=== PATIENT | male | born 1955 | race Caucasian/White ===

== ENCOUNTER 2024-08-28 14:06 | Emergency (ER) | payer MEDICARE, MEDICAID, SELFPAY ==
[2024-08-28] VITALS (9 sets, daily range): BP systolic 114–176; BP diastolic 41–98; PULSE 67–94; RESP 18–22; TEMP 36.7; O2SAT 92–100; BMI 57.7
--- NOTE | 2024-08-28 14:45 | ED_ITS ---
Documented by User: JARAD Joseph 08/28/24 17:04 HPI - Wound/Laceration 2 General: Chief Complaint: Wound/Laceration Stated Complaint: bleeding in back (just had surgery) Time Seen by Provider: 08/28/24 14:07 Source: patient and family Mode of arrival: wheelchair Limitations: no limitations History of Present Illness: Patient is a 69-year-old male who overall is a poor historian, here along with his significant other for evaluation of bleeding involving a lower back wound. Patient states back in mid May they underwent surgery for an area to his lower back that they described as a cyst . They state following the surgery they never had any formal follow-up with the surgeon. They have since been following up with wound care in [place] over the past 3 months. At some point they did have a wound VAC on the area. states they were recently told that it was cancer. Unknown why this diagnosis took so long to be established as original surgery was back in May. thinks maybe they repeated some type of biopsy through wound care? Ultimately felt like area was healing but over the past 2 weeks it has significantly worsened. Patient and seem fed up with [place] and want to move all of his services here. Patient states he is a diabetic. His main complaint today was that the wound is saturating his dressing with bloody discharge. Onset (ago): week(s) Location: back Associated symptoms: Reports no associated symptoms; Denies chills or fever(s) Related Data Home Medications Medication Instructions Recorded Confirmed atorvastatin 20 mg tablet 20 mg PO QPM 08/28/24 08/28/24 fluticasone propionate 50 2 spray intranasal DAILY 08/28/24 08/28/24 mcg/actuation nasal spray,suspension gabapentin 100 mg capsule 100 mg PO QID 08/28/24 08/28/24 glipizide 10 mg tablet 10 mg PO DAILY 08/28/24 08/28/24 hydralazine 10 mg tablet 10 mg PO TID 08/28/24 08/28/24 hydrocodone 7.5 mg-acetaminophen 1 tab PO .Q4-6H PRN Pain 08/28/24 08/28/24 325 mg tablet insulin glargine 100 unit/mL (3 See Rx Instructions .Route .COMPLEX 08/28/24 08/28/24 mL) subcutaneous pen (Lantus Solostar U-100 Insulin) ipratropium 20 mcg-albuterol 100 2 puff inhalation QID 08/28/24 08/28/24 mcg/actuation mist for inhalation (Combivent Respimat) levofloxacin 500 mg tablet 500 mg PO DAILY 08/28/24 08/28/24 lisinopril 40 mg tablet 40 mg PO DAILY 08/28/24 08/28/24 metformin 1,000 mg tablet 1,000 mg PO BID 08/28/24 08/28/24 metronidazole 1 % topical gel 1 applic topical DAILY 08/28/24 08/28/24 pantoprazole 40 mg tablet,delayed 40 mg PO DAILY 08/28/24 08/28/24 release potassium chloride 20 mEq 20 meq PO DAILY 08/28/24 08/28/24 tablet,extended release(part/cryst) sitagliptin phosphate 100 mg 100 mg PO DAILY 08/28/24 08/28/24 tablet (Januvia) zolpidem 5 mg tablet 5 mg PO BEDTIME PRN Sleep 08/28/24 08/28/24 Allergies Allergy/AdvReac Type Severity Reaction Status Date / Time Penicillins Allergy Unknown Verified 08/28/24 14:42 Review of Systems 2 Const: Denies: fever(s), chills, body aches, fatigue or malaise Card: Denies: chest pain Resp: Denies: dyspnea GI: Denies: abdominal pain : Denies: flank pain or dysuria Musc: Reports: back pain; Denies: neck pain, extremity pain, extremity swelling, joint pain or joint swelling Skin/Breast: Reports: other (wound to lower back) Neuro: Denies: headache(s), numbness in extremities, weakness in extremities or sensory changes Physical Exam 2 Const: COMMON NORMALS: no acute distress, patient oriented x3 and alert E XAM LIMITATIONS: other limitations (poor historian; grumpy/agitated ) GENERAL APPEARANCE: cooperative NUTRITIONAL APPEARANCE: obese morbidly obese (super morbid obesity with a BMI of 57.7) ORIENTATION/CONSCIOUSNESS: Yes awake, Yes oriented to person, Yes oriented to place and Yes oriented to time Resp: COMMON NORMALS: normal respiratory effort and clear to auscultation bilaterally AUSCULTATION: clear to auscultation bilaterally Cardio: COMMON NORMALS: regular rate and regular rhythm RATE: regular rate RHYTHM: regular rhythm : COMMON NORMALS: Yes no CVA tenderness BLADDER/KIDNEY EXAM: Yes no CVA tenderness Back/Pelvis: COMMON NORMALS: no CVA tenderness BACK IMAGE (MALE): 1. patient has a very large probable necrotic foul smelling tumor involving his lower back; dressing is saturated with blood but I do not see any active bleeding with inspection; he has significant surrounding edema involving his lower back Extremity: GENERAL: Yes normal exam except as noted Neuro: ROSA COMA SCALE: document GCS findings Rosa coma scale eye opening: Spontaneous Rosa coma scale verbal response: Orientated Guthrie coma scale motor response: Obey commands Guthrie coma scale total score: 15 COMMON NORMALS: patient oriented x3, moves all extremities, no focal motor deficits and no sensory deficits noted SENSORIUM/ORIENTATION: Yes alert, Yes oriented to person, Yes oriented to place and Yes oriented to time Skin: NARRATIVE SKIN EXAM: see above Course 2 Vital Signs: Vital signs: Vital Signs Temperature 98.0 F 08/28/24 14:29 Pulse Rate 94 08/28/24 23:41 Respiratory Rate 22 H 08/28/24 23:41 Blood Pressure 114/72 08/28/24 23:41 Pulse Oximetry 100 08/28/24 23:41 Oxygen Delivery Me thod Room Air 08/28/24 23:41 MDM - Wound/Laceration Lab Data 08/28/24 15:30 08/28/24 15:[address] 08/28/24 15:06 IMPRESSION: There is a large cavitary mass in the lower midline back extending from the skin surface down to the spinous process L4 measuring at least 14.8 x 9.6 x 11.2 cm on (series 4, image 7). This is concerning for neoplasm. Laboratory Results WBC 13.62 10^3/uL (3.29-11.43) H 08/28/24 15:30 RBC 4.74 10^6/uL (3.85-5.65) 08/28/24 15:30 Hgb 11.90 g/dL (11.27-16.99) 08/28/24 15:30 Hct 38.7 % (37-53) 08/28/24 15:30 MCV 81.6 fl (82-101) L 08/28/24 15:30 MCH 25.1 pg (27-33) L 08/28/24 15:30 MCHC 30.7 g/dL (30-55) 08/28/24 15:30 RDW 14.4 % (12.1-15.1) 08/28/24 15:30 Plt Count 374 10^3/cmm (157-399) 08/28/24 15:30 MPV 9.4 fL (7.4-10.4) 08/28/24 15:30 Neut % (Auto) 76.7 % 08/28/24 15:30 Lymph % (Auto) 14.8 % 08/28/24 15:30 [place] % (Auto) 6.1 % 08/28/24 15:30 Eos % (Auto) 1.8 % 08/28/24 15:30 Baso % (Auto) 0.4 % 08/28/24 15:30 Neut # (Auto) 10.44 10^3/uL (1.8-7.7) H 08/28/24 15:30 Lymph # (Auto) 2.0 10^3/uL (0.8-4.8) 08/28/24 15:30 [place] # (Auto) 0.8 10^3/uL (0.2-0.9) 08/28/24 15:30 Eos # (Auto) 0.2 10^3/uL (0.0-0.8) 08/28/24 15:30 Baso # (Auto) 0.1 10^3/uL (0.0-0.1) 08/28/24 15:30 Nucleated RBC % (auto) 0 % 08/28/24 15:30 Nucleated RBCs # 0.0 /100WBC 08/28/24 15:30 ESR 27 mm/hr (0-10) H 08/28/24 15:30 Sodium 136 mmol/L (136-145) 08/28/24 15:30 Potassium 4.2 mmol/L (3.5-5.1) 08/28/24 15:30 Chloride 99 mmol/L (98-107) 08/28/24 15:30 Carbon Dioxide 25 mmol/L (22-29) 08/28/24 15:30 Anion Gap 16.2 (5-19) 08/28/24 15:30 BUN 10 mg/dL (8-23) 08/28/24 15:30 Creatinine 0.7 mg/dL (0.7-1.2) 08/28/24 15:30 GFR Calculation 112.5 mL/min (90-130) 08/28/24 15:30 Glucose 130 mg/dL (65-115) H 08/28/24 15:30 POC Glucose 126 mg/dL (70-110) H 08/28/24 18:54 Calculated Osmolality 283 mOsm/kg (285-295) L 08/28/24 15:30 Lactic Acid 3.3 mmol/L (0.5-2.2) H 08/28/24 15:30 Lactic Acid (Sepsis) 2.0 mmol/L (0.5-2.2) 08/28/24 18:31 Calcium 9.5 mg/dL (8.5-10.5) 08/28/24 15:30 Total Bilirubin 0.3 mg/dL (0.15-1.2) 08/28/24 15:30 AST 13 U/L (0-40) 08/28/24 15:30 ALT 12 U/L (0-41) 08/28/24 15:30 Alkaline Phosphatase 75 U/L (40-130) 08/28/24 15:30 C-Reactive Protein 43.9 mg/L (0.0-4.9) H 08/28/24 15:30 Total Protein 7.1 g/dL (6.6-8.7) 08/28/24 15:30 Albumin 3.7 g/dL (3.5-5.2) 08/28/24 15:30 Globulin 3.4 g/dL (1.3-4.6) 08/28/24 15:30 Discharge Plan Discharge Patient Disposition: Transfer to ED Clinical Impression: Mass on back Condition: Stable Prescriptions: No Action hydralazine 10 mg tablet 10 mg PO TID atorvastatin 20 mg tablet 20 mg PO QPM glipizide 10 mg tablet 10 mg PO DAILY hydrocodone-acetaminophen 7.5-325 mg tablet 1 tab PO .Q4-6H PRN (Reason: Pain) pantoprazole 40 mg tablet,delayed release (DR/EC) 40 mg PO DAILY metformin 1,000 mg tablet 1,000 mg PO BID zolpidem 5 mg tablet 5 mg PO BEDTIME PRN (Reason: Sleep) gabapentin 100 mg capsule 100 mg PO QID levofloxacin 500 mg tablet 500 mg PO DAILY lisinopril 40 mg tablet 40 mg PO DAILY fluticasone propionate 50 mcg/actuation spray,suspension 2 spray INTRANASAL DAILY metronidazole 1 % gel 1 applic TOPICAL DAILY Januvia 100 mg tablet 100 mg PO DAILY insulin glargine [Lantus Solostar U-100 Insulin] 100 unit/mL (3 mL) insulin pen See Rx Instructions .ROUTE .COMPLEX Rx Instructions: INJECT 50 UNITS subcutaneously DAILY; INCREASE BY 2 UNITS EVERY TUESDAY AND TUESDAY IF PRIOR BLOOd SUGAR > 140. MAX 100 UNITS DAILY Combivent Respimat 20-100 mcg/actuation mist 2 puff INHALATION QID potassium chloride 20 mEq tablet,ER particles/crystals 20 meq PO DAILY Referrals: OCTAVIO Peters FNP [Primary Care Provider] - Tao,SVETLANA Sawyer [Family Provider] - Sign Out Sign Out Data: Patient Sign Out occurred on 08/28/24 at 17:10. Patient's care was discussed, and care was transferred from JARAD Joseph to JARAD Cotto. Coding Level of Care Code ED Residential Recycle Driver for Chg Fwd Documented by User: JARAD Cotto 08/28/24 23:58 HPI - Wound/Laceration 2 General: Chief Complaint: Wound/Laceration Stated Complaint: bleeding in back (just had surgery) Time Seen by Provider: 08/28/24 14:07 Related Data Home Medications Medication Instructions Recorded Confirmed atorvastatin 20 mg tablet 20 mg PO QPM 08/28/24 08/28/24 fluticasone propionate 50 2 spray intranasal DAILY 08/28/24 08/28/24 mcg/actuation nasal spray,suspension gabapentin 100 mg capsule 100 mg PO QID 08/28/24 08/28/24 glipizide 10 mg tablet 10 mg PO DAILY 08/28/24 08/28/24 hydralazine 10 mg tablet 10 mg PO TID 08/28/24 08/28/24 hydrocodone 7.5 mg-acetaminophen 1 tab PO .Q4-6H PRN Pain 08/28/24 08/28/24 325 mg tablet insulin glargine 100 unit/mL (3 See Rx Instructions .Route .COMPLEX 08/28/24 08/28/24 mL) subcutaneous pen (Lantus Solostar U-100 Insulin) ipratropium 20 mcg-albuterol 100 2 puff inhalation QID 08/28/24 08/28/24 mcg/actuation mist for inhalation (Combivent Respimat) levofloxacin 500 mg tablet 500 mg PO DAILY 08/28/24 08/28/24 lisinopril 40 mg tablet 40 mg PO DAILY 08/28/24 08/28/24 metformin 1,000 mg tablet 1,000 mg PO BID 08/28/24 08/28/24 metronidazole 1 % topical gel 1 applic topical DAILY 08/28/24 08/28/24 pantoprazole 40 mg tablet,delayed 40 mg PO DAILY 08/28/24 08/28/24 release potassium chloride 20 mEq 20 meq PO DAILY 08/28/24 08/28/24 tablet,extended release(part/cryst) sitagliptin phosphate 100 mg 100 mg PO DAILY 08/28/24 08/28/24 tablet (Januvia) zolpidem 5 mg tablet 5 mg PO BEDTIME PRN Sleep 08/28/24 08/28/24 Allergies Allergy/AdvReac Type Severity Reaction Status Date / Time Penicillins Allergy Unknown Verified 08/28/24 14:42 Physical Exam 2 Back/Pelvis: BACK IMAGE (MALE): 1. patient has a very large probable necrotic foul smelling tumor involving his lower back; dressing is saturated with blood but I do not see any active bleeding with inspection; he has significant surrounding edema involving his lower back Neuro: ROSA COMA SCALE: document GCS findings Guthrie coma scale total score: 15 Course 2 Vital Signs: Vital signs: Vital Signs Temperature 98.0 F 08/28/24 14:29 Pulse Rate 94 08/28/24 23:41 Respiratory Rate 22 H 08/28/24 23:41 Blood Pressure 114/72 08/28/24 23:41 Pulse Oximetry 100 08/28/24 23:41 Oxygen Delivery Nh thod Room Air 08/28/24 23:41 MDM - Wound/Laceration Medical Decision Making Care of patient transferred to id by dayshift provider. This patient had presented with pain to low back, associated with a large lumbar lesion. He had surgical I&D back in May, however he never followed up with general surgery. He did state that he had this lesion biopsied and was told it was cancerous, however does not note any oncological follow-up. Instead his had been tending to the wound and he did note following up with wound care, reports were obtained from the procedure initially as well as from wound care. CT here showed large cavitary mass that extended from skin to L4 and seemed to resemble a neoplastic process. Initially I called [facility], where he had the initial procedure performed, and spoke with orthopedics as well as general surgery. Physician that did the procedure was a locum and was not available to speak, however after physicians there reviewed images of the lesion as well as his CT scan, recommended this be transferred to a tertiary facility with surgical oncology. After calling [facility], [facility], and [facility], there was no availability. Finally spoke with surgical oncologist, Dr. Ortiz at [facility], who agrees to accept the patient and is requesting that we transfer patient's chart if we can track down his pathology reports and previous surgical note. I then spoke with a Dr. Rosado in the emergency department who kindly agrees to accept the patient for transfer ED to ED. Patient's vitals and pain have been completely stable throughout the ED stay. Although his initial lactic was elevated at 3.3, reflex noted to be 2.0, this was after being given dose of IV Vanco and fluids. I informed patient and of plan for transfer, they are agreeing with the plan at this time and all other questions and concerns addressed. Discussed this case with Dr. Liseth weber in the emergency department. Awaiting BLS transfer at this time. Lab Data 08/28/24 15:30 08/28/24 15:[address] 08/28/24 15:06 IMPRESSION: There is a large cavitary mass in the lower midline back extending from the skin surface down to the spinous process L4 measuring at least 14.8 x 9.6 x 11.2 cm on (series 4, image 7). This is concerning for neoplasm. Laboratory Results WBC 13.62 10^3/uL (3.29-11.43) H 08/28/24 15:30 RBC 4.74 10^6/uL (3.85-5.65) 08/28/24 15:30 Hgb 11.90 g/dL (11.27-16.99) 08/28/24 15: Hct 38.7 % (37-53) 08/28/24 15:30 MCV 81.6 fl (82-101) L 08/28/24 15: MCH 25.1 pg (27-33) L 08/28/24 15: MCHC 30.7 g/dL (30-55) 08/28/24 15: RDW 14.4 % (12.1-15.1) 08/28/24 15: Plt Count 374 10^3/cmm (157-399) 08/28/24 15: MPV 9.4 fL (7.4-10.4) 08/28/24 15: Neut % (Auto) 76.7 % 08/28/24 15: Lymph % (Auto) 14.8 % 08/28/24 15:30 [place] % (Auto) 6.1 % 08/28/24 15:30 Eos % (Auto) 1.8 % 08/28/24 15: Baso % (Auto) 0.4 % 08/28/24 15: Neut # (Auto) 10.44 10^3/uL (1.8-7.7) H 08/28/24 15:30 Lymph # (Auto) 2.0 10^3/uL (0.8-4.8) 08/28/24 15:30 [place] # (Auto) 0.8 10^3/uL (0.2-0.9) 08/28/24 15:30 Eos # (Auto) 0.2 10^3/uL (0.0-0.8) 08/28/24 15:30 Baso # (Auto) 0.1 10^3/uL (0.0-0.1) 08/28/24 15:30 Nucleated RBC % (auto) 0 % 08/28/24 15: Nucleated RBCs # 0.0 /100WBC 08/28/24 15: ESR 27 mm/hr (0-10) H 08/28/24 15:30 Sodium 136 mmol/L (136-145) 08/28/24 15:30 Potassium 4.2 mmol/L (3.5-5.1) 08/28/24 15:30 Chloride 99 mmol/L (98-107) 08/28/24 15:30 Carbon Dioxide 25 mmol/L (22-29) 08/28/24 15:30 Anion Gap 16.2 (5-19) 08/28/24 15:30 BUN 10 mg/dL (8-23) 08/28/24 15:30 Creatinine 0.7 mg/dL (0.7-1.2) 08/28/24 15:30 GFR Calculation 112.5 mL/min (90-130) 08/28/24 15:30 Glucose 130 mg/dL (65-115) H 08/28/24 15:30 POC Glucose 126 mg/dL (70-110) H 08/28/24 18:54 Calculated Osmolality 283 mOsm/kg (285-295) L 08/28/24 15:30 Lactic Acid 3.3 mmol/L (0.5-2.2) H 08/28/24 15:30 Lactic Acid (Sepsis) 2.0 mmol/L (0.5-2.2) 08/28/24 18:31 Calcium 9.5 mg/dL (8.5-10.5) 08/28/24 15:30 Total Bilirubin 0.3 mg/dL (0.15-1.2) 08/28/24 15:30 AST 13 U/L (0-40) 08/28/24 15:30 ALT 12 U/L (0-41) 08/28/24 15:30 Alkaline Phosphatase 75 U/L (40-130) 08/28/24 15:30 C-Reactive Protein 43.9 mg/L (0.0-4.9) H 08/28/24 15:30 Total Protein 7.1 g/dL (6.6-8.7) 08/28/24 15:30 Albumin 3.7 g/dL (3.5-5.2) 08/28/24 15:30 Globulin 3.4 g/dL (1.3-4.6) 08/28/24 15:30 All radiology interpretation(s) finalized by discharge Discharge Plan Discharge Patient Disposition: Transfer to ED Clinical Impression: Mass on back Condition: Stable Prescriptions: No Action hydralazine 10 mg tablet 10 mg PO TID atorvastatin 20 mg tablet 20 mg PO QPM glipizide 10 mg tablet 10 mg PO DAILY hydrocodone-acetaminophen 7.5-325 mg tablet 1 tab PO .Q4-6H PRN (Reason: Pain) pantoprazole 40 mg tablet,delayed release (DR/EC) 40 mg PO DAILY metformin 1,000 mg tablet 1,000 mg PO BID zolpidem 5 mg tablet 5 mg PO BEDTIME PRN (Reason: Sleep) gabapentin 100 mg capsule 100 mg PO QID levofloxacin 500 mg tablet 500 mg PO DAILY lisinopril 40 mg tablet 40 mg PO DAILY fluticasone propionate 50 mcg/actuation spray,suspension 2 spray INTRANASAL DAILY metronidazole 1 % gel 1 applic TOPICAL DAILY Januvia 100 mg tablet 100 mg PO DAILY insulin glargine [Lantus Solostar U-100 Insulin] 100 unit/mL (3 mL) insulin pen See Rx Instructions .ROUTE .COMPLEX Rx Instructions: INJECT 50 UNITS subcutaneously DAILY; INCREASE BY 2 UNITS EVERY TUESDAY AND TUESDAY IF PRIOR BLOOd SUGAR > 140. MAX 100 UNITS DAILY Combivent Respimat 20-100 mcg/actuation mist 2 puff INHALATION QID potassium chloride 20 mEq tablet,ER particles/crystals 20 meq PO DAILY Referrals: OCTAVIO Peters FNP [Primary Care Provider] - Tao,SVETLANA Sawyer [Family Provider] - Sign Out Sign Out Data: Patient Sign Out occurred on 08/28/24 at 17:10. Patient's care was discussed, and care was transferred from JARAD Joseph to JARAD Cotto. Coding Level of Care Code ED Residential Recycle Driver for Justine Hilliard
--- NOTE | 2024-08-28 15:06 | CTR_ITS ---
PROCEDURE INFORMATION: Exam: CT Pelvis With Contrast Exam date and time: 08/28/2024 5:51 PM Age: 69 years old Clinical indication: Mass, lump, or swelling; Other: Sacral region; Prior surgery; Surgery date: 1-6 months; Surgery type: Spot removed from base of spine x3 mon ago; Additional info: Necrotic tumor lower back TECHNIQUE: Imaging protocol: Computed tomography of the pelvis with contrast. Radiation optimization: All CT scans at this facility use at least one of these dose optimization techniques: automated exposure control; mA and/or kV adjustment per patient size (includes targeted exams where dose is matched to clinical indication); or iterative reconstruction. Contrast material: OMNIPAQUE 350; Contrast volume: 100 ml; Contrast route: INTRAVENOUS (IV); COMPARISON: US scrotum [id number] 09/28/2019 9:50 PM RADIATION DOSE METRICS: Total DLP (mGy-cm): 1795.63 FINDINGS: Intestine: Visualized small and large intestine are unremarkable. Appendix: No evidence of appendicitis. Intraperitoneal space: Unremarkable. No free air. No significant fluid collection. Lymph nodes: Unremarkable. No enlarged lymph nodes. Reproductive: Normal as visualized. Urinary bladder: Normal. No mass. Bones/joints: There is a large cavitary mass in the lower midline back extending from the skin surface down to the spinous process L4 measuring at least 14.8 x 9.6 x 11.2 cm on (series 4, image 7). This is concerning for neoplasm. Soft tissues: Unremarkable. CT/CT pelvis w con* [id number] IMPRESSION: There is a large cavitary mass in the lower midline back extending from the skin surface down to the spinous process L4 measuring at least 14.8 x 9.6 x 11.2 cm on (series 4, image 7). This is concerning for neoplasm.
--- NOTE | 2024-08-28 15:44 | PC.PHAR ---
Addendum entered by Cortney Bird 08/28/24 15:45: pt states preferred pharmacy is [facility] but current med list is at [facility] Original Note: med rec completed via current pharmacy med list faxed from [facility] in [place].
[2024-08-28 15:48] LABS: Basophils # 0.1 10^3/uL (0.0-0.1); Basophils % 0.4 %; Eosinophils # 0.2 10^3/uL (0.0-0.8); Eosinophils % 1.8 %; Hematocrit 38.7 % (37-53); Lymphocytes % 14.8 %; Mean Corpuscular HGB Conc 30.7 g/dL (30-55); Mean Corpuscular Hemoglobin 25.1 pg (27-33); Mean Corpuscular Volume 81.6 fl (82-101); Mean Platelet Volume 9.4 fL (7.4-10.4); Monocytes # 0.8 10^3/uL (0.2-0.9); Monocytes % 6.1 %; Neutrophils # 10.44 10^3/uL (1.8-7.7); Neutrophils % 76.7 %; Nucleated Red Blood Cells % 0 %; Platelet Count 374 10^3/cmm (157-399); Red Blood Count 4.74 10^6/uL (3.85-5.65); Red Cell Distribution Width 14.4 % (12.1-15.1); White Blood Count 13.62 10^3/uL (3.29-11.43)
[2024-08-28 16:04] LABS: Lactic Sepsis W/Reflex 3.3 mmol/L (0.5-2.2)
[2024-08-28 16:05] LABS: Alanine Aminotransferase 12 U/L (0-41); Albumin Level 3.7 g/dL (3.5-5.2); Alkaline Phosphatase 75 U/L (40-130); Anion Gap 16.2 (5-19); Aspartate Amino Transferase 13 U/L (0-40); Blood Urea Nitrogen 10 mg/dL (8-23); Calcium 9.5 mg/dL (8.5-10.5); Carbon Dioxide 25 mmol/L (22-29); Chloride 99 mmol/L (98-107); Globulin 3.4 g/dL (1.3-4.6); Glomerular Filtration Rate 112.5 mL/min (90-130); Glucose 130 mg/dL (65-115); Osmolality Calculated 283 mOsm/kg (285-295); Potassium 4.2 mmol/L (3.5-5.1); Sodium 136 mmol/L (136-145); Total Bilirubin 0.3 mg/dL (0.15-1.2); Total Protein 7.1 g/dL (6.6-8.7)
[2024-08-28] MEDS: HYDROmorphone 1 mg/mL INJ 1 mL IVP (17:27)
[2024-08-28 17:29] LABS: Erythrocyte Sedimentation Rate 27 mm/hr (0-10); Reflex Lactate Order REFLEX LACTIC ORDERD
[2024-08-28 17:48] LABS: C Reactive Protein 43.9 mg/L (0.0-4.9)
[2024-08-28] MEDS: iohexol 350 mg/mL 500 mL Btl (per mL) IV (17:54)
[2024-08-28] MEDS: vancomycin 1,250 MG/250 ML PIGGYBACK 166.67 MG IV (18:14)
[2024-08-28 18:56] LABS: Glucose Point of Care 126 mg/dL (70-110)
--- NOTE | 2024-08-28 19:41 | PC.NURSE ---
Pt has asked multiple times for something to eat, pt is diabetic, this nurse checked blood sugar, 126, B. Malena notified, Malena reports as NPO at this time until he speaks to the surgeon, Pt informed of this verbally.
--- NOTE | 2024-08-28 21:11 | PC.NURSE ---
Malena reports that pt may eat, pt given sandwich, jello, pudding, and sprite zero.
--- NOTE | 2024-08-29 00:05 | PC.NURSE ---
called [facility] [id number] for pt transfer. They are unable to transfer at this time d/t pending transfer from the floor.
[2024-08-29] MEDS: HYDROmorphone 1 mg/mL INJ 1 mL IVP (00:48)
[2024-08-29 00:59] VITALS: BP 119/66; PULSE 73; RESP 18; O2SAT 99
== END 2024-08-29 01:02 ==
PROVIDERS: Emergency Medicine; Physician Assistant; Emergency Provider Physician Assistant; PCP Nurse Practitioner Family
DX: R22.2 Localized swelling, mass and lump, trunk (principal); Z79.4 Long term (current) use of insulin; Z79.84 Long term (current) use of oral hypoglycemic drugs; E11.9 Type 2 diabetes mellitus without complications
CPT/HCPCS: 36416; 72193; 80053; 82962; 83605; 85025; 85651; 86140; 87040; 87070; 87075; 87077; 87186; 87205; 96365; 96366; 96375; 96376; 99285; J1171; J3370

== ENCOUNTER 2024-09-28 15:14 | Emergency (ER) | payer MEDICARE, MEDICAID, SELFPAY ==
[2024-09-28 15:22] VITALS: BP 125/62; PULSE 84; RESP 17; O2SAT 98
[2024-09-28 15:26] VITALS: BP 125/62; PULSE 84; RESP 16; O2SAT 98
--- NOTE | 2024-09-28 15:31 | CTR_ITS ---
PROCEDURE INFORMATION: Exam: CT Head Without Contrast Exam date and time: 09/28/2024 3:37 PM Age: 69 years old Clinical indication: Stroke-like symptoms; Dizziness/giddiness TECHNIQUE: Imaging protocol: Computed tomography of the head without contrast. Radiation optimization: All CT scans at this facility use at least one of these dose optimization techniques: automated exposure control; mA and/or kV adjustment per patient size (includes targeted exams where dose is matched to clinical indication); or iterative reconstruction. Other technique: STROKE PROTOCOL was implemented. COMPARISON: No relevant prior studies available. RADIATION DOSE METRICS: Total DLP (mGy-cm): 1247.88 FINDINGS: Brain: There is volume loss. There is extensive white matter lucency most likely to represent chronic microvascular disease. There are old basal ganglia lacunar infarcts. No acute infarct is identified. There is no hemorrhage or extra-axial collection. There is no mass. Cerebral ventricles: Ventricular size is proportionate to volume loss. Paranasal sinuses: Small retention cysts in the maxillary sinuses. No air-fluid levels. Mastoid air cells: Visualized mastoid air cells are well aerated. Bones: Unremarkable. No acute fracture. Soft tissues: Unremarkable. CT/CT head thrombolytic [id number] IMPRESSION: 1. 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 2. No acute intracranial lesion or injury ASSESSMENT: ASPECTS ([place] Stroke Program Early CT Score) is 10.
--- NOTE | 2024-09-28 15:42 | ED_ITS ---
HPI - Dizziness 2 General: Chief Complaint: Dizziness Stated Complaint: dizziness after insulin Time Seen by Provider: 09/28/24 15:19 History of Present Illness: HPI Narrative: 69-year-old man with a history of morbid obesity, diabetes, hypertension who presents the emergency room after having an episode of vertigo that was fairly brief. He said he also briefly felt some numbness in his right arm and shoulder area. He associates this with how he is taking his insulin and his other medications. He arrives by ambulance. Currently no focal motor deficits. Related Data Home Medications Medication Instructions Recorded Confirmed atorvastatin 20 mg tablet 20 mg PO QPM 08/28/24 09/28/24 fluticasone propionate 50 2 spray intranasal DAILY 08/28/24 09/28/24 mcg/actuation nasal spray,suspension gabapentin 100 mg capsule 100 mg PO QID 08/28/24 09/28/24 glipizide 10 mg tablet 10 mg PO DAILY 08/28/24 09/28/24 hydralazine 10 mg tablet 10 mg PO TID 08/28/24 09/28/24 insulin glargine 100 unit/mL (3 See Rx Instructions .Route .COMPLEX 08/28/24 09/28/24 mL) subcutaneous pen (Lantus Solostar U-100 Insulin) ipratropium 20 mcg-albuterol 100 2 puff inhalation QID 08/28/24 09/28/24 mcg/actuation mist for inhalation (Combivent Respimat) lisinopril 40 mg tablet 40 mg PO DAILY 08/28/24 09/28/24 metformin 1,000 mg tablet 1,000 mg PO BID 08/28/24 09/28/24 metronidazole 1 % topical gel 1 applic topical DAILY 08/28/24 09/28/24 pantoprazole 40 mg tablet,delayed 40 mg PO DAILY 08/28/24 08/28/24 release potassium chloride 20 mEq 20 meq PO DAILY 08/28/24 08/28/24 tablet,extended release(part/cryst) sitagliptin phosphate 100 mg 100 mg PO DAILY 08/28/24 08/28/24 tablet (Januvia) zolpidem 5 mg tablet 5 mg PO BEDTIME PRN Sleep 08/28/24 08/28/24 oxycodone 5 mg tablet 5 mg PO Q6H PRN Pain 09/28/24 09/28/24 Previous Rx's Medication Instructions Recorded meclizine 25 mg tablet 25 mg PO QID PRN dizziness #20 tabs 09/28/24 Allergies Allergy/AdvReac Type Severity Reaction Status Date / Time Penicillins Allergy Unknown Verified 08/28/24 14:42 Course 2 Vital Signs: Vital signs: Vital Signs Pulse Rate 84 09/28/24 16:39 Respiratory Rate 20 H 09/28/24 16:39 Blood Pressure 186/71 09/28/24 16:39 Pulse Oximetry 98 09/28/24 16:39 Oxygen Delivery Me thod Room Air 09/28/24 16:39 MDM - Dizziness Medical Decision Making Medical decision making: Differential diagnosis including but not limited to and based on the above HPI, review of systems and physical exam: for patient with complaint of dizziness: stroke, hypotension, hypertension, infection, vertigo, orthostasis Orders placed to evaluate differential diagnosis based on the above differential, HPI and physical exam MDM: Patient has resolved symptoms but had some paresthesia down his arm and some vertigo. These also could be TIA type symptoms so a stroke alert was called initially. CT head: No acute intracranial process. no intracranial hemorrhage, no evidence of infarct. no evidence of acute fracture.This was reviewed and interpreted by myself the ER physician. Patient has quite a bit of microvascular changes. EKG: Time 1607. Rate 85. Normal sinus rhythm, No ST-T changes, no ectopy, normal NE & QRS intervals, This was reviewed and interpreted by myself the ER physician at 1610 Lab Review: Laboratory results were reviewed and interpreted by myself the emergency room physician. Lab work is unremarkable. No leukocytosis. No anemia. No renal failure. I reviewed the patient's medical record. Review of the chart shows that patient has chronic vertigo type symptoms. Reexamination: Patient remained stable. No increased work of breathing. No altered mental status. No focal motor deficits. Further with patient sounds like he has been having paresthesias in his arms and legs migratory early. This does not seem like a TIA. However I did suggest that he go from a baby aspirin to a full- strength aspirin he is already on a statin. I recommend he follow with his primary in the very near future. Assessment and plan: Vertigo, benign positional, chronic, intermittent Paresthesias - Discharged home - Discussed plan with patient. Answered any questions. - Evaluation and treatment of this problem were appropriate in the emergency setting. Lab Data 09/28/24 15:34 09/28/24 15:[address] 09/28/24 15:31 IMPRESSION: 1. 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 2. No acute intracranial lesion or injury ASSESSMENT: ASPECTS (Rebecca Stroke Program Early CT Score) is 10. ADDENDUM: 09/28/24 1558 Findings were discussed with JEWELS DILLON at 09/28/2024 3:57 PM LOZENGE MAKER. Laboratory Results WBC 8.93 10^3/uL (3.29-11.43) 09/28/24 15:34 RBC 4.71 10^6/uL (3.85-5.65) 09/28/24 15:34 Hgb 11.60 g/dL (11.27-16.99) 09/28/24 15:34 Hct 37.6 % (37-53) 09/28/24 15:34 MCV 79.8 fl (82-101) L 09/28/24 15:34 MCH 24.6 pg (27-33) L 09/28/24 15:34 MCHC 30.9 g/dL (30-55) 09/28/24 15:34 RDW 15.2 % (12.1-15.1) H 09/28/24 15:34 Plt Count 334 10^3/cmm (157-399) 09/28/24 15:34 MPV 9.7 fL (7.4-10.4) 09/28/24 15:34 Neut % (Auto) 80.4 % 09/28/24 15:34 Lymph % (Auto) 10.4 % 09/28/24 15:34 [place] % (Auto) 7.1 % 09/28/24 15:34 Eos % (Auto) 1.3 % 09/28/24 15:34 Baso % (Auto) 0.4 % 09/28/24 15:34 Neut # (Auto) 7.17 10^3/uL (1.8-7.7) 09/28/24 15:34 Lymph # (Auto) 0.9 10^3/uL (0.8-4.8) 09/28/24 15:34 [place] # (Auto) 0.6 10^3/uL (0.2-0.9) 09/28/24 15:34 Eos # (Auto) 0.1 10^3/uL (0.0-0.8) 09/28/24 15:34 Baso # (Auto) 0.0 10^3/uL (0.0-0.1) 09/28/24 15:34 Nucleated RBC % (auto) 0 % 09/28/24 15:34 Nucleated RBCs # 0.0 /100WBC 09/28/24 15:34 Sodium 135 mmol/L (136-145) L 09/28/24 15:34 Potassium 4.2 mmol/L (3.5-5.1) 09/28/24 15:34 Chloride 97 mmol/L (98-107) L 09/28/24 15:34 Carbon Dioxide 26 mmol/L (22-29) 09/28/24 15:34 Anion Gap 16.2 (5-19) 09/28/24 15:34 BUN 12 mg/dL (8-23) 09/28/24 15:34 Creatinine 0.8 mg/dL (0.7-1.2) 09/28/24 15:34 GFR Calculation 96.4 mL/min (90-130) 09/28/24 15:34 Glucose 106 mg/dL (65-115) 09/28/24 15:34 Calculated Osmolality 280 mOsm/kg (285-295) L 09/28/24 15:34 Calcium 10.1 mg/dL (8.5-10.5) 09/28/24 15:34 Total Bilirubin 0.2 mg/dL (0.15-1.2) 09/28/24 15:34 AST 20 U/L (0-40) 09/28/24 15:34 ALT 19 U/L (0-41) 09/28/24 15:34 Alkaline Phosphatase 82 U/L (40-130) 09/28/24 15:34 Total Protein 7.1 g/dL (6.6-8.7) 09/28/24 15:34 Albumin 3.6 g/dL (3.5-5.2) 09/28/24 15:34 Globulin 3.5 g/dL (1.3-4.6) 09/28/24 15:34 All radiology interpretation(s) finalized by discharge Discharge Plan Discharge Patient Disposition: Home Clinical Impression: Vertigo, Paresthesia Condition: Stable Prescriptions: New meclizine 25 mg tablet 25 mg PO QID PRN (Reason: dizziness) Qty: 20 0RF No Action hydralazine 10 mg tablet 10 mg PO TID atorvastatin 20 mg tablet 20 mg PO QPM glipizide 10 mg tablet 10 mg PO DAILY pantoprazole 40 mg tablet,delayed release (DR/EC) 40 mg PO DAILY metformin 1,000 mg tablet 1,000 mg PO BID zolpidem 5 mg tablet 5 mg PO BEDTIME PRN (Reason: Sleep) gabapentin 100 mg capsule 100 mg PO QID lisinopril 40 mg tablet 40 mg PO DAILY fluticasone propionate 50 mcg/actuation spray,suspension 2 spray INTRANASAL DAILY metronidazole 1 % gel 1 applic TOPICAL DAILY Januvia 100 mg tablet 100 mg PO DAILY insulin glargine [Lantus Solostar U-100 Insulin] 100 unit/mL (3 mL) insulin pen See Rx Instructions .ROUTE .COMPLEX Rx Instructions: INJECT 50 UNITS subcutaneously DAILY; INCREASE BY 2 UNITS EVERY TUESDAY AND TUESDAY IF PRIOR BLOOd SUGAR > 140. MAX 100 UNITS DAILY Combivent Respimat 20-100 mcg/actuation mist 2 puff INHALATION QID potassium chloride 20 mEq tablet,ER particles/crystals 20 meq PO DAILY oxycodone 5 mg Tablet 5 mg PO Q6H PRN (Reason: Pain) Discharge Orders: Discharge ED (Routine); Ordered 09/28/24 Ordered By: Jewels Dillon Referrals: OCTAVIO Peters, FIELD SERVICE ENGINEER [Primary Care Provider] - Discharge Diet: Usual diet Discharge Activity: Increase activity as tolerated Patient Instructions: Opioid Safety, Pain Management Activity Restrictions/Additional Instructions: Keep all follow-ups with your primary and your oncologist. I would also schedule an appointment with your primary to consider ultrasound of your carotid arteries. I would also take a full-strength aspirin daily until instructed otherwise by your primary physician. Thank you for choosing [facility] for your healthcare needs today. Please realize this is an emergency room and that we are providing you with a medical screening exam and this may not be complete and all inclusive of all the testing and or work up that you may need to determine your ailment or severity of your illness. You have been screened and evaluated and felt safe for discharge. Health conditions do change or evolve sometimes and as such it is important that you follow up with your Primary Doctor to be re checked, 3-5 days is a general good time frame for follow up. You are always welcome to return to the ED for re assessment if your symptoms are worsening or you have new concerns Coding Level of Care Code ED Dental Lab Technician for Justine Hilliard
[2024-09-28 15:45] LABS: Basophils % 0.4 %; Eosinophils # 0.1 10^3/uL (0.0-0.8); Eosinophils % 1.3 %; Hematocrit 37.6 % (37-53); Lymphocytes # 0.9 10^3/uL (0.8-4.8); Lymphocytes % 10.4 %; Mean Corpuscular HGB Conc 30.9 g/dL (30-55); Mean Corpuscular Hemoglobin 24.6 pg (27-33); Mean Corpuscular Volume 79.8 fl (82-101); Mean Platelet Volume 9.7 fL (7.4-10.4); Monocytes # 0.6 10^3/uL (0.2-0.9); Monocytes % 7.1 %; Neutrophils # 7.17 10^3/uL (1.8-7.7); Neutrophils % 80.4 %; Nucleated Red Blood Cells % 0 %; Platelet Count 334 10^3/cmm (157-399); Red Blood Count 4.71 10^6/uL (3.85-5.65); Red Cell Distribution Width 15.2 % (12.1-15.1); White Blood Count 8.93 10^3/uL (3.29-11.43)
[2024-09-28 16:01] LABS: Alanine Aminotransferase 19 U/L (0-41); Albumin Level 3.6 g/dL (3.5-5.2); Alkaline Phosphatase 82 U/L (40-130); Anion Gap 16.2 (5-19); Aspartate Amino Transferase 20 U/L (0-40); Blood Urea Nitrogen 12 mg/dL (8-23); Calcium 10.1 mg/dL (8.5-10.5); Carbon Dioxide 26 mmol/L (22-29); Chloride 97 mmol/L (98-107); Creatinine Clr Calc Pharmacy 143.7193; Globulin 3.5 g/dL (1.3-4.6); Glomerular Filtration Rate 96.4 mL/min (90-130); Glucose 106 mg/dL (65-115); Osmolality Calculated 280 mOsm/kg (285-295); Potassium 4.2 mmol/L (3.5-5.1); Sodium 135 mmol/L (136-145); Total Bilirubin 0.2 mg/dL (0.15-1.2); Total Protein 7.1 g/dL (6.6-8.7)
--- NOTE | 2024-09-28 16:07 | ECG_ITS ---
[facility] Test Date: 2024-09-28 Pat Name: Sohail Delgado Department: Room: Gender: Male Long Chain Beamer: : 1955 Requested By: Jewels Santana Order Number: [id number] Brumfield MD: Wilmer Hamm M.D. Measurements Intervals [place] Rate: 85 P: 5 [place]: 162 QRS: 3 QRSD: 77 T: 7 QT: 349 QTc: 415 Interpretive Statements SINUS RHYTHM LOW QRS VOLTAGE IN PRECORDIAL LEADS [QRS DEFLECTION < 1.0 mV IN CHEST LEADS] POSSIBLE ANTERIOR MYOCARDIAL INFARCTION , PROBABLY OLD [30 ms Q WAVE IN V3/V4, OR R < 0.2 mV IN V4] No previous ECG available for comparison Electronically Signed On 09-28-2024 21:55:07 ENCYCLOPEDIA RESEARCH WORKER by Wilmer Hamm M.D. [email or web address]
[2024-09-28 16:39] VITALS: BP 186/71; PULSE 84; RESP 20; O2SAT 98
== END 2024-09-28 17:46 | disposition home or self-care (01) ==
PROVIDERS: Emergency Provider Emergency Medicine; PCP Nurse Practitioner Family
DX: R42 Dizziness and giddiness (principal); R20.2 Paresthesia of skin; Z79.4 Long term (current) use of insulin; E11.9 Type 2 diabetes mellitus without complications; I10 Essential (primary) hypertension
CPT/HCPCS: 70450; 80053; 85025; 93005; 99284

== ENCOUNTER 2024-11-24 20:59 | Emergency (ER) | payer MEDICARE, MEDICAID, SELFPAY ==
[2024-11-24 21:07] VITALS: BP 187/76; PULSE 85; RESP 16; TEMP 36.6; O2SAT 95; BMI 52.9
--- NOTE | 2024-11-24 21:47 | ECG_ITS ---
[employer] Test Date: 2024-11-24 Pat Name: Sohail Delgado Department: Room: Gender: Male Ramp Supervisor: : 1955 Requested By: Warren Alves Order Number: [id number] Octaviano MD: LAURA DEVI Measurements Intervals [place] Rate: 76 P: 49 [place]: 165 QRS: 28 QRSD: 85 T: 29 QT: 370 QTc: 417 Interpretive Statements SINUS RHYTHM LOW QRS VOLTAGE IN PRECORDIAL LEADS [QRS DEFLECTION < 1.0 mV IN CHEST LEADS] Compared to ECG 09/28/2024 16:07:03 Myocardial infarct finding no longer present Electronically Signed On 11-25-2024 20:56:52 CLIP AND HANGER ATTACHER by LAURA DEVI [email or web address]
[2024-11-24 21:52] LABS: Basophils # 0.1 10^3/uL (0.0-0.1); Basophils % 0.6 %; Eosinophils # 0.3 10^3/uL (0.0-0.8); Eosinophils % 3.2 %; Hematocrit 37.6 % (37-53); Lymphocytes # 1.5 10^3/uL (0.8-4.8); Lymphocytes % 14.4 %; Mean Corpuscular HGB Conc 29.5 g/dL (30-55); Mean Corpuscular Hemoglobin 24.7 pg (27-33); Mean Corpuscular Volume 83.7 fl (82-101); Monocytes # 0.8 10^3/uL (0.2-0.9); Monocytes % 7.3 %; Neutrophils # 7.93 10^3/uL (1.8-7.7); Nucleated Red Blood Cells % 0 %; Platelet Count 324 10^3/cmm (157-399); Red Blood Count 4.49 10^6/uL (3.85-5.65); Red Cell Distribution Width 17.6 % (12.1-15.1)
[2024-11-24 22:11] LABS: Anion Gap 16.7 (5-19); Blood Urea Nitrogen 10 mg/dL (8-23); Carbon Dioxide 25 mmol/L (22-29); Chloride 101 mmol/L (98-107); Creatinine Clr Calc Pharmacy 144.6389; Glomerular Filtration Rate 112.5 mL/min (90-130); Glucose 172 mg/dL (65-115); Osmolality Calculated 289 mOsm/kg (285-295); Potassium 4.7 mmol/L (3.5-5.1); Sodium 138 mmol/L (136-145)
[2024-11-24 22:52] LABS: Covid PCR NEGATIVE (Negative); Influenza A NEGATIVE (Negative); Influenza B NEGATIVE (Negative); Respiratory Syncytial Virus Ce NEGATIVE (Negative)
== END 2024-11-24 23:09 | disposition left against medical advice (07) ==
LOC: ER 21:11
PROVIDERS: Emergency Medicine; Emergency Provider Family Medicine; PCP Nurse Practitioner Family
DX: Z53.21 Procedure and treatment not carried out due to patient leaving prior to being seen by health care provider (principal)
CPT/HCPCS: 36415; 80048; 85025; 87637; 93005

== ENCOUNTER 2024-11-25 14:30 | Emergency (ER) | payer MEDICARE, MEDICAID, SELFPAY ==
--- NOTE | 2024-11-25 15:12 | CTR_ITS ---
PROCEDURE INFORMATION: Exam: CTA Chest With Contrast Exam date and time: 11/25/2024 4:51 PM Age: 69 years old Clinical indication: Cough and other: Hemoptysis; Cough with hemorrhage TECHNIQUE: Imaging protocol: Computed tomographic angiography of the chest with contrast. Exam focused on the arteries. 3D rendering (Not supervised by radiologist): MIP and/or 3D reconstructed images were created by the technologist. Radiation optimization: All CT scans at this facility use at least one of these dose optimization techniques: automated exposure control; mA and/or kV adjustment per patient size (includes targeted exams where dose is matched to clinical indication); or iterative reconstruction. Contrast material: OMNIPAQUE 350; Contrast volume: 78 ml; Contrast route: INTRAVENOUS (IV); COMPARISON: CR (CHEST, ) 11/25/2024 4:06 PM RADIATION DOSE METRICS: Total DLP (mGy-cm): 547.09 FINDINGS: Pulmonary arteries: Normal. No pulmonary emboli. Aorta: Unremarkable. No aortic aneurysm. No aortic dissection. Lungs: There is a 12 mm focus of ground-glass opacities along the posterior aspect of the right upper lobe (series 4, image 22). Mucous plugging in the subsegmental bronchus supplying the anteromedial aspect of the right upper lobe (series 4, image 25). Pleural spaces: Unremarkable. No pneumothorax. No pleural effusion. Heart: Unremarkable. No cardiomegaly. No pericardial effusion. Lymph nodes: Unremarkable. No enlarged lymph nodes. Spleen: The spleen is enlarged measuring up to 13.9 cm in length.. Bones/joints: Unremarkable. No acute fracture. Soft tissues: Unremarkable. CT/CT angio chest PE protcl [id number] IMPRESSION: 1. There is a 12 mm focus of ground-glass opacities along the posterior aspect of the right upper lobe (series 4, image 22) which is nonspecific but may represent an infectious process. 2. Mucous plugging in the subsegmental bronchus supplying the anteromedial aspect of the right upper lobe (series 4, image 25). An underlying bronchus lesion can not be excluded and pulmonary consultation may be of benefit.
--- NOTE | 2024-11-25 15:13 | XRR_ITS ---
PROCEDURE INFORMATION: Exam: XR Chest Exam date and time: 11/25/2024 4:06 PM Age: 69 years old Clinical indication: Cough and dyspnea; Additional info: Dyspnea/cough TECHNIQUE: Imaging protocol: Radiologic exam of the chest. Views: 1 view. COMPARISON: No relevant prior studies available. FINDINGS: Lungs: Unremarkable. No consolidation. Pleural spaces: Unremarkable. No pleural effusion. No pneumothorax. Heart/Mediastinum: Unremarkable. No cardiomegaly. Bones/joints: Unremarkable. XR/XR chest 1V portable [id number] IMPRESSION: No acute findings.
[2024-11-25 15:20] VITALS: BP 168/84; PULSE 87; RESP 17; TEMP 36.5; O2SAT 95; BMI 52.9
[2024-11-25 16:20] LABS: Basophils # 0.1 10^3/uL (0.0-0.1); Basophils % 0.5 %; Eosinophils # 0.3 10^3/uL (0.0-0.8); Eosinophils % 2.5 %; Hematocrit 36.4 % (37-53); Lymphocytes # 1.3 10^3/uL (0.8-4.8); Lymphocytes % 12.2 %; Mean Corpuscular HGB Conc 29.7 g/dL (30-55); Mean Corpuscular Hemoglobin 24.3 pg (27-33); Monocytes # 0.8 10^3/uL (0.2-0.9); Monocytes % 7.4 %; Neutrophils # 8.47 10^3/uL (1.8-7.7); Neutrophils % 77.1 %; Nucleated Red Blood Cells % 0 %; Platelet Count 322 10^3/cmm (157-399); Red Blood Count 4.44 10^6/uL (3.85-5.65); Red Cell Distribution Width 17.6 % (12.1-15.1); White Blood Count 10.99 10^3/uL (3.29-11.43)
[2024-11-25 16:45] LABS: Alanine Aminotransferase 18 U/L (0-41); Albumin Level 3.6 g/dL (3.5-5.2); Alkaline Phosphatase 86 U/L (40-130); Aspartate Amino Transferase 16 U/L (0-40); Blood Urea Nitrogen 9 mg/dL (8-23); Calcium 10.1 mg/dL (8.5-10.5); Carbon Dioxide 24 mmol/L (22-29); Chloride 101 mmol/L (98-107); Creatinine Clr Calc Pharmacy 144.6389; Globulin 3.1 g/dL (1.3-4.6); Glomerular Filtration Rate 112.5 mL/min (90-130); Glucose 172 mg/dL (65-115); Osmolality Calculated 293 mOsm/kg (285-295); Sodium 140 mmol/L (136-145); Total Bilirubin 0.2 mg/dL (0.15-1.2); Total Protein 6.7 g/dL (6.6-8.7)
[2024-11-25] MEDS: iohexol 350 mg/mL 500 mL Btl (per mL) IV (16:54)
--- NOTE | 2024-11-25 18:25 | ECG_ITS ---
[employer] Test Date: 2024-11-25 Pat Name: Sohail Delgado Department: Room: Gender: Male Work From Home: : 1955 Requested By: Sree Santana Order Number: [id number] Reading MD: LAURA DEVI Measurements Intervals [place] Rate: 79 P: 33 [place]: 171 QRS: 3 QRSD: 90 T: 19 QT: 381 QTc: 437 Interpretive Statements SINUS RHYTHM POSSIBLE ANTERIOR MYOCARDIAL INFARCTION , PROBABLY OLD [30 ms Q WAVE IN V3/V4, OR R < 0.2 mV IN V4] Compared to ECG 11/24/2024 21:47:23 Myocardial infarct finding now present Electronically Signed On 11-25-2024 20:46:08 BUILD MANAGER by LAURA DEVI [email or web address]
[2024-11-25 21:00] LABS: Covid PCR NEGATIVE (Negative); Influenza A NEGATIVE (Negative); Influenza B NEGATIVE (Negative); Respiratory Syncytial Virus Ce NEGATIVE (Negative)
--- NOTE | 2024-11-25 22:15 | W.ED.NAVMDI ---
Documented by User: JARAD Childers 11/26/24 01:36 HPI - Nausea/Vomiting/Diarrhea General: Chief complaint: Nausea/Vomiting/Diarrhea Stated complaint: coughing up blood Time Seen by Provider: 11/25/24 21:15 Source: patient Mode of arrival: ambulatory Limitations: no limitations History of Present Illness: Patient is a 69-year-old male that presents to the emergency department with a cough and coughing up some blood. Patient states he has had some wheezing but that resolved after using his albuterol inhaler. He states he is out of his inhaler now. He reports he has been exposed to flu by his . He is also currently being treated for melanoma. He had an abscess on his back that was drained back in June and his has been packing it and allowing it to heal from the inside out. She states it started out at 15 cm and is down to about 4 cm now. Patient does report an allergy to penicillins but is unsure what that allergy is. He denies any nausea, vomiting or diarrhea. He is a diabetic. He is on Lantus and metformin with some glipizide as well. He is also on Januvia. He presents to the emergency department for further evaluation and treatment. Associated nausea: No Associated symtoms: Denies altered mental status, anxiety, chest pain (Patient denies any chest pain), dysuria, headache(s) or nausea Related Data Home Medications ?Medication ?Instructions ?Recorded ?Confirmed atorvastatin 20 mg tablet 20 mg PO QPM 08/28/24 09/28/24 fluticasone propionate 50 2 spray intranasal DAILY 08/28/24 09/28/24 mcg/actuation nasal spray,suspension gabapentin 100 mg capsule 100 mg PO QID 08/28/24 09/28/24 glipizide 10 mg tablet 10 mg PO DAILY 08/28/24 09/28/24 hydralazine 10 mg tablet 10 mg PO TID 08/28/24 09/28/24 insulin glargine 100 unit/mL (3 See Rx Instructions .Route .COMPLEX 08/28/24 09/28/24 mL) subcutaneous pen (Lantus Solostar U-100 Insulin) lisinopril 40 mg tablet 40 mg PO DAILY 08/28/24 09/28/24 metformin 1,000 mg tablet 1,000 mg PO BID 08/28/24 09/28/24 metronidazole 1 % topical gel 1 applic topical DAILY 08/28/24 09/28/24 pantoprazole 40 mg tablet,delayed 40 mg PO DAILY 08/28/24 08/28/24 release potassium chloride 20 mEq 20 meq PO DAILY 08/28/24 08/28/24 tablet,extended release(part/cryst) sitagliptin phosphate 100 mg 100 mg PO DAILY 08/28/24 08/28/24 tablet (Januvia) zolpidem 5 mg tablet 5 mg PO BEDTIME PRN Sleep 08/28/24 08/28/24 oxycodone 5 mg tablet 5 mg PO Q6H PRN Pain 09/28/24 09/28/24 Previous Rx's ?Medication ?Instructions ?Recorded meclizine 25 mg tablet 25 mg PO QID PRN dizziness #20 tabs 09/28/24 doxycycline hyclate 100 mg capsule 100 mg PO BID 10 days #20 caps 11/25/24 ipratropium 20 mcg-albuterol 100 1 puff inhalation QID #4 grams 11/25/24 mcg/actuation mist for inhalation (Combivent Respimat) Allergies Allergy/AdvReac Type Severity Reaction Status Date / Time Penicillins Allergy Unknown Verified 08/28/24 14:42 Review of Systems Const: Denies: fever(s) or body aches Eyes: Denies: eye discharge or eye redness ENMT: Denies: throat pain Card: Denies: chest pain (Patient denies any chest pain) Resp: Reports: wheezing and hemoptysis (Started last night and has been getting less since then) GI: Denies: abdominal pain, nausea, vomiting or hematemesis : Denies: flank pain or dysuria Musc: Denies: neck pain or back pain Skin/Breast: Reports: other (Healing abscess site on his back) Neuro: Denies: headache(s), numbness in extremities or weakness in extremities Psych: Denies: anxiety or depression Endo: Denies: polyuria River/Lymph: Denies: petechiae All/Imm: Denies: urticaria, throat swelling or tongue swelling PFSH ED PFSH: Medical History (Updated 11/25/24 @ 22:52 by JARAD Childers) Gastric reflux High cholesterol Type 2 diabetes mellitus Hypertension Social History (Updated 11/25/24 @ 22:36 by JARAD Childers) Smoking and tobacco/nicotine status: former use of tobacco/nicotine Quit status (tobacco/nicotine): has quit using Year quit tobacco: 2024 Physical Exam Const: COMMON NORMALS: no acute distress and patient oriented x3 EXAM LIMITATIONS: no altered mental status GENERAL APPEARANCE: cooperative; not in distress NUTRITIONAL APPEARANCE: obese ORIENTATION/CONSCIOUSNESS: Yes awake, Yes oriented to person, Yes oriented to place and Yes oriented to time; not confused HENMT: COMMON NORMALS: normocephalic, atraumatic, EAC's normal and TM's normal bilaterally HEAD & SCALP: normocephalic and atraumatic FACE & SINUS: normal facial exam EXTERNAL AUDITORY CANAL: EAC's normal TYMPANIC MEMBRANE: TM's normal bilaterally MOUTH: Normal oral and palatal mucosa present Eye: COMMON NORMALS: conjunctivae normal and no scleral icterus CONJUNCTIVA: Yes conjunctivae normal Cardio: COMMON NORMALS: regular rate and regular rhythm RATE: regular rate RHYTHM: regular rhythm GI: COMMON NORMALS: Normal to inspection, nondistended, normoactive bowel sounds present, Soft to palpation and non-tender PALPATION: Yes Soft to palpation : COMMON NORMALS: Yes no CVA tenderness BLADDER/KIDNEY EXAM: Yes no CVA tenderness Back/Pelvis: COMMON NORMALS: no CVA tenderness LUMBAR SPINE/LOWER BACK: Yes other soft tissue findings (Patient has a wound on his low back that is currently being treated) Extremity: GENERAL: Yes edema Neuro: COMMON NORMALS: patient oriented x3 SENSORIUM/ORIENTATION: Yes oriented to person, Yes oriented to place and Yes oriented to time Course ED course: I discussed the case with Dr. Osuna who agreed with the assessment and plan. He reviewed the EKG and did not see any signs of acute ischemia either. The patient denies any chest pain. He recommended doxycycline and refilling the Combivent inhaler. Patient has to follow-up with his primary care provider for further evaluation and treatment. Vital Signs: Vital signs: Vital Signs Temperature 97.7 F 11/25/24 15:20 Pulse Rate 87 11/25/24 15:20 Respiratory Rate 17 11/25/24 15:20 Blood Pressure 168/84 11/25/24 15:20 Pulse Oximetry 95 11/25/24 15:20 Oxygen Delivery Me thod Room Air 11/25/24 15:20 MDM - Nausea/Vomiting/Diarrhea Medical Decision Making Patient was advised of the exam, lab and imaging findings. Thankfully he does not have any pneumonia on the chest x-ray. There is an area in the right upper lobe of the lung on the CT scan that could be infectious. The patient denies any fever or chills. He states he has had some wheezing. He was requesting an refill of his inhaler which I felt was reasonable. He has no wheezing at the time but he states he does get wheezing from time to time. Will put the patient on some doxycycline for his lungs and we will refill his Combivent inhaler since he is out. I did recommend that he follow-up with his regular doctor for further evaluation and treatment and return to the emergency department with any worsening symptoms. The patient expressed understanding. Medical Records I reviewed the patient's medical records. Lab Data I reviewed the patient's lab results. 11/25/24 16:12 11/25/24 16:12 Radiology Impressions Chest CTA 11/25/24 15:12 IMPRESSION: 1. There is a 12 mm focus of ground-glass opacities along the posterior aspect of the right upper lobe (series 4, image 22) which is nonspecific but may represent an infectious process. 2. Mucous plugging in the subsegmental bronchus supplying the anteromedial aspect of the right upper lobe (series 4, image 25). An underlying bronchus lesion can not be excluded and pulmonary consultation may be of benefit. Chest X-Ray 11/25/24 15:13 IMPRESSION: No acute findings. Laboratory Results WBC 10.99 10^3/uL (3.29-11.43) 11/25/24 16:12 RBC 4.44 10^6/uL (3.85-5.65) 11/25/24 16:12 Hgb 10.80 g/dL (11.27-16.99) L 11/25/24 16:12 Hct 36.4 % (37-53) L 11/25/24 16:12 MCV 82.0 fl (82-101) 11/25/24 16:12 MCH 24.3 pg (27-33) L 11/25/24 16:12 MCHC 29.7 g/dL (30-55) L 11/25/24 16:12 RDW 17.6 % (12.1-15.1) H 11/25/24 16:12 Plt Count 322 10^3/cmm (157-399) 11/25/24 16:12 MPV 9.0 fL (7.4-10.4) 11/25/24 16:12 Neut % (Auto) 77.1 % 11/25/24 16:12 Lymph % (Auto) 12.2 % 11/25/24 16:12 Harper % (Auto) 7.4 % 11/25/24 16:12 Eos % (Auto) 2.5 % 11/25/24 16:12 Baso % (Auto) 0.5 % 11/25/24 16:12 Neut # (Auto) 8.47 10^3/uL (1.8-7.7) H 11/25/24 16:12 Lymph # (Auto) 1.3 10^3/uL (0.8-4.8) 11/25/24 16:12 Harper # (Auto) 0.8 10^3/uL (0.2-0.9) 11/25/24 16:12 Eos # (Auto) 0.3 10^3/uL (0.0-0.8) 11/25/24 16:12 Baso # (Auto) 0.1 10^3/uL (0.0-0.1) 11/25/24 16:12 Nucleated RBC % (auto) 0 % 11/25/24 16:12 Nucleated RBCs # 0.0 /100WBC 11/25/24 16:12 Sodium 140 mmol/L (136-145) 11/25/24 16:12 Potassium 4.0 mmol/L (3.5-5.1) 11/25/24 16:12 Chloride 101 mmol/L (98-107) 11/25/24 16:12 Carbon Dioxide 24 mmol/L (22-29) 11/25/24 16:12 Anion Gap 19.0 (5-19) 11/25/24 16:12 BUN 9 mg/dL (8-23) 11/25/24 16:12 Creatinine 0.7 mg/dL (0.7-1.2) 11/25/24 16:12 GFR Calculation 112.5 mL/min (90-130) 11/25/24 16:12 Glucose 172 mg/dL (65-115) H 11/25/24 16:12 Calculated Osmolality 293 mOsm/kg (285-295) 11/25/24 16:12 Calcium 10.1 mg/dL (8.5-10.5) 11/25/24 16:12 Total Bilirubin 0.2 mg/dL (0.15-1.2) 11/25/24 16:12 AST 16 U/L (0-40) 11/25/24 16:12 ALT 18 U/L (0-41) 11/25/24 16:12 Alkaline Phosphatase 86 U/L (40-130) 11/25/24 16:12 Total Protein 6.7 g/dL (6.6-8.7) 11/25/24 16:12 Albumin 3.6 g/dL (3.5-5.2) 11/25/24 16:12 Globulin 3.1 g/dL (1.3-4.6) 11/25/24 16:12 Coronavirus (PCR) Negative (Negative) 11/25/24 20:00 Influenza A (PCR) Negative (Negative) 11/25/24 20:00 Influenza Type B (PCR) Negative (Negative) 11/25/24 20:00 RSV (PCR) Negative (Negative) 11/25/24 20:00 All radiology interpretation(s) finalized by discharge EKG Data EKG 1: I personally reviewed and interpreted this EKG as follows: Prior EKG tracings: available for review Interpretation: Rate 79, sinus rhythm, normal axis, no significant change from his EKG in September of last year. No ST elevation, depression or other signs of acute ischemia. I did review this EKG with Dr. Osuna. Critical Care Time Critical Care Time: Critical Care Time: No Discharge Plan Discharge Patient Disposition: Home Clinical Impression: Cough with hemoptysis, History of wheezing, Infiltrate of upper lobe of right lung present on imaging study, Mucus plugging of bronchi Condition: Stable Prescriptions: New doxycycline hyclate 100 mg capsule 100 mg PO BID 10 Days Qty: 20 0RF Combivent Respimat 20-100 mcg/actuation mist 1 puff inhalation QID Qty: 4 0RF Rx Instructions: space evenly during waking hours Discontinued Combivent Respimat 20-100 mcg/actuation mist 2 puff INHALATION QID No Action hydralazine 10 mg tablet 10 mg PO TID atorvastatin 20 mg tablet 20 mg PO QPM glipizide 10 mg tablet 10 mg PO DAILY pantoprazole 40 mg tablet,delayed release (DR/EC) 40 mg PO DAILY metformin 1,000 mg tablet 1,000 mg PO BID zolpidem 5 mg tablet 5 mg PO BEDTIME PRN (Reason: Sleep) gabapentin 100 mg capsule 100 mg PO QID lisinopril 40 mg tablet 40 mg PO DAILY fluticasone propionate 50 mcg/actuation spray,suspension 2 spray INTRANASAL DAILY metronidazole 1 % gel 1 applic TOPICAL DAILY Januvia 100 mg tablet 100 mg PO DAILY insulin glargine [Lantus Solostar U-100 Insulin] 100 unit/mL (3 mL) insulin pen See Rx Instructions .ROUTE .COMPLEX Rx Instructions: INJECT 50 UNITS subcutaneously DAILY; INCREASE BY 2 UNITS EVERY TUESDAY AND TUESDAY IF PRIOR BLOOd SUGAR > 140. MAX 100 UNITS DAILY potassium chloride 20 mEq tablet,ER particles/crystals 20 meq PO DAILY oxycodone 5 mg Tablet 5 mg PO Q6H PRN (Reason: Pain) meclizine 25 mg tablet 25 mg PO QID PRN (Reason: dizziness) Qty: 20 0RF Discharge Orders: Discharge ED (Routine); Ordered 11/25/24 Ordered By: Deni Handy Referrals: OCTAVIO Peters, BURR PICKER [Primary Care Provider] - Discharge Diet: Diabetic Discharge Activity: Resume usual activity Patient Instructions: Acute Bronchitis (ED), Coughing Up Blood (Hemoptysis) (ED), Pneumonia (ED), Opioid Safety, Pain Management Activity Restrictions/Additional Instructions: Take the medications as directed. Continue your other medications as directed. Follow-up with your primary care provider for further evaluation and treatment. Follow-up with your oncologist at [place] as scheduled. Return to the emergency department with any worsening symptoms. Print Language: Icelandic Coding Level of Care Code ED Crew Lead for Chg Fwd Documented by User: Warren Osuna DO 11/26/24 01:45 HPI - Nausea/Vomiting/Diarrhea General: Chief complaint: Nausea/Vomiting/Diarrhea Stated complaint: coughing up blood Time Seen by Provider: 11/25/24 21:15 Related Data Home Medications ?Medication ?Instructions ?Recorded ?Confirmed atorvastatin 20 mg tablet 20 mg PO QPM 08/28/24 09/28/24 fluticasone propionate 50 2 spray intranasal DAILY 08/28/24 09/28/24 mcg/actuation nasal spray,suspension gabapentin 100 mg capsule 100 mg PO QID 08/28/24 09/28/24 glipizide 10 mg tablet 10 mg PO DAILY 08/28/24 09/28/24 hydralazine 10 mg tablet 10 mg PO TID 08/28/24 09/28/24 insulin glargine 100 unit/mL (3 See Rx Instructions .Route .COMPLEX 08/28/24 09/28/24 mL) subcutaneous pen (Lantus Solostar U-100 Insulin) lisinopril 40 mg tablet 40 mg PO DAILY 08/28/24 09/28/24 metformin 1,000 mg tablet 1,000 mg PO BID 08/28/24 09/28/24 metronidazole 1 % topical gel 1 applic topical DAILY 08/28/24 09/28/24 pantoprazole 40 mg tablet,delayed 40 mg PO DAILY 08/28/24 08/28/24 release potassium chloride 20 mEq 20 meq PO DAILY 08/28/24 08/28/24 tablet,extended release(part/cryst) sitagliptin phosphate 100 mg 100 mg PO DAILY 08/28/24 08/28/24 tablet (Januvia) zolpidem 5 mg tablet 5 mg PO BEDTIME PRN Sleep 08/28/24 08/28/24 oxycodone 5 mg tablet 5 mg PO Q6H PRN Pain 09/28/24 09/28/24 Previous Rx's ?Medication ?Instructions ?Recorded meclizine 25 mg tablet 25 mg PO QID PRN dizziness #20 tabs 09/28/24 doxycycline hyclate 100 mg capsule 100 mg PO BID 10 days #20 caps 11/25/24 ipratropium 20 mcg-albuterol 100 1 puff inhalation QID #4 grams 11/25/24 mcg/actuation mist for inhalation (Combivent Respimat) Allergies Allergy/AdvReac Type Severity Reaction Status Date / Time Penicillins Allergy Unknown Verified 08/28/24 14:42 [facility] ED [facility]: Medical History (Updated 11/25/24 @ 22:52 by JARAD Childers) Gastric reflux High cholesterol Type 2 diabetes mellitus Hypertension Social History (Updated 11/25/24 @ 22:36 by JARAD Childers) Smoking and tobacco/nicotine status: former use of tobacco/nicotine Quit status (tobacco/nicotine): has quit using Year quit tobacco: 2024 Course Vital Signs: Vital signs: Vital Signs Temperature 97.7 F 11/25/24 15:20 Pulse Rate 87 11/25/24 15:20 Respiratory Rate 17 11/25/24 15:20 Blood Pressure 168/84 11/25/24 15:20 Pulse Oximetry 95 11/25/24 15:20 Oxygen Delivery Me thod Room Air 11/25/24 15:20 MDM - Nausea/Vomiting/Diarrhea Medical Decision Making Patient was advised of the exam, lab and imaging findings. Thankfully he does not have any pneumonia on the chest x-ray. There is an area in the right upper lobe of the lung on the CT scan that could be infectious. The patient denies any fever or chills. He states he has had some wheezing. He was requesting an refill of his inhaler which I felt was reasonable. He has no wheezing at the time but he states he does get wheezing from time to time. Will put the patient on some doxycycline for his lungs and we will refill his Combivent inhaler since he is out. I did recommend that he follow-up with his regular doctor for further evaluation and treatment and return to the emergency department with any worsening symptoms. The patient expressed understanding. This patient was originally seen by Mr. Ole PA-C.? I agree with his history, evaluation, and treatment. Lab Data 11/25/24 16:12 11/25/24 16:12 Radiology Impressions Chest CTA 11/25/24 15:12 IMPRESSION: 1. There is a 12 mm focus of ground-glass opacities along the posterior aspect of the right upper lobe (series 4, image 22) which is nonspecific but may represent an infectious process. 2. Mucous plugging in the subsegmental bronchus supplying the anteromedial aspect of the right upper lobe (series 4, image 25). An underlying bronchus lesion can not be excluded and pulmonary consultation may be of benefit. Chest X-Ray 11/25/24 15:13 IMPRESSION: No acute findings. Laboratory Results WBC 10.99 10^3/uL (3.29-11.43) 11/25/24 16:12 RBC 4.44 10^6/uL (3.85-5.65) 11/25/24 16:12 Hgb 10.80 g/dL (11.27-16.99) L 11/25/24 16:12 Hct 36.4 % (37-53) L 11/25/24 16:12 MCV 82.0 fl (82-101) 11/25/24 16:12 MCH 24.3 pg (27-33) L 11/25/24 16:12 MCHC 29.7 g/dL (30-55) L 11/25/24 16:12 RDW 17.6 % (12.1-15.1) H 11/25/24 16:12 Plt Count 322 10^3/cmm (157-399) 11/25/24 16:12 MPV 9.0 fL (7.4-10.4) 11/25/24 16:12 Neut % (Auto) 77.1 % 11/25/24 16:12 Lymph % (Auto) 12.2 % 11/25/24 16:12 Harper % (Auto) 7.4 % 11/25/24 16:12 Eos % (Auto) 2.5 % 11/25/24 16:12 Baso % (Auto) 0.5 % 11/25/24 16:12 Neut # (Auto) 8.47 10^3/uL (1.8-7.7) H 11/25/24 16:12 Lymph # (Auto) 1.3 10^3/uL (0.8-4.8) 11/25/24 16:12 Harper # (Auto) 0.8 10^3/uL (0.2-0.9) 11/25/24 16:12 Eos # (Auto) 0.3 10^3/uL (0.0-0.8) 11/25/24 16:12 Baso # (Auto) 0.1 10^3/uL (0.0-0.1) 11/25/24 16:12 Nucleated RBC % (auto) 0 % 11/25/24 16:12 Nucleated RBCs # 0.0 /100WBC 11/25/24 16:12 Sodium 140 mmol/L (136-145) 11/25/24 16:12 Potassium 4.0 mmol/L (3.5-5.1) 11/25/24 16:12 Chloride 101 mmol/L (98-107) 11/25/24 16:12 Carbon Dioxide 24 mmol/L (22-29) 11/25/24 16:12 Anion Gap 19.0 (5-19) 11/25/24 16:12 BUN 9 mg/dL (8-23) 11/25/24 16:12 Creatinine 0.7 mg/dL (0.7-1.2) 11/25/24 16:12 GFR Calculation 112.5 mL/min (90-130) 11/25/24 16:12 Glucose 172 mg/dL (65-115) H 11/25/24 16:12 Calculated Osmolality 293 mOsm/kg (285-295) 11/25/24 16:12 Calcium 10.1 mg/dL (8.5-10.5) 11/25/24 16:12 Total Bilirubin 0.2 mg/dL (0.15-1.2) 11/25/24 16:12 AST 16 U/L (0-40) 11/25/24 16:12 ALT 18 U/L (0-41) 11/25/24 16:12 Alkaline Phosphatase 86 U/L (40-130) 11/25/24 16:12 Total Protein 6.7 g/dL (6.6-8.7) 11/25/24 16:12 Albumin 3.6 g/dL (3.5-5.2) 11/25/24 16:12 Globulin 3.1 g/dL (1.3-4.6) 11/25/24 16:12 Coronavirus (PCR) Negative (Negative) 11/25/24 20:00 Influenza A (PCR) Negative (Negative) 11/25/24 20:00 Influenza Type B (PCR) Negative (Negative) 11/25/24 20:00 RSV (PCR) Negative (Negative) 11/25/24 20:00 Discharge Plan Discharge Patient Disposition: Home Clinical Impression: Cough with hemoptysis, History of wheezing, Infiltrate of upper lobe of right lung present on imaging study, Mucus plugging of bronchi Condition: Stable Prescriptions: New doxycycline hyclate 100 mg capsule 100 mg PO BID 10 Days Qty: 20 0RF Combivent Respimat 20-100 mcg/actuation mist 1 puff inhalation QID Qty: 4 0RF Rx Instructions: space evenly during waking hours Discontinued Combivent Respimat 20-100 mcg/actuation mist 2 puff INHALATION QID No Action hydralazine 10 mg tablet 10 mg PO TID atorvastatin 20 mg tablet 20 mg PO QPM glipizide 10 mg tablet 10 mg PO DAILY pantoprazole 40 mg tablet,delayed release (DR/EC) 40 mg PO DAILY metformin 1,000 mg tablet 1,000 mg PO BID zolpidem 5 mg tablet 5 mg PO BEDTIME PRN (Reason: Sleep) gabapentin 100 mg capsule 100 mg PO QID lisinopril 40 mg tablet 40 mg PO DAILY fluticasone propionate 50 mcg/actuation spray,suspension 2 spray INTRANASAL DAILY metronidazole 1 % gel 1 applic TOPICAL DAILY Januvia 100 mg tablet 100 mg PO DAILY insulin glargine [Lantus Solostar U-100 Insulin] 100 unit/mL (3 mL) insulin pen See Rx Instructions .ROUTE .COMPLEX Rx Instructions: INJECT 50 UNITS subcutaneously DAILY; INCREASE BY 2 UNITS EVERY TUESDAY AND TUESDAY IF PRIOR BLOOd SUGAR > 140. MAX 100 UNITS DAILY potassium chloride 20 mEq tablet,ER particles/crystals 20 meq PO DAILY oxycodone 5 mg Tablet 5 mg PO Q6H PRN (Reason: Pain) meclizine 25 mg tablet 25 mg PO QID PRN (Reason: dizziness) Qty: 20 0RF Discharge Orders: Discharge ED (Routine); Ordered 11/25/24 Ordered By: Deni Handy Referrals: OCTAVIO Peters, BURR PICKER [Primary Care Provider] - Discharge Diet: Diabetic Discharge Activity: Resume usual activity Patient Instructions: Acute Bronchitis (ED), Coughing Up Blood (Hemoptysis) (ED), Pneumonia (ED), Opioid Safety, Pain Management Activity Restrictions/Additional Instructions: Take the medications as directed. Continue your other medications as directed. Follow-up with your primary care provider for further evaluation and treatment. Follow-up with your oncologist at [place] as scheduled. Return to the emergency department with any worsening symptoms. Print Language: Icelandic Coding Level of Care Code ED Crew Lead for Justine Hilliard
== END 2024-11-25 23:42 | disposition home or self-care (01) ==
PROVIDERS: Family Medicine; Emergency Provider Physician Assistant; PCP Nurse Practitioner Family
DX: R04.2 Hemoptysis (principal); R91.8 Other nonspecific abnormal finding of lung field; J98.09 Other diseases of bronchus, not elsewhere classified; Z79.84 Long term (current) use of oral hypoglycemic drugs; Z79.4 Long term (current) use of insulin; Z11.52 Encounter for screening for COVID-19; Z87.891 Personal history of nicotine dependence; E11.9 Type 2 diabetes mellitus without complications; I10 Essential (primary) hypertension
CPT/HCPCS: 71045; 71275; 80053; 85025; 87637; 93005; 99285

== ENCOUNTER 2025-02-05 11:30 | Inpatient (IN) | payer MEDICARE, MEDICAID, SELFPAY ==
[2025-02-05] VITALS (13 sets, daily range): BP systolic 142–193; BP diastolic 66–96; PULSE 59–75; RESP 16–18; TEMP 36.5–36.8; O2SAT 92–100; BMI 48.8
--- NOTE | 2025-02-05 11:30 | ECG_ITS ---
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 Measurements Intervals [place] Rate: 69 P: -27 WI: 158 QRS: 14 QRSD: 93 T: -9 QT: 367 QTc: 394 Interpretive Statements SINUS RHYTHM LOW QRS VOLTAGE IN PRECORDIAL LEADS [QRS DEFLECTION < 1.0 mV IN CHEST LEADS] Compared to ECG 11/25/2024 18:25:40 Low QRS voltage now present Myocardial infarct finding no longer present Electronically Signed On 02-06-2025 08:46:44 CDT by Serge Cruz M.D. [email or web address]
--- NOTE | 2025-02-05 11:56 | CT_ITS ---
WS: [id number] CT CHEST, ABDOMEN, AND PELVIS TECHNIQUE: Contrast-enhanced CT of the chest, abdomen, and pelvis with coronal and sagittal reformatted images. CLINICAL INFORMATION: fall, fungating lower back wound COMPARISON: CT pelvis 2023 DLP: 2256.[address] scans at [facility] use at least one of these dose optimization techniques: automated exposure control; mA and/or kV adjustment per patient size (includes targeted exams where dose is matched to clinical indication); or iterative reconstruction. FINDINGS: Limited examination due to beam hardening artifact. Patient combative and refused to raise arms above head. Beam-hardening artifact due to body habitus. CT CHEST: Normal caliber thoracic aorta. Aortic calcification. Dense coronary calcification. No mediastinal or hilar lymphadenopathy. No axillary lymphadenopathy. Subpleural nodular opacity RIGHT upper lobe measuring 12 mm is similar to 11/25/2024. Metastatic disease not excluded. CT ABDOMEN AND PELVIS: Large cavitary mass in the low back similar to the prior CT pelvis extending down to the lumbar spinous processes. Large cavitary mass measures approximately 10.6 x 15.0 x 10.8 cm. 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 No definite bony destruction visualized in the posterior elements considering artifact. Liver and spleen appear grossly normal although not well evaluated due to artifact. Normal GE junction. Fatty atrophy of the pancreas. Small LEFT adrenal nodule likely adenoma. No hydronephrosis in either kidney. Normal caliber abdominal aorta. Aortic calcification. Tiny fat-containing umbilical hernia. Normal visualized sigmoid colon. No evidence of high-grade small or large bowel obstruction. No free fluid in the abdomen or pelvis. No other acute findings in the abdomen or pelvis considering limitations CT/CT chest abdpel w/*[id number] IMPRESSION: Exam is limited due to body habitus and exam performed with arms do wn resulting in beam hardening artifact. 1. Subpleural 12 mm nodule in the RIGHT upper lobe similar to previous. Metast atic disease not excluded. 2. Cavitating lower back mass described above suspicious for neoplasm. This ex tends down to the posterior spinous processes in the lumbar spine. This was par tially evaluated on the prior pelvis CT 08/28/2024 3. No other acute findings considering significant limitations.
--- NOTE | 2025-02-05 11:56 | XR_ITS ---
WS: [id number] Exam: XR chest 1V portable [id number] Date/Time of Exam: 02/05/2025 11:56 AM Reason For Exam: fall Comparison 11/25/2024. The lungs are fully expanded and clear. Cardiomediastinal silhouette is unremarkable. Bony structures are intact. No pleural effusion. XR/XR chest 1V portable [id number] IMPRESSION: 1. No acute cardiopulmonary process.
--- NOTE | 2025-02-05 11:56 | CT_ITS ---
WS: [id number] CT CERVICAL TRAUMA TECHNIQUE: Noncontrast CT of the cervical spine with coronal and sagittal reformatted images. CLINICAL INFORMATION: fall COMPARISON: None. DLP: 1786.[address] scans at [facility] use at least one of these dose optimization techniques: automated exposure control; mA and/or kV adjustment per patient size (includes targeted exams where dose is matched to clinical indication); or iterative reconstruction. FINDINGS: Straightening of the normal cervical lordosis. Mild cervical curve. Moderate spondylitic changes. Normal craniocervical junction. Normal C1-C2 articulation. Dens is normal in appearance. Normal occipital condyles. No high-grade spinal canal narrowing. Normal C1 ring. No evidence of acute fracture or dislocation. Normal prevertebral soft tissues. CT/CT cervical spin wo con* [id number] IMPRESSION: No evidence of acute fracture or dislocation.
--- NOTE | 2025-02-05 11:56 | CT_ITS ---
WS: [id number] CT HEAD TECHNIQUE: Noncontrast CT of the head obtained from the skullbase to the vertex. CLINICAL INFORMATION: fall, confusion COMPARISON: 09/28/2024 DLP: 1786.[address] scans at [facility] use at least one of these dose optimization techniques: automated exposure control; mA and/or kV adjustment per patient size (includes targeted exams where dose is matched to clinical indication); or iterative reconstruction. FINDINGS: No evidence of intracranial hemorrhage or mass effect. Ventricular system and basal cisterns are patent. Advanced small vessel changes with moderate parenchymal volume loss. No extra-axial fluid collections. No evidence of mass or mass effect. Vascular calcification. Chronic infarcts LEFT cerebellum. C hronic lacunar infarct LEFT campbell radiata. Polyploid mucosal thickening in the paranasal sinuses. Mastoid air cells are well aerated. CT/CT head wo con* [id number] IMPRESSION: 1. No evidence of intracranial hemorrhage or mass effect. 2. Advanced small vessel changes. Moderate parenchymal volume loss. 3. Chronic lacunar infarct LEFT campbell radiata. 4. Vascular calcification. 5. No acute intracranial findings.
[2025-02-05 12:21] LABS: Bilirubin Urine Negative (Negative); Blood Urine 1+ (Negative); Glucose Urine UA Negative (Normal); Ketones Urine 1+ (Negative); Leukocyte Esterase Urine Trace (Negative); Nitrate Urine Positive (Negative); Protein Urine 1+ (Negative); Specific Gravity, Urine 1.021 (1.005-1.030); Urine Appearance Clear (CLEAR); Urine Color Yellow (Yellow); pH Urine 5.5 (5-7)
[2025-02-05 12:26] LABS: Add Urine Microscopic? YES; Bacteria Urine 4+ /hpf; Hyaline Casts Urine 2.46 /lpf; RBC Urine 0-2 /hpf (0-2); Squamous Epithelial Cell Urine 0-5 /hpf (0-5); WBC Urine 21-50 /hpf (0-5)
[2025-02-05] MEDS: iohexol 350 mg/mL 500 mL Btl (per mL) IV (12:26)
[2025-02-05 12:51] LABS: UA Slide Review UA Slide Review Perf
[2025-02-05] MEDS: sodium chloride 0.9% 1,000 ML 999 ML IV (13:06)
[2025-02-05] MEDS: VANCOMYCIN ADD-Vantage 1,000 MG in 0.9% NaCl ADD-Vantage 250 ML 250 MG IV (13:07)
[2025-02-05] MEDS: cefTRIAXone 1,000 mg SDV 1000 MG IVP (13:11)
[2025-02-05 13:16] LABS: Basophils # 0.1 10^3/uL (0.0-0.1); Basophils % 0.3 %; Eosinophils # 0.2 10^3/uL (0.0-0.8); Hematocrit 35.8 % (37-53); Lymphocytes % 5.9 %; Mean Corpuscular HGB Conc 30.4 g/dL (30-55); Mean Corpuscular Hemoglobin 24.4 pg (27-33); Mean Corpuscular Volume 80.3 fl (82-101); Mean Platelet Volume 9.8 fL (7.4-10.4); Monocytes # 1.1 10^3/uL (0.2-0.9); Monocytes % 6.7 %; Neutrophils # 14.29 10^3/uL (1.8-7.7); Neutrophils % 85.4 %; Nucleated Red Blood Cells % 0 %; Platelet Count 399 10^3/cmm (157-399); Red Blood Count 4.46 10^6/uL (3.85-5.65); Red Cell Distribution Width 15.2 % (12.1-15.1); White Blood Count 16.75 10^3/uL (3.29-11.43)
[2025-02-05 13:32] LABS: INR 1.15 (0.8-1.2)
[2025-02-05 13:56] LABS: NT Pro B Type Natriuretic Pept 341 pg/mL (0-125); Procalcitonin 0.12 ng/mL (0-0.5)
[2025-02-05 14:07] LABS: Alanine Aminotransferase 24 U/L (0-41); Albumin Level 3.2 g/dL (3.5-5.2); Alkaline Phosphatase 76 U/L (40-130); Anion Gap 15.8 (5-19); Aspartate Amino Transferase 40 U/L (0-40); Blood Urea Nitrogen 8 mg/dL (8-23); C Reactive Protein 81.5 mg/L (0.0-4.9); Calcium 13.5 mg/dL (8.5-10.5); Carbon Dioxide 23 mmol/L (22-29); Chloride 100 mmol/L (98-107); Creatinine Clr Calc Pharmacy 137.7404; Globulin 3.5 g/dL (1.3-4.6); Glomerular Filtration Rate 112.5 mL/min (90-130); Glucose 162 mg/dL (65-115); Magnesium 1.4 mg/dL (1.7-2.3); Osmolality Calculated 282 mOsm/kg (285-295); Potassium 3.8 mmol/L (3.5-5.1); Sodium 135 mmol/L (136-145); Total Bilirubin 0.5 mg/dL (0.15-1.2); Total Protein 6.7 g/dL (6.6-8.7)
[2025-02-05 14:17] LABS: Alcohol Level < 10 mg/dL (0-10)
--- NOTE | 2025-02-05 14:39 | PC.NURSE ---
pt removed c-collar, pt has removed most of vs equipment and at times yelling out. Pt states that pt may need something to calm down d/t increased agitation.
--- NOTE | 2025-02-05 14:57 | W.ED.FALL ---
HPI - Fall General: Chief Complaint: Fall Stated Complaint: Gen Weakness, Fall Time Seen by Provider: 02/05/25 11:33 History of Present Illness: 69-year-old male with past medical history of melanoma to his lower back lesion that he gets radiation treatment at [facility] for. He is brought in by EMS for generalized weakness confusion since last night. He had a fall yesterday for which he was seen in the [facility] emergency room in [place] and evaluated, he also had his radiation treatment yesterday. It took a while to come back and they were able to call return around midnight tonight. found him on the floor he appears to be weak again and has been falling and is confused. Patient is awake and alert poor historian comfortable appearing But is confused. He denies headache neck or back pain other than his chronic fungating lesion. He denies any abdominal pain chest pain or cough. Associated symptoms-after fall: Reports confusion and difficulty walking; Denies abdominal pain or chest pain Related Data Home Medications ?Medication ?Instructions ?Recorded ?Confirmed atorvastatin 20 mg tablet 20 mg PO QPM 08/28/24 02/05/25 fluticasone propionate 50 2 spray intranasal DAILY 08/28/24 02/05/25 mcg/actuation nasal spray,suspension gabapentin 100 mg capsule 100 mg PO QID 08/28/24 02/05/25 glipizide 10 mg tablet 10 mg PO DAILY 08/28/24 02/05/25 hydralazine 10 mg tablet 10 mg PO TID 08/28/24 02/05/25 insulin glargine 100 unit/mL (3 See Rx Instructions .Route .COMPLEX 08/28/24 02/05/25 mL) subcutaneous pen (Lantus Solostar U-100 Insulin) lisinopril 40 mg tablet 40 mg PO DAILY 08/28/24 02/05/25 metformin 1,000 mg tablet 1,000 mg PO BID 08/28/24 02/05/25 sitagliptin phosphate 100 mg 100 mg PO DAILY 08/28/24 02/05/25 tablet (Januvia) amitriptyline 25 mg tablet 25 mg PO QPM 02/05/25 02/05/25 morphine 30 mg tablet,extended 30 mg PO BID 02/05/25 02/05/25 release oxycodone 10 mg tablet 10 mg PO QID 02/05/25 02/05/25 Previous Rx's ?Medication ?Instructions ?Recorded ipratropium 20 mcg-albuterol 100 1 puff inhalation QID #4 grams 11/25/24 mcg/actuation mist for inhalation (Combivent Respimat) Allergies Allergy/AdvReac Type Severity Reaction Status Date / Time Penicillins Allergy Unknown Verified 08/28/24 14:42 Review of Systems Const: Reports: malaise; Denies: fever(s) Eyes: Denies: change in vision ENMT: Denies: throat pain Card: Denies: chest pain, palpitations or irregular heart rhythm Resp: Denies: dyspnea or productive cough GI: Denies: abdominal pain, nausea or vomiting : Denies: flank pain Musc: Reports: back pain; Denies: extremity pain or extremity swelling Skin/Breast: Denies: rash Neuro: Reports: difficulty walking and confusion [facility] ED PFSH: Medical History (Updated 02/05/25 @ 15:06 by Norma Krishnamurthy MD) Gastric reflux High cholesterol Type 2 diabetes mellitus Hypertension Social History (Updated 11/25/24 @ 22:36 by JARAD Childers) Smoking and tobacco/nicotine status: former use of tobacco/nicotine Quit status (tobacco/nicotine): has quit using Year quit tobacco: 2024 Physical Exam Const: COMMON NORMALS: no acute distress and alert EXAM LIMITATIONS: altered mental status GENERAL APPEARANCE: cooperative HENMT: COMMON NORMALS: normocephalic and atraumatic (Patient has some abrasions to the face and dried crusted blood but no obvio) HEAD & SCALP: normocephalic and atraumatic (Patient has some abrasions to the face and dried crusted blood but no obvio) Eye: COMMON NORMALS: Equal, round and reactive pupils present, EOMs intact bilaterally and conjunctivae normal CONJUNCTIVA: Yes conjunctivae normal PUPIL: Yes Equal, round and reactive pupils present Neck/C-Spine: COMMON NORMALS: supple and no JVD CERVICAL SPINE: Yes collar present Chest: COMMONS NORMALS: normal palpation of entire chest wall Resp: COMMON NORMALS: normal respiratory effort and clear to auscultation bilaterally AUSCULTATION: clear to auscultation bilaterally, no crackles, no rales and no rhonchi Cardio: COMMON NORMALS: no JVD, regular rate and regular rhythm RATE: regular rate RHYTHM: regular rhythm GI: COMMON NORMALS: Normal to inspection, nondistended, normoactive bowel sounds present, Soft to palpation and non-tender PALPATION: Yes Soft to palpation : COMMON NORMALS: Yes no CVA tenderness (Fungating lesion towards the lower back present with a dressing intact) BLADDER/KIDNEY EXAM: Yes no CVA tenderness (Fungating lesion towards the lower back present with a dressing intact) Back/Pelvis: COMMON NORMALS: no CVA tenderness (Fungating lesion towards the lower back present with a dressing intact) Extremity: NARRATIVE EXTREMITY EXAM: Moving all extremities spontaneously has good strength and that is symmetric bilaterally, sensory is intact, Neuro: COMMON NORMALS: moves all extremities, no focal motor deficits and no sensory deficits noted SENSORIUM/ORIENTATION: Yes alert OTHER: Oriented to place and name but otherwise confused Course Vital Signs: Vital signs: Vital Signs Temperature 97.7 F 02/05/25 11:38 Pulse Rate 69 02/05/25 13:45 Respiratory Rate 18 02/05/25 11:38 Blood Pressure 193/66 02/05/25 13:30 Pulse Oximetry 92 02/05/25 13:45 Oxygen Delivery Me thod Room Air 02/05/25 13:45 MDM - Fall Medical Decision Making Workup remarkable for fungating lesion leukocytosis and UA that is nitrite positive consistent with acute UTI which is likely the cause of the patient's confusion from delirium and generalized weakness and frequent falls. Otherwise no acute traumatic pathology. Lactic is 2.0. Plan for inpatient admission and further treatment. Case discussed with Dr. Haskins who will admit the patient Lab Data 02/05/25 13:06 02/05/25 13:06 Radiology Impressions Cervical Spine CT 02/05/25 11:56 IMPRESSION: No evidence of acute fracture or dislocation. Chest X-Ray 02/05/25 11:56 IMPRESSION: 1. No acute cardiopulmonary process. Chest/Abdomen/Pelvis CT 02/05/25 11:56 IMPRESSION: Exam is limited due to body habitus and exam performed with arms down resulting in beam hardening artifact. 1. Subpleural 12 mm nodule in the RIGHT upper lobe similar to previous. Metastatic disease not excluded. 2. Cavitating lower back mass described above suspicious for neoplasm. This extends down to the posterior spinous processes in the lumbar spine. This was partially evaluated on the prior pelvis CT 08/28/2024 3. No other acute findings considering significant limitations. Head CT 02/05/25 11:56 IMPRESSION: 1. No evidence of intracranial hemorrhage or mass effect. 2. Advanced small vessel changes. Moderate parenchymal volume loss. 3. Chronic lacunar infarct LEFT campbell radiata. 4. Vascular calcification. 5. No acute intracranial findings. Laboratory Results WBC 16.75 10^3/uL (3.29-11.43) H 02/05/25 13:06 RBC 4.46 10^6/uL (3.85-5.65) 02/05/25 13:06 Hgb 10.90 g/dL (11.27-16.99) L 02/05/25 13:06 Hct 35.8 % (37-53) L 02/05/25 13:06 MCV 80.3 fl (82-101) L 02/05/25 13:06 MCH 24.4 pg (27-33) L 02/05/25 13:06 MCHC 30.4 g/dL (30-55) 02/05/25 13:06 RDW 15.2 % (12.1-15.1) H 02/05/25 13:06 Plt Count 399 10^3/cmm (157-399) 02/05/25 13:06 MPV 9.8 fL (7.4-10.4) 02/05/25 13:06 Neut % (Auto) 85.4 % 02/05/25 13:06 Lymph % (Auto) 5.9 % 02/05/25 13:06 Whiteside % (Auto) 6.7 % 02/05/25 13:06 Eos % (Auto) 1.0 % 02/05/25 13:06 Baso % (Auto) 0.3 % 02/05/25 13:06 Neut # (Auto) 14.29 10^3/uL (1.8-7.7) H 02/05/25 13:06 Lymph # (Auto) 1.0 10^3/uL (0.8-4.8) 02/05/25 13:06 Whiteside # (Auto) 1.1 10^3/uL (0.2-0.9) H 02/05/25 13:06 Eos # (Auto) 0.2 10^3/uL (0.0-0.8) 02/05/25 13:06 Baso # (Auto) 0.1 10^3/uL (0.0-0.1) 02/05/25 13:06 Nucleated RBC % (auto) 0 % 02/05/25 13:06 Nucleated RBCs # 0.0 /100WBC 02/05/25 13:06 PT 15.50 SECONDS (12.1-14.9) H 02/05/25 13:06 INR 1.15 (0.8-1.2) 02/05/25 13:06 APTT 25.0 SECONDS (23.9-36.7) 02/05/25 13:06 Sodium 135 mmol/L (136-145) L 02/05/25 13:06 Potassium 3.8 mmol/L (3.5-5.1) 02/05/25 13:06 Chloride 100 mmol/L (98-107) 02/05/25 13:06 Carbon Dioxide 23 mmol/L (22-29) 02/05/25 13:06 Anion Gap 15.8 (5-19) 02/05/25 13:06 BUN 8 mg/dL (8-23) 02/05/25 13:06 Creatinine 0.7 mg/dL (0.7-1.2) 02/05/25 13:06 GFR Calculation 112.5 mL/min (90-130) 02/05/25 13:06 Glucose 162 mg/dL (65-115) H 02/05/25 13:06 Calculated Osmolality 282 mOsm/kg (285-295) L 02/05/25 13:06 Lactic Acid 2.0 mmol/L (0.5-2.2) 02/05/25 13:06 Calcium 13.5 mg/dL (8.5-10.5) H 02/05/25 13:06 Magnesium 1.4 mg/dL (1.7-2.3) L 02/05/25 13:06 Total Bilirubin 0.5 mg/dL (0.15-1.2) 02/05/25 13:06 AST 40 U/L (0-40) 02/05/25 13:06 ALT 24 U/L (0-41) 02/05/25 13:06 Alkaline Phosphatase 76 U/L (40-130) 02/05/25 13:06 C-Reactive Protein 81.5 mg/L (0.0-4.9) H 02/05/25 13:06 NT-Pro-B Natriuret Pep 341 pg/mL (0-125) H 02/05/25 13:06 Total Protein 6.7 g/dL (6.6-8.7) 02/05/25 13:06 Albumin 3.2 g/dL (3.5-5.2) L 02/05/25 13:06 Globulin 3.5 g/dL (1.3-4.6) 02/05/25 13:06 Procalcitonin 0.12 ng/mL (0-0.5) 02/05/25 13:06 Urine Color Yellow (Yellow) 02/05/25 12:09 Urine Appearance Clear (CLEAR) 02/05/25 12:09 Urine pH 5.5 (5-7) 02/05/25 12:09 Ur Specific Sunshine 1.021 (1.005-1.030) 02/05/25 12:09 Urine Protein 1+ (Negative) A 02/05/25 12:09 Urine Glucose (UA) Negative (Normal) 02/05/25 12:09 Urine Ketones 1+ (Negative) H 02/05/25 12:09 Urine Blood 1+ (Negative) A 02/05/25 12:09 Urine Nitrate Positive (Negative) A 02/05/25 12:09 Urine Bilirubin Negative (Negative) 02/05/25 12:09 Urine Urobilinogen 1.0 mg/dL (Negative) 02/05/25 12:09 Ur Leukocyte Esterase Trace (Negative) A 02/05/25 12:09 Urine RBC 0-2 /hpf (0-2) 02/05/25 12:09 Urine WBC 21-50 /hpf (0-5) H 02/05/25 12:09 Ur Squamous Epith Cells 0-5 /hpf (0-5) 02/05/25 12:09 Amorphous Sediment Not Reportable 02/05/25 12:09 Urine Bacteria 4+ /hpf (NONE) H 02/05/25 12:09 Hyaline Casts 2.46 /lpf 02/05/25 12:09 Ethyl Alcohol < 10 mg/dL (0-10) 02/05/25 13:06 No radiology studies performed this visit Discharge Plan Discharge Patient Disposition: Admitted As Inpatient Clinical Impression: Acute lower UTI, Acute confusion Condition: Stable Prescriptions: No Action hydralazine 10 mg tablet 10 mg PO TID atorvastatin 20 mg tablet 20 mg PO QPM glipizide 10 mg tablet 10 mg PO DAILY metformin 1,000 mg tablet 1,000 mg PO BID gabapentin 100 mg capsule 100 mg PO QID lisinopril 40 mg tablet 40 mg PO DAILY fluticasone propionate 50 mcg/actuation spray,suspension 2 spray INTRANASAL DAILY Januvia 100 mg tablet 100 mg PO DAILY insulin glargine [Lantus Solostar U-100 Insulin] 100 unit/mL (3 mL) insulin pen See Rx Instructions .ROUTE .COMPLEX Rx Instructions: INJECT 50 UNITS subcutaneously DAILY; INCREASE BY 2 UNITS EVERY TUESDAY AND TUESDAY IF PRIOR BLOOd SUGAR > 140. MAX 100 UNITS DAILY morphine 30 mg tablet extended release 30 mg PO BID amitriptyline 25 mg tablet 25 mg PO QPM oxycodone 10 mg tablet 10 mg PO QID Combivent Respimat 20-100 mcg/actuation mist 1 puff inhalation QID Qty: 4 0RF Rx Instructions: space evenly during waking hours Referrals: OCTAVIO Peters, [employer] [Primary Care Provider] - Print Language: Guamanian Coding Level of Care Code ED Sole Buffer for Justine Hilliard
--- NOTE | 2025-02-05 15:03 | PM.HP ---
Providers/Chief Complaint Primary Care Provider: ALISSA Betts Chief Complaint: Gen Weakness, Fall History of Present Illness Sohail Delgado is a 69 year old male with a past medical history of insulin-dependent type 2 diabetes, hypertension, hyperlipidemia, melanoma/fungating mass over the lower back, currently follows at [facility], recently had radiation therapy, who presents [facility] due to altered mental status. Currently patient is alert to person, not to place, not to time, does not follow commands, ER provider has provided most information, ER provider advises me that patient recently had radiation therapy yesterday to his fungating mass/melanoma in the lower back, he has been confused since then, he had a fall, he has been weak, which prompted the ER visit today. is not at bedside for history taking, patient was found to have a UTI, evidence of sepsis, hospitalist team was called for admission. Spoke to , patient has had 2 significant falls, one yesterday before getting radiation therapy in 1 today, he has been weak and fatigued, he has had chemo in the last month, he was also confused a bit yesterday she tells me Review of Systems General: Reports: ROS unobtainable due to mental status Medications/Allergies Home Medications ?Medication ?Instructions ?Recorded ?Confirmed ?Last Taken ?Type atorvastatin 20 mg tablet 20 mg PO QPM 08/28/24 02/05/25 02/04/25 History fluticasone propionate 50 2 spray intranasal DAILY 08/28/24 02/05/25 Unknown History mcg/actuation nasal spray,suspension gabapentin 100 mg capsule 100 mg PO QID 08/28/24 02/05/25 02/05/25 History glipizide 10 mg tablet 10 mg PO DAILY 08/28/24 02/05/25 02/05/25 History hydralazine 10 mg tablet 10 mg PO TID 08/28/24 02/05/25 09/28/24 History insulin glargine 100 unit/mL (3 See Rx Instructions .Route .COMPLEX 08/28/24 02/05/25 02/05/25 History mL) subcutaneous pen (Lantus Solostar U-100 Insulin) lisinopril 40 mg tablet 40 mg PO DAILY 08/28/24 02/05/25 02/05/25 History metformin 1,000 mg tablet 1,000 mg PO BID 08/28/24 02/05/25 02/05/25 History sitagliptin phosphate 100 mg 100 mg PO DAILY 08/28/24 02/05/25 02/05/25 History tablet (Januvia) ipratropium 20 mcg-albuterol 100 1 puff inhalation QID #4 grams 11/25/24 02/05/25 02/05/25 Rx mcg/actuation mist for inhalation (Combivent Respimat) amitriptyline 25 mg tablet 25 mg PO QPM 02/05/25 02/05/25 02/04/25 History morphine 30 mg tablet,extended 30 mg PO BID 02/05/25 02/05/25 Unknown History release oxycodone 10 mg tablet 10 mg PO QID 02/05/25 02/05/25 Unknown History Allergies Allergy/AdvReac Type Severity Reaction Status Date / Time Penicillins Allergy Unknown Verified 08/28/24 14:42 PFSH Acute PFSH: Medical History Gastric reflux High cholesterol Type 2 diabetes mellitus Hypertension Social History Smoking and tobacco/nicotine status: former use of tobacco/nicotine Quit status (tobacco/nicotine): has quit using Year quit tobacco: 2024 Vitals/I&O/Wt Last Vital Signs Temp 97.7 F 02/05/25 11:38 Pulse 69 02/05/25 13:45 Resp 18 02/05/25 11:38 BP 193/66 02/05/25 13:30 Pulse Ox 92 02/05/25 13:45 O2 Del Method Room Air 02/05/25 13:45 02/05/25 02/05/25 02/05/25 06:59 14:59 22:59 Intake Total 1250 / 1250 Balance 1250 / 1250 Weight last 48 hrs Weight 158.757 kg Physical Exam Const: COMMON NORMALS: no acute distress EXAM LIMITATIONS: altered mental status GENERAL APPEARANCE: frail appearing NUTRITIONAL APPEARANCE: obese ORIENTATION/CONSCIOUSNESS: Yes awake and Yes confused; not oriented to person, not oriented to place and not oriented to time OTHER: Disheveled in appearance, has long fingernails that are unkempt, has dirt on bilateral soles of his feet, dirt on his legs, has an unkempt appearance, has blood on upper lip, on the bridge of his nose, which appears dry, blood in his brow which is dried Eye: COMMON NORMALS: Equal, round and reactive pupils present Resp: COMMON NORMALS: normal respiratory effort, No retractions, No use of accessory muscles and clear to auscultation bilaterally AUSCULTATION: clear to auscultation bilaterally Cardio: COMMON NORMALS: no JVD, regular rate, regular rhythm, S1 normal heart sound present and S2 normal heart sound present RATE: regular rate RHYTHM: regular rhythm HEART SOUNDS: S1 normal heart sound present and S2 normal heart sound present GI: COMMON NORMALS: Normal to inspection, nondistended, normoactive bowel sounds present, Soft to palpation and non-tender Extremity: NARRATIVE EXTREMITY EXAM: 1+ pitting edema Neuro: OTHER: Not alert to person, place, or time, tenuous airway, moving bilateral upper extremities, but diffusely encephalopathic Sepsis: Is patient septic: Yes Focused sepsis exam performed: Yes Date exam was performed: 02/05/25 Data 02/05/25 13:06 02/05/25 13:06 Micro: Microbiology 02/05/25 12:30 Blood Culture - Preliminary Blood SPECIMEN COLLECTED 02/05/25 13:07 Blood Culture - Preliminary Blood SPECIMEN COLLECTED A&P Assessment and plan (1) Type 2 diabetes mellitus: (2) Acute lower UTI: (3) Acute confusion: (4) Acute encephalopathy: Plan Acute encephalopathy - Secondary to urinary tract infection - With immunocompromise state on chemoradiation Plan - Isolation precautions - vancomycin - Meropenem -Follow blood cultures -Urine cultures - N.p.o. - Monitor mentation closely - Neurochecks, - DNR/DNI, confirmed with at bedside - Type 2 diabetes mellitus, low-dose sliding scale -History of melanoma, fungating mass over lower back, will do a dedicated skin exam once mentation is has improved -Morbid obesity -Follow-up PT OT - Lovenox for DVT prophylaxis PDMP PDMP Reviewed: Not Reviewed Attestations Medical Necessity Statement*: Patient requires hospitalization, inpatient, greater than 2 midnights, for acute encephalopathy secondary to UTI, immunocompromise state on chemoradiation Diagnoses Type 2 diabetes mellitus E11.9 Acute lower UTI N39.0 Acute confusion R41.0 Acute encephalopathy G93.40
--- NOTE | 2025-02-05 15:09 | PC.NURSE ---
Pt was attempting to get out of bed without assistance, 2 other nurses went to pt and went to pull pt up in bed, pt stated You do that again I'll kick your ass! Pt reports that pt does get aggressive at times. Dr. Krishnamurthy notified.
[2025-02-05] MEDS: haloperidol inj 5 mg/mL INJ 1 mL IM (15:12)
--- NOTE | 2025-02-05 15:15 | PC.NURSE ---
PT has ripped apart the VS eqipument. PT has ripped out left IV.
--- NOTE | 2025-02-05 15:21 | PC.NURSE ---
Pt has come to the nurses station twice now requesting that the to be notified that pt is strong as an ox and can really hurt someone if he got ahold of someone.
[2025-02-05] MEDS: vancomycin 1,500 MG/300 ML PIGGYBACK 200 MG IV ×2 (15:39→23:10)
[2025-02-05] MEDS: meropenem 1,000 mg SDV 1000 MG IVP ×2 (15:39→23:11)
--- NOTE | 2025-02-05 16:20 | PC.NURSE ---
report called to [facility] 1620.
--- NOTE | 2025-02-05 16:45 | PHA.VACGOAL ---
Vancomycin Goal - Goal Vancomycin Goal:: 15-20 mg/L Vancomycin Indication:: Other (UTI/SEPSIS) - Therapy Current therapy:: Meropenem Day of therpy:: Day [1]of [] . Actual body weight (kg): 158.757 kg - Data Labs: WBC 16.75 10^3/uL (3.29-11.43) H 02/05/25 13:06 RBC 4.46 10^6/uL (3.85-5.65) 02/05/25 13:06 Hgb 10.90 g/dL (11.27-16.99) L 02/05/25 13:06 Hct 35.8 % (37-53) L 02/05/25 13:06 MCV 80.3 fl (82-101) L 02/05/25 13:06 MCH 24.4 pg (27-33) L 02/05/25 13:06 MCHC 30.4 g/dL (30-55) 02/05/25 13:06 RDW 15.2 % (12.1-15.1) H 02/05/25 13:06 Sodium 135 mmol/L (136-145) L 02/05/25 13:06 Potassium 3.8 mmol/L (3.5-5.1) 02/05/25 13:06 Chloride 100 mmol/L (98-107) 02/05/25 13:06 Carbon Dioxide 23 mmol/L (22-29) 02/05/25 13:06 Anion Gap 15.8 (5-19) 02/05/25 13:06 BUN 8 mg/dL (8-23) 02/05/25 13:06 Creatinine 0.7 mg/dL (0.7-1.2) 02/05/25 13:06 GFR Calculation 112.5 mL/min (90-130) 02/05/25 13:06 Treatment plan:: new consult Regimen:: New start vancomycin for UTI/sepsis. 1000 mg load dose ordered and given in ER. Maintenance dose of 1500 mg q8h started.
--- NOTE | 2025-02-05 17:26 | PC.NURSE ---
Prior to pt being taken up to med surg, this nurse and a tech went to check and change pt, pt refused, began shaking head and yelling no. No Gown in ER, pt had to go up in t-shirt. pt ID band on, allergy band on, and allergy band on.
[2025-02-05] MEDS: atorvastatin 40 mg Tablet 20 MG PO (19:45)
[2025-02-05] MEDS: gabapentin 100 mg Capsule PO ×2 (19:45→21:56)
[2025-02-05] MEDS: oxyCODONE 5 mg IR Tab/Cap 10 MG PO ×2 (19:47→21:57)
[2025-02-05] MEDS: amitriptyline 25 mg Tablet PO (19:48)
[2025-02-05] MEDS: pantoprazole 40 mg SDV IVP (19:50)
[2025-02-05] MEDS: enoxaparin 40 mg/0.4 mL Syringe SUBCUT (19:51)
[2025-02-05 20:01] LABS: Cholesterol 96 mg/dL (0-200); HDL Cholesterol 32 mg/dL (60-100); LDL Cholesterol Calculated 44 mg/dL (50-129); LDL HDL Ratio 1.38 RATIO (0.00-3.22); Thyroid Stimulating Hormone 0.96 uIU/mL (0.27-4.20); Triglycerides 99 mg/dL (0-150)
[2025-02-05 20:48] LABS: Glucose Point of Care 154 mg/dL (70-110)
[2025-02-05 20:57] LABS: Estmated Average Glucose 157; Hemoglobin A1C 7.1 % (4.0-6.0)
[2025-02-05] MEDS: morphine ER (12 HR) 30 mg tablet PO (21:45)
--- NOTE | 2025-02-05 22:24 | PC.NURSE ---
Neglect hotline report #[id number]
[2025-02-05] MEDS: insulin lispro 100 unit/1 mL SUBCUT (22:41)
[2025-02-06] VITALS (15 sets, daily range): BP systolic 124–161; BP diastolic 57–83; PULSE 48–68; RESP 15–17; TEMP 36.3–36.9; O2SAT 92–96
[2025-02-06] MEDS: vancomycin 1,500 MG/300 ML PIGGYBACK 200 MG IV ×2 (05:57→20:45)
[2025-02-06] MEDS: meropenem 1,000 mg SDV 1000 MG IVP ×2 (05:58→16:45)
[2025-02-06 06:38] LABS: Basophils # 0.1 10^3/uL (0.0-0.1); Basophils % 0.5 %; Eosinophils # 0.6 10^3/uL (0.0-0.8); Hematocrit 35.8 % (37-53); Lymphocytes # 0.9 10^3/uL (0.8-4.8); Mean Corpuscular HGB Conc 29.9 g/dL (30-55); Mean Corpuscular Hemoglobin 24.6 pg (27-33); Mean Corpuscular Volume 82.3 fl (82-101); Monocytes # 0.7 10^3/uL (0.2-0.9); Monocytes % 4.4 %; Neutrophils # 13.03 10^3/uL (1.8-7.7); Neutrophils % 84.5 %; Nucleated Red Blood Cells % 0 %; Platelet Count 353 10^3/cmm (157-399); Red Blood Count 4.35 10^6/uL (3.85-5.65); Red Cell Distribution Width 15.2 % (12.1-15.1); White Blood Count 15.39 10^3/uL (3.29-11.43)
[2025-02-06 06:41] LABS: Glucose Point of Care 107 mg/dL (70-110)
[2025-02-06 06:58] LABS: Alanine Aminotransferase 24 U/L (0-41); Albumin Level 3.3 g/dL (3.5-5.2); Alkaline Phosphatase 75 U/L (40-130); Aspartate Amino Transferase 30 U/L (0-40); Blood Urea Nitrogen 9 mg/dL (8-23); C Reactive Protein 76.1 mg/L (0.0-4.9); Calcium 13.4 mg/dL (8.5-10.5); Carbon Dioxide 27 mmol/L (22-29); Chloride 104 mmol/L (98-107); Creatinine Clr Calc Pharmacy 142.1787; Globulin 3.2 g/dL (1.3-4.6); Glomerular Filtration Rate 112.5 mL/min (90-130); Glucose 121 mg/dL (65-115); Magnesium 1.6 mg/dL (1.7-2.3); Osmolality Calculated 286 mOsm/kg (285-295); Phosphorus 2.2 mg/dL (2.5-4.5); Sodium 138 mmol/L (136-145); Total Bilirubin 0.4 mg/dL (0.15-1.2); Total Protein 6.5 g/dL (6.6-8.7)
[2025-02-06 07:07] LABS: NT Pro B Type Natriuretic Pept 334 pg/mL (0-125); Procalcitonin 0.13 ng/mL (0-0.5)
--- NOTE | 2025-02-06 09:04 | PC.CHAP ---
Pastoral Care Encounter/Spiritual Assessment Type of Contact [] Declined isotope hydrologist visit [] Patient/Family/Request visit [] Outpatient visit [] Follow-up visit [] Physician referral [] Code/Alert [x] Routine visit [] Staff referral [] Actively dying [] Patient sleeping [] Family support [] [] Out of room [] Palliative care [] [] Receiving care in room [] Pre-surgical visit [] Trauma [] Long length of stay [] ICU visit [] Other: Relational/Emotional Strength [] Patient feels connected with others/family/visitors/staff [x] Distress [x] Loneliness/isolation [] Abandonment Spirituality of Patient [x] Person of Jackelyn [] Attends Mormonism of their Jackelyn [x] Believes in Prayer [] Reads Bible or Muslim materials [x] There are Spiritual issues to be addressed Manager Cosmetic Interventions [x] Prayer [x] Active listening [x] Non-anxious presence [x] Spiritual/emotional support [] Crisis/trauma care [] Spiritual counseling [] Bereavement support [] Provided bereavement packet [] Provided Bible/devotional materials [] Provided toy/stuffed animal, coloring book to patient or family member [] Provided Communion [] Anointing/[place] [] Salvation [x] Completed spiritual assessment [] Other: Impact on Illness or Injury [] Angry [] Fearful [] Anxious [] Often cries [] Exhaustion [] Unable to work [] Unable to attend oriental orthodox [] Unable to walk/stand [] Unable to read [] Unable to drive [] Unable to eat/drink [] Unable to sleep [] Unable to be with family [] Patient intubated [] Other: Summary Time spent with patient 5 min
[2025-02-06] MEDS: morphine ER (12 HR) 30 mg tablet PO ×2 (09:23→17:57)
[2025-02-06] MEDS: gabapentin 100 mg Capsule PO ×3 (09:23→20:46)
[2025-02-06] MEDS: oxyCODONE 5 mg IR Tab/Cap 10 MG PO ×3 (09:24→20:46)
[2025-02-06] MEDS: sodium chloride 0.9% 1,000 ML 75 ML IV (09:33)
--- NOTE | 2025-02-06 10:32 | PC.OT ---
OT EVALUATION ATTEMPTED. PATIENT UNABLE TO MAINTAIN ALERTNESS. WILL ATTEMPT AGAIN AT A LATER TIME.
[2025-02-06 11:17] LABS: Glucose Point of Care 117 mg/dL (70-110)
--- NOTE | 2025-02-06 13:08 | PC.NURSE ---
notified Dr. Brown patient is not awake enough to eat or take gabapentin or oxy tablets that are scheduled at this time.
--- NOTE | 2025-02-06 13:37 | PC.NURSE ---
Patient has a laceration on medial forehead due to fall from home. Patient still has dried blood on face after two sponge baths per maintenance mechanic 2nd shift. Scab on Right knee, Scab on top of right foot below the great toe. Some open areas and some dark scales wrapping around lower Right extremity. Scabbed sore on Left Great Toe. Small scab on 2nd toe on Left foot. Dark scales (dry) on Left lower extremity around entire leg. Scratch on lower Left extremity that is scabbed. all areas are open to air except for large melanoma on medical buttocks which is covered with 4 abd pads and foam tape applied to hold in place. Patient also has bruising to right elbow. Patient has poor hygiene due to the dry scales on feet as well as on legs and the red raw excoriation under patients breast.
[2025-02-06 15:10] LABS: Vancomycin Trough 22.1 ug/mL (10-15)
--- NOTE | 2025-02-06 16:01 | P.PN_ITS ---
Subjective 2 Subjective: Patient was seen this morning, he is alert to person, not to place, not to time, he easily falls back asleep, no family were at bedside, he has no pain complaints, denies any chest pain, no shortness of breath, no abdominal pain complaints Vitals/I&O/Wt Last Vital Signs Temp 97.6 F 02/06/25 11:24 Pulse 59 L 02/06/25 11:24 Resp 16 02/06/25 11:24 BP 124/71 02/06/25 11:24 Pulse Ox 96 02/06/25 11:24 O2 Del Method Room Air 02/06/25 11:24 02/06/25 02/06/25 02/06/25 06:59 14:59 22:59 Intake Total 300 / 1850 Output Total 120 / 120 Balance 300 / 1850 -120 / -120 Weight last 48 hrs Weight 167.512 kg Weight 158.757 kg Weight 158.757 kg Physical Exam 2 Const: COMMON NORMALS: no acute distress ORIENTATION/CONSCIOUSNESS: Yes awake, Yes oriented to person and Yes confused; not oriented to place and not oriented to time Eye: COMMON NORMALS: Equal, round and reactive pupils present PUPIL: Yes Equal, round and reactive pupils present Resp: COMMON NORMALS: normal respiratory effort, No retractions, No use of accessory muscles and clear to auscultation bilaterally AUSCULTATION: clear to auscultation bilaterally Cardio: COMMON NORMALS: regular rate, regular rhythm, S1 normal heart sound present and S2 normal heart sound present RATE: regular rate RHYTHM: r egular rhythm HEART SOUNDS: S1 normal heart sound present and S2 normal heart sound present GI: COMMON NORMALS: Normal to inspection, nondistended, normoactive bowel sounds present and non-tender Extremity: COMMON NORMALS: no pedal edema Neuro: SENSORIUM/ORIENTATION: Yes oriented to person, No oriented to place and No oriented to time OTHER: He does awaken, moves bilateral upper and lower extremities, can follow some commands, but easily falls back asleep Skin: NARRATIVE SKIN EXAM: Multiple areas of bruising Data 02/06/25 06:24 02/06/25 06:24 Micro: Microbiology 02/05/25 12:30 Blood Culture - Preliminary Blood NEGATIVE TO DATE 02/05/25 13:07 Blood Culture - Preliminary Blood NEGATIVE TO DATE A&P Assessment and plan (1) Type 2 diabetes mellitus: (2) Acute lower UTI: (3) Acute confusion: (4) Acute encephalopathy: Plan Acute encephalopathy, metabolic encephalopathy secondary to UTI - Secondary to urinary tract infection - With immunocompromise state on chemoradiation Plan - Isolation precautions - vancomycin - Meropenem -Follow blood cultures -Urine cultures - Dysphagia level 4 diet, moderately thickened, aspiration precautions - Monitor mentation closely - Neurochecks, - DNR/DNI, confirmed with at bedside - Type 2 diabetes mellitus, low-dose sliding scale -History of melanoma, fungating mass over lower back, will do a dedicated skin exam once mentation is has improved -Morbid obesity - When he arrived he appeared disheveled, unkempt, report has been made to Department of Senior services -Follow-up PT OT - Lovenox for DVT prophylaxis Patient requires hospitalization for acute encephalopathy PDMP PDMP Reviewed: Not Reviewed Attestations 2 Medical Necessity Statement*: Patient requires hospitalization for acute encephalopathy secondary to UTI, acute encephalopathy, deconditioning Diagnoses Type 2 diabetes mellitus E11.9 Acute lower UTI N39.0 Acute confusion R41.0 Acute encephalopathy G93.40
[2025-02-06 16:50] LABS: Glucose Point of Care 117 mg/dL (70-110)
--- NOTE | 2025-02-06 17:35 | PC.NURSE ---
Dr. Brown gave verbal orders to do nystatin powder bid under breast and right side pannus.
[2025-02-06] MEDS: pantoprazole 40 mg SDV IVP (17:56)
[2025-02-06] MEDS: enoxaparin 40 mg/0.4 mL Syringe SUBCUT (17:57)
[2025-02-06] MEDS: amitriptyline 25 mg Tablet PO (17:59)
[2025-02-06] MEDS: nystatin powder 15 gm Btl 1 APPLIC TOPICAL (17:59)
[2025-02-06] MEDS: atorvastatin 40 mg Tablet 20 MG PO (17:59)
[2025-02-06 20:15] LABS: Glucose Point of Care 136 mg/dL (70-110)
[2025-02-07] VITALS (9 sets, daily range): BP systolic 108–153; BP diastolic 60–76; PULSE 59–68; RESP 16–18; TEMP 36.4–36.6; O2SAT 90–100
[2025-02-07 05:33] LABS: Basophils # 0.1 10^3/uL (0.0-0.1); Basophils % 0.7 %; Eosinophils # 0.7 10^3/uL (0.0-0.8); Eosinophils % 5.2 %; Hematocrit 36.1 % (37-53); Lymphocytes # 1.4 10^3/uL (0.8-4.8); Lymphocytes % 10.3 %; Mean Corpuscular Hemoglobin 25.3 pg (27-33); Mean Corpuscular Volume 90.3 fl (82-101); Mean Platelet Volume 9.7 fL (7.4-10.4); Monocytes # 0.8 10^3/uL (0.2-0.9); Neutrophils # 10.23 10^3/uL (1.8-7.7); Neutrophils % 77.3 %; Nucleated Red Blood Cells % 0 %; Platelet Count 284 10^3/cmm (157-399); Red Cell Distribution Width 15.3 % (12.1-15.1); White Blood Count 13.24 10^3/uL (3.29-11.43)
[2025-02-07] MEDS: meropenem 1,000 mg SDV 1000 MG IVP ×2 (06:04→14:53)
[2025-02-07 06:07] LABS: Albumin Level 2.6 g/dL (3.5-5.2); Alkaline Phosphatase 71 U/L (40-130); Blood Urea Nitrogen 11 mg/dL (8-23); C Reactive Protein 71.1 mg/L (0.0-4.9); Calcium 12.5 mg/dL (8.5-10.5); Carbon Dioxide 20 mmol/L (22-29); Chloride 105 mmol/L (98-107); Creatinine Clr Calc Pharmacy 142.1787; Globulin 3.3 g/dL (1.3-4.6); Glomerular Filtration Rate 134.4 mL/min (90-130); Glucose 126 mg/dL (65-115); Magnesium 1.6 mg/dL (1.7-2.3); Osmolality Calculated 279 mOsm/kg (285-295); Phosphorus 2.4 mg/dL (2.5-4.5); Sodium 134 mmol/L (136-145); Total Bilirubin 0.3 mg/dL (0.15-1.2); Total Protein 5.9 g/dL (6.6-8.7)
[2025-02-07 06:14] LABS: Anion Gap 13.7 (5-19); Potassium 4.7 mmol/L (3.5-5.1)
[2025-02-07 06:15] LABS: Alanine Aminotransferase 18 U/L (0-41); Aspartate Amino Transferase 20 U/L (0-40)
[2025-02-07 06:30] LABS: Glucose Point of Care 139 mg/dL (70-110)
[2025-02-07 07:06] LABS: NT Pro B Type Natriuretic Pept 226 pg/mL (0-125); Procalcitonin 0.09 ng/mL (0-0.5)
[2025-02-07] MEDS: OLANZapine 10 mg VIAL 5 MG IM ×3 (11:01→19:23)
[2025-02-07] MEDS: gabapentin 100 mg Capsule PO ×2 (11:36→16:19)
[2025-02-07] MEDS: morphine ER (12 HR) 30 mg tablet PO (11:36)
[2025-02-07] MEDS: oxyCODONE 5 mg IR Tab/Cap 10 MG PO ×2 (11:36→16:19)
[2025-02-07 11:39] LABS: Glucose Point of Care 149 mg/dL (70-110)
[2025-02-07 14:35] LABS: ABG PCO2 43.2 mmHg (35-45); Alveolar-Arterial Oxygen Gradi 4.5 mmHg (5-10); Arterial Blood Gas Hematocrit 32.7 % (42-52); Base Excess ABG 1.5 mmol/L (-2.0-2.0); Blood Gas Allen Test Pos; Blood Gas Operator Identificat CAK; Blood Gas Sample Site Radial, left; Blood Gas Sample Type Arterial; Carboxyhemoglobin 1.3 %THgb (0.4-20.1); HCO3 ABG 26.6 mmol/L (22-26); HGB O2 Sat 89.8 % (95-100); Ionized Calcium Level - ABG 1.8 mmol/L (1.1-1.4); Methemoglobin 1.1 % (0.4-1.5); Oxygen Device ROOM AIR; PO2 ABG 62.2 mmHg (80.0-100.0); PO2 FiO2 Ratio Arterial Blood 296; Potassium Level - ABG 3.7 mmol/L (3.5-5.0); Total Hemoglobin 10.7 g/dL (14-18)
[2025-02-07] MEDS: ipratropium-albuterol 3 mL Neb INHALATION ×2 (14:59→20:51)
--- NOTE | 2025-02-07 15:50 | PC.OT ---
OT EVALUATION ATTEMPTED THREE TIMES; PATIENT RECEIVING IV ULTRASOUND AT 1415, AT 1525 RECEIVING NURSING CARE AND AT 1545 WAS SCREAMING FROM HIS ROOM AND NURSING REQUESTS HOLD
[2025-02-07 16:52] LABS: Glucose Point of Care 131 mg/dL (70-110)
--- NOTE | 2025-02-07 17:06 | P.PN_ITS ---
Subjective 2 Subjective: Patient was examined this morning, is alert to person, not to place, to time, does become agitated, does not follow commands - I spoke to patient's , she tells trip kumar that she cannot take care of him at home, as he is not able to walk, she is spoke to patient's oncologist and she has canceled their trips up to [facility] for his chemoradiation, she is already told the oncologist Vitals/I&O/Wt Last Vital Signs Temp 97.7 F 02/07/25 11:35 Pulse 68 02/07/25 15:07 Resp 16 02/07/25 14:59 BP 153/60 02/07/25 11:35 Pulse Ox 96 02/07/25 15:01 O2 Del Method Room Air 02/07/25 14:59 FiO2 30 02/07/25 15:01 02/07/25 02/07/25 02/07/25 06:59 14:59 22:59 Intake Total 1000 / 1000 Balance 1000 / 1000 Weight last 48 hrs Weight 168.192 kg Weight 167.512 kg Weight 158.757 kg Physical Exam 2 Const: COMMON NORMALS: no acute distress ORIENTATION/CONSCIOUSNESS: Yes awake and Yes confused; not oriented to person, not oriented to place and not oriented to time Eye: COMMON NORMALS: Equal, round and reactive pupils present PUPIL: Yes Equal, round and reactive pupils present Resp: COMMON NORMALS: normal respiratory effort, No retractions, No use of accessory muscles and clear to auscultation bilaterally AUSCULTATION: clear to auscultation bilaterally Cardio: COMMON NORMALS: regular rate, regular rhythm, S1 normal heart sound present and S2 normal heart sound present RATE: regular rate RHYTHM: r egular rhythm HEART SOUNDS: S1 normal heart sound present and S2 normal heart sound present GI: COMMON NORMALS: Normal to inspection, nondistended, normoactive bowel sounds present and non-tender OTHER: Obese abdomen Extremity: COMMON NORMALS: no pedal edema Neuro: SENSORIUM/ORIENTATION: No oriented to person, No oriented to place and No oriented to time Psych: COMMON NORMALS: mental status grossly normal Data 02/07/25 05:22 02/07/25 05:22 Micro: Microbiology 02/05/25 12:30 Blood Culture - Preliminary Blood NEGATIVE TO DATE 02/05/25 13:07 Blood Culture - Preliminary Blood NEGATIVE TO DATE A&P Assessment and plan (1) Type 2 diabetes mellitus: (2) Acute lower UTI: (3) Acute confusion: (4) Acute encephalopathy: (5) Hypercalcemia of malignancy: Plan Acute encephalopathy, metabolic encephalopathy secondary to UTI, hypercalcemia, - Secondary to urinary tract infection - With immunocompromise state on chemoradiation Plan - Isolation precautions - vancomycin - Meropenem -Follow blood cultures -Urine cultures - Dysphagia level 4 diet, moderately thickened, aspiration precautions, speech therapy eval - Monitor mentation closely - Neurochecks, - DNR/DNI, confirmed with at bedside -Due to agitation, start Zyprexa 5 mg twice daily, Zyprexa as needed, Ativan as needed will consider MRI based on clinical progress -He does have hypercalcemia of malignancy, calcium is 13.6, will give him a dose of calcitonin, start IV fluids, consider bisphosphonates based on clinical progress - Type 2 diabetes mellitus, low-dose sliding scale -History of melanoma, fungating mass over lower back, has a history of acinteobacter, and his fungating mass, 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, monitor - When he arrived he appeared disheveled, unkempt, report has been made to Department of Senior services -Deconditioning, according to he was walking on Tuesday before he fell, -Follow-up PT OT - Lovenox for DVT prophylaxis Patient did have an episode of a slide to the ground here, possible unwitnessed fall, will monitor his mentation closely, repeat head CT, monitor serum calcium, continue IV antibiotics, PDMP PDMP Reviewed: Not Reviewed Attestations 2 Medical Necessity Statement*: Patient requires hospitalization for acute encephalopathy due to UTI, hypercalcemia, Diagnoses Type 2 diabetes mellitus E11.9 Acute lower UTI N39.0 Acute confusion R41.0 Acute encephalopathy G93.40 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
--- NOTE | 2025-02-07 17:13 | CTR_ITS ---
PROCEDURE INFORMATION: Exam: CT Head Without Contrast Exam date and time: 02/07/2025 5:47 PM Age: 69 years old Clinical indication: Altered mental status/memory loss; Additional info: AMS TECHNIQUE: Imaging protocol: Computed tomography of the head without contrast. Radiation optimization: All CT scans at this facility use at least one of these dose optimization techniques: automated exposure control; mA and/or kV adjustment per patient size (includes targeted exams where dose is matched to clinical indication); or iterative reconstruction. COMPARISON: CT head wo con* [id number] 02/05/2025 12:15 PM RADIATION DOSE METRICS: Total DLP (mGy-cm): 1253.48 FINDINGS: Brain: No hemorrhage. No edema. Moderate diffuse cerebral atrophy and advanced sequela of chronic small vessel ischemic disease. No mass effect. Cerebral ventricles: No ventriculomegaly. Paranasal sinuses: Visualized sinuses are unremarkable. No fluid levels. Mastoid air cells: Visualized mastoid air cells are well aerated. Bones: Unremarkable. No acute fracture. Soft tissues: Unremarkable. CT/CT head wo con* [id number] IMPRESSION: No acute intracranial abnormality.
[2025-02-07] MEDS: calcitonin,salmon 200 unit/mL SDV 2mL 100 UNIT SUBCUT (18:38)
[2025-02-07] MEDS: enoxaparin 40 mg/0.4 mL Syringe SUBCUT (18:38)
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
[2025-02-07] MEDS: LORazepam 2 mg/mL INJ 1 mL 1 MG IM (20:36)
--- NOTE | 2025-02-07 22:32 | PC.NURSE ---
patient combative and agitated. 1mg ativan im given for agitation, patient tolerated well. nurse unable to give meds or listen to lung sounds due to patient refusing. patient refused to have his blood sugar taken as well. patient currently on a 1:1. sitter at bedside. will attempt to reassess patient at a later time
[2025-02-08] VITALS (17 sets, daily range): BP systolic 115–188; BP diastolic 46–106; PULSE 53–69; RESP 15–31; TEMP 36.4; O2SAT 93–98; BMI 51.5
[2025-02-08] MEDS: OLANZapine 10 mg VIAL 5 MG IM ×2 (00:28→09:04)
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
[2025-02-08] MEDS: LORazepam 2 mg/mL INJ 1 mL 1 MG IM ×2 (04:07→17:47)
[2025-02-08] MEDS: ipratropium-albuterol 3 mL Neb INHALATION ×2 (08:19→20:49)
[2025-02-08] MEDS: calcitonin,salmon 200 unit/mL SDV 2mL 100 UNIT SUBCUT (09:05)
[2025-02-08] MEDS: nystatin powder 15 gm Btl 1 APPLIC TOPICAL ×2 (09:15→18:17)
[2025-02-08 09:16] LABS: Basophils # 0.1 10^3/uL (0.0-0.1); Basophils % 0.5 %; Eosinophils # 0.5 10^3/uL (0.0-0.8); Eosinophils % 3.5 %; Lymphocytes # 0.9 10^3/uL (0.8-4.8); Lymphocytes % 5.7 %; Mean Corpuscular HGB Conc 30.3 g/dL (30-55); Mean Corpuscular Hemoglobin 24.4 pg (27-33); Mean Corpuscular Volume 80.5 fl (82-101); Mean Platelet Volume 9.5 fL (7.4-10.4); Monocytes # 0.7 10^3/uL (0.2-0.9); Monocytes % 4.6 %; Neutrophils # 12.64 10^3/uL (1.8-7.7); Neutrophils % 84.8 %; Nucleated Red Blood Cells % 0 %; Platelet Count 376 10^3/cmm (157-399); Red Blood Count 4.47 10^6/uL (3.85-5.65); Red Cell Distribution Width 15.3 % (12.1-15.1); White Blood Count 14.93 10^3/uL (3.29-11.43)
[2025-02-08 09:43] LABS: Vancomycin Trough 7.1 ug/mL (10-15)
[2025-02-08 09:44] LABS: Alanine Aminotransferase 16 U/L (0-41); Albumin Level 3.1 g/dL (3.5-5.2); Alkaline Phosphatase 80 U/L (40-130); Anion Gap 13.1 (5-19); Aspartate Amino Transferase 14 U/L (0-40); Blood Urea Nitrogen 9 mg/dL (8-23); C Reactive Protein 87.7 mg/L (0.0-4.9); Calcium 11.7 mg/dL (8.5-10.5); Carbon Dioxide 26 mmol/L (22-29); Chloride 103 mmol/L (98-107); Creatinine Clr Calc Pharmacy 142.3394; Globulin 3.7 g/dL (1.3-4.6); Glomerular Filtration Rate 165.9 mL/min (90-130); Glucose 175 mg/dL (65-115); Magnesium 1.6 mg/dL (1.7-2.3); Osmolality Calculated 289 mOsm/kg (285-295); Phosphorus 1.5 mg/dL (2.5-4.5); Potassium 4.1 mmol/L (3.5-5.1); Sodium 138 mmol/L (136-145); Total Bilirubin 0.4 mg/dL (0.15-1.2); Total Protein 6.8 g/dL (6.6-8.7)
[2025-02-08 09:46] LABS: Calcium 11.9 mg/dL (8.5-10.5)
[2025-02-08 10:14] LABS: NT Pro B Type Natriuretic Pept 162 pg/mL (0-125); Procalcitonin 0.09 ng/mL (0-0.5)
[2025-02-08 10:47] LABS: Glucose Point of Care 196 mg/dL (70-110)
[2025-02-08 10:53] LABS: 25 Hydroxy Vitamin D 8 ng/mL (30-100)
--- NOTE | 2025-02-08 11:51 | PC.SOCIAL ---
IMM Update pg 2 of IMM Updated and reviewed w/ patient. Copy provided and copy dated, initialed and placed in chart.
[2025-02-08] MEDS: ziprasidone 20 mg/mL SDV 10 MG IM ×2 (12:26→14:13)
[2025-02-08] MEDS: insulin lispro 100 unit/1 mL SUBCUT ×2 (12:31→18:17)
--- NOTE | 2025-02-08 14:06 | PC.OT ---
OT EVAL ATTEMPTED WITH PT NOT RESPONDING TO NAME. IF PT IS NOT APPROPRIATE FOR OT SERVICES TOMORROW, DISCHARGE SERVICES UNTIL PT HAS IMPROVEMENT IN MENTATION STATUS WITH PT BEING ALERT, COOPERATIVE, AND PLEASANT.
--- NOTE | 2025-02-08 15:31 | PC.SLP ---
PEST CONTROL PILOT treatment attempted however not completed due to agitation level.
--- NOTE | 2025-02-08 16:19 | P.PN_ITS ---
Subjective 2 Subjective: Patient was seen this morning, he does awaken, does not follow commands, easily becomes agitated, starts yelling out, pupils equal round reactive to light, he is moving bilateral upper and lower extremities, but does not follow commands afebrile overnight, normotensive, during my examination he does yell out, he does swear at me, he does try to swing at me Vitals/I&O/Wt Last Vital Signs Temp 97.6 F 02/08/25 11:42 Pulse 69 02/08/25 15:45 Resp 21 H 02/08/25 15:45 BP 188/67 02/08/25 15:45 Pulse Ox 98 02/08/25 15:45 O2 Del Method Room Air 02/08/25 15:45 FiO2 30 02/07/25 15:01 Weight last 48 hrs Weight 167.829 kg Weight 168.192 kg Physical Exam 2 Const: COMMON NORMALS: no acute distress EXAM LIMITATIONS: altered mental status ORIENTATION/CONSCIOUSNESS: Yes awake and Yes confused; not oriented to person, not oriented to place and not oriented to time Resp: COMMON NORMALS: normal respiratory effort, No retractions, No use of accessory muscles and clear to auscultation bilaterally AUSCULTATION: clear to auscultation bilaterally Cardio: COMMON NORMALS: regular rate, regular rhythm, S1 normal heart sound present and S2 normal heart sound present RATE: regular rate RHYTHM: r egular rhythm HEART SOUNDS: S1 normal heart sound present and S2 normal heart sound present GI: COMMON NORMALS: Normal to inspection, nondistended, normoactive bowel sounds present and non-tender Extremity: COMMON NORMALS: no pedal edema Neuro: SENSORIUM/ORIENTATION: No oriented to person, No oriented to place and No oriented to time Skin: NARRATIVE SKIN EXAM: Detailed skin exam, I cannot discern any new rashes, he does have a fungating mass over the back, Sepsis: Is patient septic: No Focused sepsis exam performed: Yes Focused sepsis exam: DP PT pulses palpable, cap refill greater than 2 seconds, no mottling Data 02/08/25 09:04 02/08/25 09:04 A&P Assessment and plan (1) Type 2 diabetes mellitus: (2) Acute lower UTI: (3) Acute confusion: (4) Acute encephalopathy: (5) Hypercalcemia of malignancy: Plan Acute encephalopathy, metabolic encephalopathy secondary to UTI, hypercalcemia, - Secondary to urinary tract infection -Secondary to hypercalcemia -Possible drug withdrawal? Possible withdrawal from narcotics, oxycodone, morphine -Other possibilities include possible chemotherapy side effect? - With immunocompromise state on chemoradiation Plan - Isolation precautions - vancomycin - Meropenem -Follow blood cultures -Urine cultures - Dysphagia level 4 diet, moderately thickened, aspiration precautions, speech therapy eval - Monitor mentation closely - Neurochecks, - DNR/DNI, confirmed with at bedside -Due to agitation, he was placed on Zyprexa 5 mg twice daily, Zyprexa as needed, with Ativan with continued agitation, he has removed his IV lines, has had behaviors of eating at nursing staff, will switch to Geodon, if mentation is not well-controlled we will have to move down to ICU for encephalopathy and agitation -He does have hypercalcemia of malignancy, calcium is 11.7, continue calcitonin, continue IV fluids, c will onsider bisphosphonates based on clinical progress - Type 2 diabetes mellitus, low-dose sliding scale -History of melanoma, fungating mass over lower back, has a history of acinteobacter, and his fungating mass, 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, monitor -With encephalopathy attempts were made to do MRI however patient was encephalopathic, and cannot rely still for the MRI - When he arrived he appeared disheveled, unkempt, report has been made to Department of Senior services -Deconditioning, according to he was walking on Tuesday before he fell, -Follow-up PT OT - Lovenox for DVT prophylaxis Patient did have an episode of a slide to the ground here, possible unwitnessed fall, will monitor his mentation closely, repeat head CT, monitor serum calcium, continue IV antibiotics, PDMP PDMP Reviewed: Not Reviewed Attestations 2 Medical Necessity Statement*: Patient requires hospitalization for acute encephalopathy, agitation, hypercalcemia of malignancy, UTI, Diagnoses Type 2 diabetes mellitus E11.9 Acute lower UTI N39.0 Acute confusion R41.0 Acute encephalopathy G93.40 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
[2025-02-08] MEDS: dexmedeTOMIDine 0.9 % NaCL 400 MCG/100 ML PREMIX (17:49)
[2025-02-08] MEDS: dexmedeTOMIDine 0.9 % NaCL 400 MCG/100 ML PREMIX IV (17:49)
[2025-02-08 18:15] LABS: Glucose Point of Care 144 mg/dL (70-110)
[2025-02-08] MEDS: enoxaparin 40 mg/0.4 mL Syringe SUBCUT (18:16)
[2025-02-08] MEDS: pantoprazole 40 mg SDV IVP (18:17)
[2025-02-08] MEDS: sodium chloride 0.9% 1,000 ML 50 ML IV (18:18)
[2025-02-08 19:25] LABS: Ammonia 69 umol/L (16-60)
[2025-02-08] MEDS: vancomycin 1,500 MG/300 ML PIGGYBACK 200 MG IV (21:50)
[2025-02-08] MEDS: meropenem 1,000 mg SDV 1000 MG IVP (21:50)
[2025-02-08 22:42] LABS: Glucose Point of Care 161 mg/dL (70-110)
[2025-02-09] VITALS (50 sets, daily range): BP systolic 135–193; BP diastolic 45–95; PULSE 47–86; RESP 12–33; O2SAT 90–98
[2025-02-09 04:28] LABS: Basophils # 0.1 10^3/uL (0.0-0.1); Basophils % 0.7 %; Eosinophils # 0.6 10^3/uL (0.0-0.8); Eosinophils % 4.2 %; Lymphocytes # 1.2 10^3/uL (0.8-4.8); Lymphocytes % 8.7 %; Mean Corpuscular HGB Conc 29.5 g/dL (30-55); Mean Corpuscular Hemoglobin 24.6 pg (27-33); Mean Corpuscular Volume 83.5 fl (82-101); Mean Platelet Volume 10.8 fL (7.4-10.4); Monocytes # 0.7 10^3/uL (0.2-0.9); Neutrophils # 10.77 10^3/uL (1.8-7.7); Neutrophils % 79.9 %; Nucleated Red Blood Cells % 0 %; Platelet Count 321 10^3/cmm (157-399); Red Blood Count 4.67 10^6/uL (3.85-5.65); Red Cell Distribution Width 15.5 % (12.1-15.1); White Blood Count 13.48 10^3/uL (3.29-11.43)
[2025-02-09 04:55] LABS: Alanine Aminotransferase 14 U/L (0-41); Albumin Level 2.8 g/dL (3.5-5.2); Alkaline Phosphatase 81 U/L (40-130); Blood Urea Nitrogen 9 mg/dL (8-23); C Reactive Protein 84.2 mg/L (0.0-4.9); Carbon Dioxide 23 mmol/L (22-29); Chloride 106 mmol/L (98-107); Creatinine Clr Calc Pharmacy 142.3394; Globulin 4.1 g/dL (1.3-4.6); Glomerular Filtration Rate 165.9 mL/min (90-130); Glucose 157 mg/dL (65-115); Magnesium 1.7 mg/dL (1.7-2.3); Osmolality Calculated 290 mOsm/kg (285-295); Sodium 139 mmol/L (136-145); Total Bilirubin 0.4 mg/dL (0.15-1.2); Total Protein 6.9 g/dL (6.6-8.7)
[2025-02-09 04:57] LABS: Anion Gap 14.4 (5-19); Aspartate Amino Transferase 15 U/L (0-40); Potassium 4.4 mmol/L (3.5-5.1)
[2025-02-09 05:22] LABS: Procalcitonin 0.08 ng/mL (0-0.5)
[2025-02-09] MEDS: meropenem 1,000 mg SDV 1000 MG IVP ×3 (05:34→19:27)
[2025-02-09] MEDS: vancomycin 1,500 MG/300 ML PIGGYBACK 200 MG IV ×2 (07:34→19:29)
[2025-02-09] MEDS: insulin lispro 100 unit/1 mL SUBCUT (07:35)
[2025-02-09] MEDS: nystatin powder 15 gm Btl 1 APPLIC TOPICAL (07:39)
[2025-02-09 07:51] LABS: Glucose Point of Care 154 mg/dL (70-110)
[2025-02-09] MEDS: ipratropium-albuterol 3 mL Neb INHALATION ×3 (08:19→20:23)
--- NOTE | 2025-02-09 09:09 | PC.OT ---
Evaluation attempted for fourth consecutive day. Patient is still not able to follow simple commands. He was slightly agitated (e.g. pulling at leads for heart monitor, pulling at sheets) and this increased as requests were made of him. Recommend discharging current order; Occupational therapy can be requested once patient's cognition improves. Thank you for this referral.
--- NOTE | 2025-02-09 09:13 | ECG_ITS ---
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
[2025-02-09] MEDS: OLANZapine 10 mg VIAL 5 MG IM ×2 (10:50→22:31)
[2025-02-09] MEDS: calcitonin,salmon 200 unit/mL SDV 2mL 100 UNIT SUBCUT (10:51)
[2025-02-09 11:21] LABS: Glucose Point of Care 135 mg/dL (70-110)
[2025-02-09] MEDS: LORazepam 2 mg/mL INJ 1 mL 1 MG IM (14:36)
--- NOTE | 2025-02-09 14:47 | P.PN_ITS ---
Subjective 2 Subjective: - Patient was seen this morning, - He does awaken, is much more calm, no significant episodes of agitation, he can follow some commands, he tells me he is doing okay, he can follow some commands such as squeezing my fingers, moving his toes - But at other times he easily becomes c onfused, - No facial droop, slurring words, pupil s equal round reactive to light, he localizes pain - Normotensive, afebrile overnight, on P recedex drip for agitation - I had a family meeting with patient's family this afternoon - Patient's family is concerned about hi s persistent encephalopathy after his radiation therapy - Discussed with family that his agitati on is more under control, continues to have episodes of global encephalopathy, but I would say his mentation is improved compared to the last few days - Discussed that he is on broad-spectrum antibiotic therapy for his UTI - Unfortunately I have ordered an MRI bu t it cannot be performed, given his size he cannot fit in our MRI machine - Thoughts of doing an MRI would be the possibility of melanoma metastasizing - He has had 2 negative CTs -The other thought would be possibly sei zure-like episodes I could do a trial of Keppra to see if that improves his mentation, he does have some jerks that come and go, family believes it is because of pain, eventually can do an MRI here at [facility] over the weekend, but certainly can try Tuesday - The other possibility is a could be en cephalitis, I doubt meningitis as he does not have anything new nuchal rigidity,kernig and brudunki sign negative., And I broadly covered him with antibiotics -Unfortunately given his size performing a lumbar puncture would be difficult without IR guidance, certainly we could consider doing a lumbar puncture on him on Tuesday once IR is available but given his BMI this would certainly be difficult, and given the location of his melanoma, concerns for superficial skin infection, could be a risk of introducing an infection if the LP were too close to the area of melanoma, this would have to pick a spot higher up in his spine which would increase the risk of complications, cavitary mass cultures have grown acinetobacter baumanni, so we would have to do her best to avoid any significant contamination, in addition to his immunocompromise state -Other possibility could be a chemothera py/radiation side effect, - Other possibilities include withdrawal from his narcotics as he is on morphine, oxycodone, gabapentin, given his confusion he has not received these narcotics in the last 48 hours, - Hypercalcemia of malignancy certainly could be a possibility, as his calcium levels were high when he initially came in but they have improved with fluids, and calcitonin, down to 11 - I did detailed discussion with patient 's family, patient's daughter, patient's at bedside about all options available, - Discussed risks and benefits of all op tions, they voiced understanding, all questions answered - Patient's family and would prefer for patient to be transferred to the [facility], where his oncology team is - After discussing the risks and benefit s of all options, they voiced understanding, all questions answered, agreed to proceed - Will proceed with initiating transfer to [facility] Vitals/I&O/Wt Last Vital Signs Temp 97.6 F 02/08/25 11:42 Pulse 66 02/09/25 11:33 Resp 20 H 02/09/25 11:33 BP 172/56 02/09/25 07:30 Pulse Ox 95 02/09/25 11:33 O2 Del Method Room Air 02/09/25 11:33 FiO2 30 02/08/25 16:21 02/08/25 02/09/25 02/09/25 22:59 06:59 14:59 Intake Total 42.737 / 42.737 304.195 / 346.932 Balance 42.737 / 42.737 304.195 / 346.932 Weight last 48 hrs Weight 167.829 kg Physical Exam 2 Const: COMMON NORMALS: no acute distress ORIENTATION/CONSCIOUSNESS: Yes awake, Yes oriented to person and Yes confused; not oriented to place and not oriented to time Neck/C-Spine: COMMON NORMALS: no JVD Resp: COMMON NORMALS: normal respiratory effort, No retractions, No use of accessory muscles and clear to auscultation bilaterally AUSCULTATION: clear to auscultation bilaterally Cardio: COMMON NORMALS: no JVD, regular rate, regular rhythm, S1 normal heart sound present and S2 normal heart sound present RATE: regular rate RHYTHM: regular rhythm HEART SOUNDS: S1 normal heart sound present and S2 normal heart sound present GI: COMMON NORMALS: Normal to inspection, nondistended, normoactive bowel sounds present, Soft to palpation and non-tender PALPATION: Yes Soft to palpation OTHER: Morbidly obese abdomen Extremity: COMMON NORMALS: no pedal edema Neuro: SENSORIUM/ORIENTATION: Yes oriented to person, No oriented to place and No oriented to time Psych: COMMON NORMALS: mental status grossly normal Urinary Catheter Management: Ross: Cath Placed During This Visit: yes Reason for Continuing Indwelling Catheter: Accurate Measurement of Urinary Output in Critically Ill Patients Urinary Catheter Date of Insertion: 02/08/25 Urinary Catheter Time of Insertion: 21:00 Data 02/09/25 04:04 02/09/25 04:04 A&P Assessment and plan (1) Type 2 diabetes mellitus: (2) Acute lower UTI: (3) Acute confusion: (4) Acute encephalopathy: (5) Hypercalcemia of malignancy: Plan Acute encephalopathy, metabolic encephalopathy secondary to UTI, hypercalcemia, - Secondary to urinary tract infection -Secondary to hypercalcemia -Possible drug withdrawal? Possible withdrawal from gabapentin, oxycodone, morphine -Other possibilities include possible chemotherapy side effect? -Possible seizures, will consider EEG on Tuesday if patient is still here, as we do have the ability to do it over the weekend, we will consider dose of Keppra -Will consider lumbar puncture, for consideration of encephalitis? - Concerns for metastasis of the brain? MRI cannot be performed here at [facility] due to patient's size - With immunocompromise state on chemoradiation Plan - Isolation precautions - vancomycin - Meropenem -Follow blood cultures -Urine cultures - Dysphagia level 4 diet, moderately thickened, aspiration precautions, speech therapy eval - Monitor mentation closely - Neurochecks, - DNR/DNI, confirmed with at bedside -Due to agitation, moved to ICU for agitation, currently on Precedex drip, Zyprexa 5 mg IM twice daily, Ativan as needed -He does have hypercalcemia of malignancy, calcium is 11.7, continue calcitonin, continue IV fluids, will onsider bisphosphonates based on clinical progress - Type 2 diabetes mellitus, low-dose sliding scale -History of melanoma, fungating mass over lower back, has a history of acinteobacter, multidrug-resistant, and his fungating mass, 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, but can consider Levaquin which has intermediate sensitivity -With encephalopathy attempts were made to do MRI however patient was encephalopathic, unfortunate patient cannot fit in MRI machine -Also ideally we will need MRI of the lumbar spine -Offered to family to place a nasogastric tube so he could get his narcotics however patient's family had declined for now - When he arrived he appeared disheveled, unkempt, report has been made to Department of Senior services -Deconditioning, according to he was walking on Tuesday before he fell, -Follow-up PT OT - Lovenox for DVT prophylaxis Plan for today, continue IV antibiotics, monitor mentation, control agitation, pain control, IV fluids, PDMP PDMP Reviewed: Not Reviewed Attestations 2 Medical Necessity Statement*: Patient requires hospitalization for acute encephalopathy, secondary UTI, hypercalcemia Diagnoses Type 2 diabetes mellitus E11.9 Acute lower UTI N39.0 Acute confusion R41.0 Acute encephalopathy G93.40 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
--- NOTE | 2025-02-09 15:02 | PC.NURSE ---
Patient has been unable to follow commands and swallow pills all shift. Family at bedside. Patient became agitated and pulling at wires and stating he was going home. PRN given.
[2025-02-09] MEDS: LORazepam 2 mg/mL INJ 1 mL 1 MG IVP (17:38)
[2025-02-09] MEDS: pantoprazole 40 mg SDV IVP (18:18)
[2025-02-09] MEDS: levETIRAcetam 1,000 MG/100 ML PREMIX 400 MG IV (18:18)
[2025-02-09] MEDS: enoxaparin 40 mg/0.4 mL Syringe SUBCUT (18:18)
[2025-02-09] MEDS: dextrose 5%-sod chloride 0.9% 1,000 ML 75 ML IV (18:19)
--- NOTE | 2025-02-09 21:00 | ANES.PROC ---
Anesthesia Procedures Procedure/Date: 02/11/25 Central Venous Insert: Central Venous Line: R IJ Time Out Performed: Yes Consent: requested by attending/covering physician, from patient, from other, risks and benefits reviewed and patient agrees to proceed Central Line: New Anesthesia monitors: pulse oximetry, BP cuff and oxygen Vein cannulated: right internal jugular Ultrasound used: to identify patency to vessel Post procedure: Obtain Chest X-Ray Additional Comments: Chloraprep used to cleanse area, lidocaine 1% used to make skin wheel, vein accessed using seldinger technique under US guidance. Wire confirmed in R IJ both in plane and out of plane on US. Catheter placed and guidewire removed. All ports aspirated heme and flushed with saline. Sutured in place and sterile dressing applied Other Information: Diagnosis: DIfficult IV access
[2025-02-09] MEDS: morphine 4 mg/mL SDV 1 mL 2 MG IVP (21:01)
[2025-02-09 22:04] LABS: Glucose Point of Care 201 mg/dL (70-110)
[2025-02-09 22:06] LABS: Ammonia 24 umol/L (16-60)
[2025-02-09] MEDS: OLANZapine 10 mg VIAL (22:35)
[2025-02-09] MEDS: water for injection-sterile 10 ML (22:35)
[2025-02-10] VITALS (55 sets, daily range): BP systolic 111–190; BP diastolic 60–92; PULSE 63–90; RESP 17–34; TEMP 36.1–36.2; O2SAT 89–97
[2025-02-10] MEDS: LORazepam 2 mg/mL INJ 1 mL 1 MG IV ×2 (00:34→04:04)
[2025-02-10 01:06] LABS: ABG PCO2 37.7 mmHg (35-45); ABG PH Result 7.41 (7.35-7.45); Alveolar-Arterial Oxygen Gradi 4.4 mmHg (5-10); Arterial Blood Gas Hematocrit 31.8 % (42-52); Base Excess ABG -0.8 mmol/L (-2.0-2.0); Blood Gas Operator Identificat SAM; Blood Gas Sample Site Brachial, right; Blood Gas Sample Type Arterial; Carboxyhemoglobin 0.7 %THgb (0.4-20.1); HCO3 ABG 23.7 mmol/L (22-26); HGB O2 Sat 98.2 % (95-100); Ionized Calcium Level - ABG 1.5 mmol/L (1.1-1.4); Methemoglobin < 0.0 % (0.4-1.5); Oxygen Saturation ABG 94.5; PO2 FiO2 Ratio Arterial Blood 333; Potassium Level - ABG 3.6 mmol/L (3.5-5.0); Total Hemoglobin 10.4 g/dL (14-18)
--- NOTE | 2025-02-10 03:12 | PC.NURSE ---
Upon arrival to shift patient appeared calm and relaxed. Further into shift patient began to become more aggressive and began thrashing around and telling. Patient proceeded to rip out right hand IV. Patient had no more venous access available. Physician contacted and then decided that central line would be best advised. Central line placed with Dr. Rae and patient then received morphine. Patient then began shouting and more aggravated. This nurse then gave patient ativan to try and relax.
[2025-02-10] MEDS: meropenem 1,000 mg SDV 1000 MG IVP ×3 (04:04→20:32)
[2025-02-10 04:15] LABS: Basophils # 0.1 10^3/uL (0.0-0.1); Basophils % 1.1 %; Eosinophils # 0.5 10^3/uL (0.0-0.8); Eosinophils % 4.7 %; Lymphocytes # 1.1 10^3/uL (0.8-4.8); Lymphocytes % 9.3 %; Mean Corpuscular HGB Conc 30.6 g/dL (30-55); Mean Corpuscular Hemoglobin 24.7 pg (27-33); Mean Corpuscular Volume 80.8 fl (82-101); Mean Platelet Volume 9.7 fL (7.4-10.4); Monocytes # 0.6 10^3/uL (0.2-0.9); Monocytes % 5.6 %; Neutrophils # 8.77 10^3/uL (1.8-7.7); Neutrophils % 77.1 %; Nucleated Red Blood Cells % 0 %; Platelet Count 345 10^3/cmm (157-399); Red Blood Count 4.21 10^6/uL (3.85-5.65); Red Cell Distribution Width 15.5 % (12.1-15.1); White Blood Count 11.37 10^3/uL (3.29-11.43)
[2025-02-10 04:39] LABS: Alanine Aminotransferase 13 U/L (0-41); Albumin Level 2.8 g/dL (3.5-5.2); Alkaline Phosphatase 83 U/L (40-130); Anion Gap 13.9 (5-19); Aspartate Amino Transferase 10 U/L (0-40); Blood Urea Nitrogen 10 mg/dL (8-23); C Reactive Protein 84.2 mg/L (0.0-4.9); Calcium 10.5 mg/dL (8.5-10.5); Carbon Dioxide 22 mmol/L (22-29); Chloride 108 mmol/L (98-107); Creatinine Clr Calc Pharmacy 142.3394; Globulin 3.6 g/dL (1.3-4.6); Glomerular Filtration Rate 165.9 mL/min (90-130); Glucose 193 mg/dL (65-115); Magnesium 1.6 mg/dL (1.7-2.3); Osmolality Calculated 294 mOsm/kg (285-295); Phosphorus 1.9 mg/dL (2.5-4.5); Potassium 3.9 mmol/L (3.5-5.1); Sodium 140 mmol/L (136-145); Total Bilirubin 0.4 mg/dL (0.15-1.2); Total Protein 6.4 g/dL (6.6-8.7)
[2025-02-10 04:42] LABS: Procalcitonin 0.08 ng/mL (0-0.5)
[2025-02-10] MEDS: hyDRALAzine 20 mg/mL INJ 1 mL 10 MG IVP (06:26)
[2025-02-10] MEDS: vancomycin 1,500 MG/300 ML PIGGYBACK 200 MG IV ×2 (07:36→20:34)
[2025-02-10] MEDS: ipratropium-albuterol 3 mL Neb INHALATION ×4 (07:50→20:04)
[2025-02-10] MEDS: dextrose 5%-sod chloride 0.9% 1,000 ML 75 ML IV ×2 (08:29→20:49)
[2025-02-10 09:37] LABS: Glucose Point of Care 200 mg/dL (70-110)
[2025-02-10] MEDS: HYDROmorphone 0.5 MG/0.5 ML INJ 1 MG IVP ×2 (09:37→14:12)
[2025-02-10] MEDS: nystatin powder 15 gm Btl 1 APPLIC TOPICAL ×2 (09:56→17:35)
[2025-02-10] MEDS: insulin lispro 100 unit/1 mL SUBCUT ×3 (09:57→17:30)
[2025-02-10] MEDS: acyclovir 1,000 MG in sodium chloride 0.9% 250 ML 270 MG IV ×2 (10:18→17:09)
[2025-02-10] MEDS: OLANZapine 10 mg VIAL (10:36)
[2025-02-10] MEDS: water for injection-sterile 10 ML 100 ML (10:38)
[2025-02-10 12:39] LABS: Glucose Point of Care 180 mg/dL (70-110)
[2025-02-10] MEDS: calcitonin,salmon 200 unit/mL SDV 2mL 100 UNIT SUBCUT (12:50)
[2025-02-10] MEDS: water for injection-sterile 20 ML 100 ML (13:02)
--- NOTE | 2025-02-10 14:25 | PM.PN ---
Subjective Subjective: - Patient was examined this morning - He is alert to person, not to place, not to time, he can follow some commands, but continues to have global encephalopathy - Afebrile overnight, normotensive - Patient has been septic at [facility], awaiting a bed - I had nursing staff turn patient, observed patient's fungating mass lower lumbar spine area, looks similar to prior, does have some exudate, will obtain some skin cultures, continued dressing changes - On his chest patient has nodular lesion, with a couple of satellite lesions that have ruptured, - Given immunocompromise state, on immunotherapy, possibility of shingles? - Will start him on IV acyclovir - As patient continues to have encephalopathy, as his agitation is more under control, will have the nursing staff put a nasogastric tube - Start him on his p.o. gabapentin, morphine, oxycodone Vitals/I&O/Wt Last Vital Signs Temp 97.1 F L 02/10/25 08:00 Pulse 81 02/10/25 13:00 Resp 21 H 02/10/25 13:00 BP 159/67 02/10/25 13:00 Pulse Ox 95 02/10/25 13:00 O2 Del Method Room Air 02/10/25 07:50 FiO2 30 02/08/25 16:21 02/09/25 02/10/25 02/10/25 22:59 06:59 14:59 Intake Total 300 / 600 1270 / 1270 Balance 300 / 600 1270 / 1270 Physical Exam Const: COMMON NORMALS: no acute distress ORIENTATION/CONSCIOUSNESS: Yes awake, Yes oriented to person and Yes confused; not oriented to place and not oriented to time Eye: COMMON NORMALS: Equal, round and reactive pupils present PUPIL: Yes Equal, round and reactive pupils present Resp: COMMON NORMALS: normal respiratory effort, No retractions, No use of accessory muscles and clear to auscultation bilaterally AUSCULTATION: clear to auscultation bilaterally Cardio: COMMON NORMALS: regular rate, regular rhythm, S1 normal heart sound present and S2 normal heart sound present RATE: regular rate RHYTHM: regular rhythm HEART SOUNDS: S1 normal heart sound present and S2 normal heart sound present GI: COMMON NORMALS: Normal to inspection, nondistended, normoactive bowel sounds present and non-tender Extremity: COMMON NORMALS: no pedal edema Neuro: SENSORIUM/ORIENTATION: Yes oriented to person, No oriented to place and No oriented to time OTHER: Does withdraw from pain, does localize pain, does respond to his name, at times he will follow commands Psych: COMMON NORMALS: mental status grossly normal Skin: OTHER: Fungating mass, lower lumbar spine region, L4-L5 region, measuring 10 x 10 cm, Urinary Catheter Management: Ross: Cath Placed During This Visit: yes Reason for Continuing Indwelling Catheter: Accurate Measurement of Urinary Output in Critically Ill Patients Urinary Catheter Date of Insertion: 02/08/25 Urinary Catheter Time of Insertion: 21:00 Data 02/10/25 03:35 02/10/25 03:35 Micro: Microbiology 02/05/25 12:30 Blood Culture - Final Blood NO GROWTH AFTER 5 DAYS 02/05/25 13:07 Blood Culture - Final Blood NO GROWTH AFTER 5 DAYS A&P Assessment and plan (1) Type 2 diabetes mellitus: (2) Acute lower UTI: (3) Acute confusion: (4) Acute encephalopathy: (5) Hypercalcemia of malignancy: Plan Acute encephalopathy, metabolic encephalopathy secondary to UTI, hypercalcemia, - Secondary to urinary tract infection, blood cultures so far negative -Secondary to hypercalcemia, resolving -Possible drug withdrawal? Possible withdrawal from gabapentin, oxycodone, morphine -Other possibilities include possible chemotherapy side effect? -Possible seizures, has not responded to dose of Keppra 1000 mg given for 2024, will consider EEG on Tuesday if patient is still here, -Will consider lumbar puncture, for consideration of encephalitis? - Concerns for metastasis of the brain? MRI cannot be performed here at [facility] due to patient's size - With immunocompromise state on immunotherapy, and radiation therapy Plan - Isolation precautions - vancomycin - Meropenem -Follow blood cultures -Urine cultures - Dysphagia level 4 diet, moderately thickened, aspiration precautions, speech therapy eval - Monitor mentation closely - Neurochecks, - DNR/DNI, confirmed with at bedside -Due to agitation, agitation more under control, downgraded to floor status, Zyprexa 5 mg IM twice daily, Ativan as needed -He does have hypercalcemia of malignancy, calcium is 10.5, continue calcitonin, continue IV fluids, will ocnsider bisphosphonates based on clinical progress - Type 2 diabetes mellitus, low-dose sliding scale -History of melanoma, fungating mass over lower back, has a history of acinteobacter, multidrug-resistant, and his fungating mass, 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 Possibly shingles, started on a IV acyclovir, contact precautions - When he arrived he appeared disheveled, unkempt, report has been made to Department of Senior services -Deconditioning, according to he was walking on Tuesday before he fell, -Follow-up PT OT - Lovenox for DVT prophylaxis Plan for today, continue IV antibiotics, monitor mentation, control agitation, pain control, IV fluids, PDMP PDMP Reviewed: Not Reviewed Attestations Medical Necessity Statement*: Patient requires hospitalization for acute encephalopathy Diagnoses Type 2 diabetes mellitus E11.9 Acute lower UTI N39.0 Acute confusion R41.0 Acute encephalopathy G93.40 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
--- NOTE | 2025-02-10 14:52 | XRR_ITS ---
PROCEDURE INFORMATION: Exam: XR Chest Exam date and time: 02/10/2025 2:56 PM Age: 69 years old Clinical indication: Device placement; Ng tube confirmation only; Additional info: Ng placement TECHNIQUE: Imaging protocol: Radiologic exam of the chest. Views: 1 view. COMPARISON: CT chest abdpel w/*[id number] 02/05/2025 12:21 PM FINDINGS: Tubes, catheters and devices: Gastric tube terminates in the stomach. Central line terminates near the atriocaval junction. Lungs: Unremarkable. No consolidation. Pleural spaces: Unremarkable. No pleural effusion. No pneumothorax. Heart/Mediastinum: Unremarkable. No cardiomegaly. Bones/joints: Unremarkable. XR/XR chest 1V portable [id number] IMPRESSION: Gastric tube terminates in the stomach.
[2025-02-10 15:06] LABS: Lactate Dehydrogenase 157 U/L (135-225)
--- NOTE | 2025-02-10 15:24 | PC.NURSE ---
1445 Inserted 16gu NG into left nare, syd fair. Xray ordered and done.
[2025-02-10] MEDS: gabapentin 100 mg Capsule NG-TUBE (16:03)
[2025-02-10] MEDS: morphine ER (12 HR) 30 mg tablet PO (16:04)
[2025-02-10 17:28] LABS: Glucose Point of Care 183 mg/dL (70-110)
[2025-02-10] MEDS: amitriptyline 25 mg Tablet PO (17:29)
[2025-02-10] MEDS: atorvastatin 40 mg Tablet 20 MG PO (17:29)
[2025-02-10] MEDS: pantoprazole 40 mg SDV IVP (20:32)
[2025-02-10] MEDS: OLANZapine 10 mg VIAL 5 MG IM (20:33)
[2025-02-10] MEDS: enoxaparin 40 mg/0.4 mL Syringe SUBCUT (20:33)
[2025-02-10 21:05] LABS: Glucose Point of Care 186 mg/dL (70-110)
[2025-02-11] VITALS (55 sets, daily range): BP systolic 106–188; BP diastolic 59–93; PULSE 68–106; RESP 15–31; TEMP 36.2–36.9; O2SAT 89–100
[2025-02-11] MEDS: acyclovir 1,000 MG in sodium chloride 0.9% 250 ML 270 MG IV ×3 (02:08→17:54)
[2025-02-11 03:09] LABS: Glucose Point of Care 234 mg/dL (70-110)
[2025-02-11] MEDS: meropenem 1,000 mg SDV 1000 MG IVP ×2 (03:11→13:08)
[2025-02-11] MEDS: LORazepam 2 mg/mL INJ 1 mL 1 MG IV ×2 (03:17→22:53)
--- NOTE | 2025-02-11 04:00 | PC.NURSE ---
Patient starting to become more agitated and pulling at NG tube. Patient yelling son of a bitch and attempting to hit staff in the room. This nurse attempted to calm patient amd discuss the care being given. PRN medication given. Plan of care ongoing.
[2025-02-11 04:37] LABS: Basophils # 0.1 10^3/uL (0.0-0.1); Basophils % 0.8 %; Eosinophils # 0.5 10^3/uL (0.0-0.8); Eosinophils % 4.7 %; Hematocrit 33.7 % (37-53); Lymphocytes # 0.9 10^3/uL (0.8-4.8); Lymphocytes % 8.9 %; Mean Corpuscular Hemoglobin 24.9 pg (27-33); Mean Corpuscular Volume 83.2 fl (82-101); Mean Platelet Volume 9.9 fL (7.4-10.4); Monocytes # 0.6 10^3/uL (0.2-0.9); Monocytes % 6.3 %; Neutrophils # 7.81 10^3/uL (1.8-7.7); Nucleated Red Blood Cells % 0 %; Platelet Count 303 10^3/cmm (157-399); Red Blood Count 4.05 10^6/uL (3.85-5.65); Red Cell Distribution Width 15.7 % (12.1-15.1); White Blood Count 10.14 10^3/uL (3.29-11.43)
[2025-02-11 04:55] LABS: Alanine Aminotransferase 10 U/L (0-41); Albumin Level 2.8 g/dL (3.5-5.2); Alkaline Phosphatase 84 U/L (40-130); Anion Gap 11.8 (5-19); Aspartate Amino Transferase 9 U/L (0-40); Blood Urea Nitrogen 8 mg/dL (8-23); C Reactive Protein 77.2 mg/L (0.0-4.9); Carbon Dioxide 23 mmol/L (22-29); Chloride 109 mmol/L (98-107); Creatinine Clr Calc Pharmacy 142.3394; Globulin 3.4 g/dL (1.3-4.6); Glomerular Filtration Rate 214.6 mL/min (90-130); Glucose 216 mg/dL (65-115); Magnesium 1.6 mg/dL (1.7-2.3); Osmolality Calculated 295 mOsm/kg (285-295); Phosphorus 1.7 mg/dL (2.5-4.5); Potassium 3.8 mmol/L (3.5-5.1); Sodium 140 mmol/L (136-145); Total Bilirubin 0.4 mg/dL (0.15-1.2); Total Protein 6.2 g/dL (6.6-8.7)
[2025-02-11 05:13] LABS: Procalcitonin 0.09 ng/mL (0-0.5)
[2025-02-11 06:35] LABS: Glucose Point of Care 212 mg/dL (70-110)
[2025-02-11] MEDS: insulin lispro 100 unit/1 mL SUBCUT ×3 (07:48→17:53)
[2025-02-11] MEDS: vancomycin 1,500 MG/300 ML PIGGYBACK 200 MG IV ×2 (07:49→20:37)
[2025-02-11] MEDS: OLANZapine 10 mg VIAL 5 MG IM ×2 (09:08→20:33)
[2025-02-11] MEDS: nystatin powder 15 gm Btl 1 APPLIC TOPICAL ×2 (09:12→17:54)
--- NOTE | 2025-02-11 09:25 | PC.NURSE ---
Upoin morning assessment, patient is disoriented and agitated, attempting to punch and spit on staff. After staff explained to patient where he is and why her eis here, he had become less agressive and agitated. an hour later he became more agitated, pulled his NG tube out and attempted to pull out spaulding. Zyprexa given for agitation.
--- NOTE | 2025-02-11 09:44 | XRR_ITS ---
PROCEDURE INFORMATION: Exam: XR Chest Exam date and time: 02/11/2025 9:52 AM Age: 69 years old Clinical indication: Device placement; Ng tube; Additional info: Ng tube placement TECHNIQUE: Imaging protocol: Radiologic exam of the chest. Views: 1 view. COMPARISON: CR (CHEST, ) 02/10/2025 2:56 PM FINDINGS: Tubes, catheters and devices: NG tube tip is not included on this study. Right-sided central line is cavoatrial junction. Lungs: Pulmonary vessels are within normal limits. The lungs are clear. Pleural spaces: No pneumothorax. Heart/Mediastinum: Cardiomediastinal silhouette is within normal limits. Bones/joints: Unremarkable. XR/XR chest 1V portable [id number] IMPRESSION: NG tube tip is not included on this study. Included view of the NG tube shows the tube is in the stomach.
[2025-02-11] MEDS: gabapentin 100 mg Capsule PO ×4 (11:09→20:31)
[2025-02-11] MEDS: morphine IR 15 mg Tablet 30 MG PO ×2 (11:09→17:53)
[2025-02-11] MEDS: dextrose 5%-sod chloride 0.9% 1,000 ML 75 ML IV ×2 (11:16→23:44)
[2025-02-11 12:25] LABS: Glucose Point of Care 197 mg/dL (70-110)
--- NOTE | 2025-02-11 15:10 | P.PN_ITS ---
Subjective 2 Subjective: - Patient was examined this morning - He is alert to person, he is able to r ecognize me as his physician, he is able to follow commands, but at times he becomes quite agitated confused he tries to remove his Ross catheter - He is also removed his nasogastric tub e - Nursing staff do notice that after he received his gabapentin his morphine his mentation did improve - Discussed with the nursing staff destinybindu ng nasogastric tube back in, will get him back on his home dose of morphine, Neurontin - Was afebrile overnight, normotensive - Confirmed again with MRI that he is to o large to fit in the MRI machine - Plan for lumbar puncture however radio logy cannot access lower lumbar spine given his fungating mass, unfortunate cannot have IR guided lumbar puncture here at [facility] - Patient still awaiting a bed at [facility] - So far blood cultures negative - As blood cultures so far remain unrema rkable he is afebrile, cannot do LP - Possibility of fungal meningitis? Rosas cotter start him on voriconazole Vitals/I&O/Wt Last Vital Signs Temp 97.4 F L 02/11/25 07:33 Pulse 79 02/11/25 08:30 Resp 20 H 02/11/25 11:09 BP 159/68 02/11/25 04:00 Pulse Ox 100 02/11/25 11:09 O2 Del Method Room Air 02/11/25 10:58 FiO2 30 02/08/25 16:21 02/11/25 02/11/25 02/11/25 06:59 14:59 22:59 Intake Total 270 / 3362 1570 / 1570 Output Total 250 / 1200 Balance 2162 1570 / 1570 Weight last 48 hrs Weight 165.833 kg Physical Exam 2 Const: COMMON NORMALS: no acute distress ORIENTATION/CONSCIOUSNESS: Yes awake, Yes oriented to person and Yes confused; not oriented to place and not oriented to time Eye: COMMON NORMALS: Equal, round and reactive pupils present PUPIL: Yes Equal, round and reactive pupils present Resp: COMMON NORMALS: normal respiratory effort, No retractions, No use of accessory muscles and clear to auscultation bilaterally AUSCULTATION: clear to auscultation bilaterally Cardio: COMMON NORMALS: regular rate, regular rhythm, S1 normal heart sound present and S2 normal heart sound present RATE: regular rate RHYTHM: r egular rhythm HEART SOUNDS: S1 normal heart sound present and S2 normal heart sound present GI: COMMON NORMALS: Normal to inspection, nondistended, normoactive bowel sounds present and non-tender Extremity: COMMON NORMALS: no pedal edema Neuro: SENSORIUM/ORIENTATION: Yes oriented to person, No oriented to place and No oriented to time Psych: COMMON NORMALS: mental status grossly normal Urinary Catheter Management: Ross: Cath Placed During This Visit: yes Reason for Continuing Indwelling Catheter: Assist healing open wound Urinary Catheter Date of Insertion: 02/08/25 Urinary Catheter Time of Insertion: 21:00 Data 02/11/25 04:11 02/11/25 04:11 Micro: Microbiology 02/05/25 12:30 Blood Culture - Final Blood NO GROWTH AFTER 5 DAYS 02/05/25 13:07 Blood Culture - Final Blood NO GROWTH AFTER 5 DAYS A&P Assessment and plan (1) Type 2 diabetes mellitus: (2) Acute lower UTI: (3) Acute confusion: (4) Acute encephalopathy: (5) Hypercalcemia of malignancy: Plan Acute encephalopathy, metabolic encephalopathy secondary to UTI, hypercalcemia, - Secondary to urinary tract infection, completed 5 days of IV meropenem, blood cultures so far negative -Secondary to hypercalcemia, resolving -Possible drug withdrawal? Possible withdrawal from gabapentin, oxycodone, morphine -Other possibilities include possible immunotherapy side effect? -Possible seizures, has not responded to dose of Keppra 1000 mg given for 2024, will consider EEG on Tuesday if patient is still here, -Will consider lumbar puncture, for consideration of encephalitis? Concern for leptomeningeal disease/neoplastic meningitis? Given history of fungating melanoma unfortunately cannot proceed with IR guided lumbar puncture given location of patient's fungating mass - Concerns for metastasis of the brain? Concern for MRI cannot be performed here at [facility] due to patient's size - With immunocompromise state on immunotherapy, and radiation therapy Plan - Isolation precautions - vancomyci -Switch to cefepime - Meropenem has been discontinued - Blood cultures no growth 5 days - Repeat blood cultures - Dysphagia level 4 diet, moderately thickened, aspiration precautions, speech therapy eval - Monitor mentation closely - Neurochecks, - DNR/DNI, confirmed with at bedside -Due to agitation, agitation more under control, downgraded to floor status, Zyprexa 5 mg IM twice daily, Ativan as needed -He does have hypercalcemia of malignancy, resolved,calcium is 10, stop calcitonin, had 72 hour of calcitonin, continue IV fluids - Type 2 diabetes mellitus, low-dose sliding scale -History of melanoma, fungating mass over lower back, has a history of acinteobacter, multidrug-resistant, and his fungating mass, 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 Possibly shingles, started on a IV acyclovir, contact precautions -aseptic meningitis? IV acyclovir -possible fungal meningitis? ordered fungal studies, start voriconazole - When he arrived he appeared disheveled, unkempt, report has been made to Department of Senior services -Deconditioning, according to he was walking on Tuesday before he fell, -Follow-up PT OT - Lovenox for DVT prophylaxis Plan for today, continue IV antibiotics, monitor mentation, control agitation, pain control, IV fluids, switch to cefepime, add IV voriconazole, awaiting a bed at [facility] PDM PDMP Reviewed: Last Reviewed 02/10/25 14:50 by Soto Brown MD Attestations 2 Medical Necessity Statement*: Patient requires hospitalization for acute encephalopathy, Diagnoses Type 2 diabetes mellitus E11.9 Acute lower UTI N39.0 Acute confusion R41.0 Acute encephalopathy G93.40 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
--- NOTE | 2025-02-11 15:36 | PC.SOCIAL ---
IMM Update pg 2 of IMM not updated @ this time as patients is not @ bedside and patient is not alert and oriented. Copy left @ bedside and copy dated, initialed and placed in chart.
[2025-02-11] MEDS: VORICONAZOLE IV (16:28)
[2025-02-11] MEDS: SODIUM CHLORIDE 0.9% IV (16:28)
[2025-02-11 16:43] LABS: Glucose Point of Care 158 mg/dL (70-110)
[2025-02-11] MEDS: atorvastatin 40 mg Tablet 20 MG PO (17:53)
[2025-02-11] MEDS: amitriptyline 25 mg Tablet PO (17:53)
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
[2025-02-11] MEDS: pantoprazole 40 mg SDV IVP (20:31)
[2025-02-11] MEDS: water for injection-sterile 10 ML 50 ML (20:36)
[2025-02-11 22:37] LABS: Glucose Point of Care 193 mg/dL (70-110)
[2025-02-11] MEDS: cefepime 2,000 mg SDV 2000 MG IVP (22:53)
[2025-02-12] VITALS (142 sets, daily range): BP systolic 109–179; BP diastolic 49–100; PULSE 67–129; RESP 14–29; TEMP 36.6–37; O2SAT 92–99; BMI 51.0
[2025-02-12 03:52] LABS: Basophils # 0.1 10^3/uL (0.0-0.1); Basophils % 0.7 %; Eosinophils # 0.4 10^3/uL (0.0-0.8); Hematocrit 33.1 % (37-53); Lymphocytes # 1.1 10^3/uL (0.8-4.8); Lymphocytes % 10.9 %; Mean Corpuscular Hemoglobin 24.6 pg (27-33); Mean Corpuscular Volume 84.9 fl (82-101); Mean Platelet Volume 9.8 fL (7.4-10.4); Monocytes # 0.7 10^3/uL (0.2-0.9); Monocytes % 6.7 %; Neutrophils # 7.49 10^3/uL (1.8-7.7); Neutrophils % 76.7 %; Nucleated Red Blood Cells % 0 %; Platelet Count 223 10^3/cmm (157-399); Red Cell Distribution Width 15.8 % (12.1-15.1); White Blood Count 9.76 10^3/uL (3.29-11.43)
[2025-02-12] MEDS: acyclovir 1,000 MG in sodium chloride 0.9% 250 ML 270 MG IV ×2 (04:11→10:42)
[2025-02-12 04:22] LABS: Alanine Aminotransferase 11 U/L (0-41); Albumin Level 2.5 g/dL (3.5-5.2); Alkaline Phosphatase 96 U/L (40-130); Anion Gap 11.9 (5-19); Aspartate Amino Transferase 12 U/L (0-40); Blood Urea Nitrogen 8 mg/dL (8-23); C Reactive Protein 78.1 mg/L (0.0-4.9); Calcium 10.3 mg/dL (8.5-10.5); Carbon Dioxide 23 mmol/L (22-29); Chloride 111 mmol/L (98-107); Creatinine Clr Calc Pharmacy 141.3275; Globulin 3.6 g/dL (1.3-4.6); Glomerular Filtration Rate 165.9 mL/min (90-130); Glucose 201 mg/dL (65-115); Magnesium 1.7 mg/dL (1.7-2.3); Osmolality Calculated 298 mOsm/kg (285-295); Phosphorus 2.4 mg/dL (2.5-4.5); Potassium 3.9 mmol/L (3.5-5.1); Sodium 142 mmol/L (136-145); Total Bilirubin 0.3 mg/dL (0.15-1.2); Total Protein 6.1 g/dL (6.6-8.7)
[2025-02-12 04:25] LABS: Procalcitonin 0.07 ng/mL (0-0.5)
[2025-02-12] MEDS: cefepime 2,000 mg SDV 2000 MG IVP (05:29)
[2025-02-12 07:56] LABS: Glucose Point of Care 185 mg/dL (70-110)
--- NOTE | 2025-02-12 08:51 | PC.NURSE ---
Verbal orders from Dr. Brown to decrease fluids from 75ml/hr to 50ml/hr. See MAR
[2025-02-12] MEDS: LORazepam 2 mg/mL INJ 1 mL 1 MG IV ×2 (08:53→13:07)
[2025-02-12] MEDS: insulin lispro 100 unit/1 mL SUBCUT (08:53)
[2025-02-12] MEDS: SODIUM CHLORIDE 0.9% IV (08:54)
[2025-02-12] MEDS: VORICONAZOLE IV (08:54)
[2025-02-12] MEDS: vancomycin 1,500 MG/300 ML PIGGYBACK 200 MG IV (08:55)
[2025-02-12] MEDS: gabapentin 100 mg Capsule PO (09:51)
[2025-02-12] MEDS: morphine IR 15 mg Tablet 30 MG PO (09:51)
[2025-02-12] MEDS: nystatin powder 15 gm Btl 1 APPLIC TOPICAL (09:52)
[2025-02-12] MEDS: OLANZapine 10 mg VIAL 5 MG IM (09:53)
[2025-02-12 12:35] LABS: Glucose Point of Care 178 mg/dL (70-110)
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
[2025-02-12] MEDS: dextrose 5%-sod chloride 0.9% 1,000 ML 50 ML IV (13:06)
[2025-02-12 14:05] LABS: HSV 2 IGG Type Specific AB <0.90 index
--- NOTE | 2025-02-12 15:42 | PM.PN ---
Subjective Subjective: - Patient was seen this morning, no acute events overnight - This morning, he does awaken to his name, he can follow some commands, pupils equal and reactive to light, he withdraws from pain, he localizes pain, he responds to his name - He easily falls back asleep - Yesterday we had put his nasogastric tube back and once he pulled that out, he has received at least 48 hours of morphine gabapentin - I also started him on voriconazole yesterday for concern for fungal infection/fungal meningitis - He was reexamined in the afternoon, he is much more alert awake he actually took a couple of steps from nursing staff, he is alert to person, he recognizes me as a physician, he is able to follow commands, but at times does not easily become encephalopathic - Currently on 2 L, normotensive, afebrile, urine output 750 Vitals/I&O/Wt Last Vital Signs Temp 97.9 F 02/12/25 12:00 Pulse 74 02/12/25 12:00 Resp 20 H 02/12/25 12:00 BP 148/73 02/12/25 12:00 Pulse Ox 96 02/12/25 12:00 O2 Del Method Nasal Cannula 02/12/25 10:00 O2 Flow Rate 2 02/12/25 10:00 FiO2 30 02/08/25 16:21 02/12/25 02/12/25 02/12/25 06:59 14:59 22:59 Intake Total 1515 / 3335 1985.667 / 1985.667 Output Total 750 / 1150 Balance 765 / 2185 1985.667 / 1985.667 Weight last 48 hrs Weight 165.8 kg Weight 165.833 kg Physical Exam Const: COMMON NORMALS: no acute distress Eye: COMMON NORMALS: Equal, round and reactive pupils present PUPIL: Yes Equal, round and reactive pupils present Neck/C-Spine: COMMON NORMALS: no JVD Chest: OTHER: Rash on his chest, nodular rash, has not ruptured Resp: COMMON NORMALS: normal respiratory effort, No retractions, No use of accessory muscles and clear to auscultation bilaterally AUSCULTATION: clear to auscultation bilaterally Cardio: COMMON NORMALS: no JVD, regular rate, regular rhythm, S1 normal heart sound present and S2 normal heart sound present RATE: regular rate RHYTHM: regular rhythm HEART SOUNDS: S1 normal heart sound present and S2 normal heart sound present GI: COMMON NORMALS: Normal to inspection, nondistended, normoactive bowel sounds present and non-tender Extremity: COMMON NORMALS: no pedal edema Urinary Catheter Management: Ross: Cath Placed During This Visit: yes Reason for Continuing Indwelling Catheter: Accurate Measurement of Urinary Output in Critically Ill Patients Urinary Catheter Date of Insertion: 02/08/25 Urinary Catheter Time of Insertion: 21:00 Data 02/12/25 03:28 02/12/25 03:28 Micro: Microbiology 02/11/25 16:30 Cryptococcal Antigen (Serum) - Final Blood 02/11/25 16:35 Blood Culture - Preliminary Blood SPECIMEN COLLECTED 02/11/25 16:30 Blood Culture - Preliminary Blood SPECIMEN COLLECTED A&P Assessment and plan (1) Type 2 diabetes mellitus: (2) Acute lower UTI: (3) Acute confusion: (4) Acute encephalopathy: (5) Hypercalcemia of malignancy: Plan Acute encephalopathy, metabolic encephalopathy secondary to UTI, hypercalcemia, -Unfortunately mentation has not improved after 5 days of IV antibiotics, correction of hypercalcemia -I would see that most significant improvement in his mentation was seen after nasogastric tube was placed and resumption of his home gabapentin, and morphine was reinstituted -He was also started on voriconazole for concerns for fungal meningitis, I did see improvement once this was initiated - Secondary to urinary tract infection, completed 5 days of IV meropenem, blood cultures so far negative -Secondary to hypercalcemia, resolving -Possible drug withdrawal? Possible withdrawal from gabapentin, oxycodone, morphine, NG tube in place, with resumption of his medications -Other possibilities include possible immunotherapy side effect? -Possible seizures, has not responded to dose of Keppra 1000 mg given for 2024, EEG ordered, not done as of yet -Will consider lumbar puncture, for consideration of encephalitis? Concern for leptomeningeal disease/neoplastic meningitis? Given history of fungating melanoma unfortunately cannot proceed with IR guided lumbar puncture given location of patient's fungating mass - Concerns for metastasis of the brain? Concern for MRI cannot be performed here at [facility] due to patient's size - With immunocompromise state on immunotherapy, and radiation therapy Plan - Isolation precautions - vancomycin - cefepime - Meropenem has been discontinued, as there was a concern of meropenem potentially playing a role in his encephalopathy - Blood cultures no growth 5 days - Repeat blood cultures so far no growth -Afebrile - Dysphagia level 4 diet, moderately thickened, aspiration precautions, speech therapy eval - Monitor mentation closely - Neurochecks, - DNR/DNI, confirmed with at bedside -Due to agitation, agitation more under control, downgraded to floor status, Zyprexa 5 mg IM twice daily, Ativan as needed -He does have hypercalcemia of malignancy, resolved,calcium is 10, stop calcitonin, had 72 hour of calcitonin, continue IV fluids - Type 2 diabetes mellitus, low-dose sliding scale -History of melanoma, fungating mass over lower back, has a history of acinteobacter, multidrug-resistant, and his fungating mass, 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 However rash today continues to look nodular, has not not ruptured possibly shingles, started on a IV acyclovir, contact precautions -aseptic meningitis? 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 ordered fungal studies, cryptococcal serum antigen negative, started voriconazole 02/11/2025 - When he arrived he appeared disheveled, unkempt, report has been made to [facility] -Deconditioning, according to he was walking on Tuesday before he fell, -Follow-up PT OT - Lovenox for DVT prophylaxis Plan for today, will continue IV antibiotics, IV antifungals, IV acyclovir, patient has been accepted at [facility], he has a bed today, will transfer up to [facility] PDMP PDMP Reviewed: Last Reviewed 02/10/25 14:50 by Soto Brown MD Attestations Medical Necessity Statement*: Patient requires hospitalization for acute encephalopathy Diagnoses Type 2 diabetes mellitus E11.9 Acute lower UTI N39.0 Acute confusion R41.0 Acute encephalopathy G93.40 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
--- NOTE | 2025-02-12 15:49 | P.TS_ITS ---
Transfer Summary Providers Date of Admission: 02/05/25 16:08 Date of Discharge/Transfer: 02/12/25 Attending Provider at Admission: Soto Brown MD Attending Provider at Transfer: Soto Brown MD Primary Care Provider: ALISSA Betts Transfer Plans: Anticipated date of transfer: 02/12/25 . Diagnoses at Discharge Discharge Diagnosis (1) Type 2 diabetes mellitus: Status: Acute (2) Acute lower UTI: Status: Acute (3) Acute confusion: Status: Acute (4) Acute encephalopathy: Status: Acute (5) Hypercalcemia of malignancy: Status: Acute Reason for Visit Reason for Visit Gen Weakness, Fall Hospital Course Hospital Course Sohail Delgado is a 69 year old male with a past medical history of insulin- dependent type 2 diabetes, hypertension, hyperlipidemia, melanoma/fungating mass over the lower back, currently follows at [facility], recently had radiation therapy, who presents [facility] due to altered mental status. Currently patient is alert to person, not to place, not to time, does not follow commands, ER provider has provided most information, ER provider advises me that patient recently had radiation therapy yesterday to his fungating mass/melanoma in the lower back, he has been confused since then, he had a fall, he has been weak, which prompted the ER visit today. is not at bedside for history taking, patient was found to have a UTI, evidence of sepsis, hospitalist team was called for admission. Spoke to , patient has had 2 significant falls, one yesterday before getting radiation therapy in 1 today, he has been weak and fatigued, he has had chemo in the last month, he was also confused a bit yesterday she tells me Patient was admitted to [facility] for acute encephalopathy, with sepsis secondary to UTI - He received over 48 hours of IV antibiotics, vancomycin/meropenem, blood cul tures so far no growth, remains afebrile, leukocytosis resolved, however mentation has not significantly improved - There was concerns for possible meropenem induced encephalopathy, he was transition from meropenem to cefepime - There is concern for possible bacterial meningitis as etiology? However lumbar puncture could not be performed given body habitus and location of patient's fungating mass, nonetheless have kept him on vancomycin, cefepime, has a penicillin allergy - Due to persistent encephalopathy, hypercalcemia of malignancy was thought to be an etiology, use management fluids, calcitonin, with resolution of calcium levels near normal range, his mentation has not improved, I have stopped calcitonin, and IV fluids - There was a thought possibly seizures could be playing a role in patient's persistent encephalopathy, he was given several doses of Ativan, and IV Keppra without significant improvement of his mentation - There is a concern for possible viral encephalitis, started on IV acyclovir, has received over for over 72 hours, unfortunately cannot obtain a lumbar puncture due to reasons as above, I have continued IV acyclovir on his transfer, - As his mentation had not significantly improved, he is immunocompromise state, continues to have encephalopathy I started him on IV voriconazole for concerns for possible fungal meningitis, he is on day 2 - I did notice the greatest improvement of his mentation once nasogastric tube was placed and he received his home gabapentin, morphine due to concerns for drug withdrawals - The only other thought for his persistent mentation would be leptomeningeal disease/neoplastic meningitis given his history of fungating lumbar mass/melanoma, unfortunately could not perform a MRI here at [facility] as patient was too large for our MRI machine, and could not perform a lumbar puncture due to reasons as above -Concerns for possible immunotherapy side effect? - As per family request, patient was transferred to [facility] for evaluation by their oncology team, patient was transferred 02/12/2025 - On discharge his mentation is significantly better, he is alert to person, to place, he recognizes me, not to time, he can follow commands, but continues to have generalized encephalopathy and at times due to has severe agitation - He has required several regimens of psychotropic medications due to severe agitation, such as hitting nursing staff, currently he is managed on Zyprexa 5 mg IM twice daily, with Ativan as needed Physical Exam Const: COMMON NORMALS: no acute distress ORIENTATION/CONSCIOUSNESS: Yes awake, Yes oriented to person and Yes confused; not oriented to place and not oriented to time Resp: COMMON NORMALS: normal respiratory effort, No retractions, No use of accessory muscles and clear to auscultation bilaterally AUSCULTATION: clear to auscultation bilaterally Cardio: COMMON NORMALS: regular rate, regular rhythm, S1 normal heart sound present and S2 normal heart sound present RATE: regular rate RHYTHM: regular rhythm HEART SOUNDS: S1 normal heart sound present and S2 normal heart sound present GI: COMMON NORMALS: Normal to inspection, nondistended, normoactive bowel sounds present and non-tender Extremity: COMMON NORMALS: no pedal edema Neuro: SENSORIUM/ORIENTATION: Yes oriented to person, No oriented to place and No oriented to time Urinary Catheter Management: Ross: Cath Placed During This Visit: yes Reason for Continuing Indwelling Catheter: Accurate Measurement of Urinary Output in Critically Ill Patients Urinary Catheter Date of Insertion: 02/08/25 Urinary Catheter Time of Insertion: 21:00 TS Data Studies Completed and Pending Pending at discharge Category Date Time Status EEG electroencephalogram Routine Exams 02/11/25 08:30 Ordered FL guided lumbarpunc dx* [id number] Routine Exams 02/11/25 08:29 Ordered 1-3 Beta D Glucan [Fungitell Glucan Assay (Blood)] Lab 02/10/25 18:52 Received Routine Aspergillus AG,EIA,Serum Stat Lab 02/10/25 18:52 Received BLASTOMYCES AG [MVista Blastomyces AG Quant] Routine Lab 02/10/25 18:52 Received Blood Culture Stat Lab 02/11/25 16:35 Results C Reactive Protein AM LABS Lab 02/13/25 04:00 Ordered C Reactive Protein AM LABS Lab 02/14/25 04:00 Ordered CSF Analysis + Cell Count Stat Lab 02/11/25 08:30 Uncollected CSF Culture & Gram Stain Stat Lab 02/11/25 08:30 Uncollected CSF Culture Stat Lab 02/11/25 08:30 Uncollected CSF Specific Glidden Routine Lab 02/11/25 08:30 Uncollected Coccidioides AB Immunodiffusio Routine Lab 02/10/25 18:52 Received Complete Blood Count w/Auto AM LABS Lab 02/13/25 04:00 Ordered Complete Blood Count w/Auto AM LABS Lab 02/14/25 04:00 Ordered Comprehensive Metabolic Panel AM LABS Lab 02/13/25 04:00 Ordered Comprehensive Metabolic Panel AM LABS Lab 02/14/25 04:00 Ordered Cryptococcal Antigen (CSF) Stat Lab 02/11/25 08:30 Uncollected Cryptococcal Antigen (Serum) Routine Lab 02/11/25 15:13 Uncollected Cyto Order Verification Routine Lab 02/11/25 08:30 Ordered Glucose CSF Routine Lab 02/11/25 08:30 Uncollected Histoplasma Antibody Immunodif Routine Lab 02/10/25 18:52 Received Magnesium AM LABS Lab 02/13/25 04:00 Ordered Magnesium AM LABS Lab 02/14/25 04:00 Ordered Phosphorus AM LABS Lab 02/13/25 04:00 Ordered Phosphorus AM LABS Lab 02/14/25 04:00 Ordered Pneumocystis PCP [Pneumocystis jiroveci Qual PCR] Lab 02/10/25 08:46 Ordered Routine Procalcitonin AM LABS Lab 02/13/25 04:00 Ordered Procalcitonin AM LABS Lab 02/14/25 04:00 Ordered Total Protein CSF Routine Lab 02/11/25 08:30 Uncollected Urine Culture Stat Lab 02/11/25 19:00 Received VDRL on CSF Stat Lab 02/11/25 08:30 Uncollected Varicella Zoster IGG&IGM Stat Lab 02/10/25 18:52 Received MR head wo con* [id number] Routine MRI 02/11/25 08:54 Ordered Completed Studies During Hospitalization Category Date Time Status CT cervical spine wo con [CT cervical spin wo con* Cat Scan 02/05/25 11:56 Completed [id number]] Stat CT chest abdomen pelvis [CT chest abdpel w/*[id number] Cat Scan 02/05/25 11:56 Completed ] Stat CT head wo con* [id number] Routine Cat Scan 02/07/25 17:[address] head wo con* [id number] Stat Cat Scan 02/05/25 11:56 Completed CXRP [XR chest 1V portable [id number]] Stat Exams 02/10/25 14:52 Completed XR chest 1V portable [id number] Routine Exams 02/11/25 09:44 Completed XR chest 1V portable [id number] Stat Exams 02/05/25 11:56 Completed Laboratory Last Values WBC 9.76 10^3/uL (3.29-11.43) 02/12/25 03:28 Corrected WBC Cancelled 02/08/25 09:04 RBC 3.90 10^6/uL (3.85-5.65) 02/12/25 03:28 Hgb 9.60 g/dL (11.27-16.99) L 02/12/25 03:28 Hct 33.1 % (37-53) L 02/12/25 03:28 MCV 84.9 fl (82-101) 02/12/25 03:28 MCH 24.6 pg (27-33) L 02/12/25 03:28 MCHC 29.0 g/dL (30-55) L 02/12/25 03:28 RDW 15.8 % (12.1-15.1) H 02/12/25 03:28 Plt Count 223 10^3/cmm (157-399) 02/12/25 03:28 MPV 9.8 fL (7.4-10.4) 02/12/25 03:28 Gran % Cancelled 02/08/25 09:04 Neut % (Auto) 76.7 % 02/12/25 03:28 Lymph % (Auto) 10.9 % 02/12/25 03:28 Pendleton % (Auto) 6.7 % 02/12/25 03: Eos % (Auto) 4.0 % 02/12/25 03: Baso % (Auto) 0.7 % 02/12/25 03:28 Neut # (Auto) 7.49 10^3/uL (1.8-7.7) 02/12/25 03:28 Lymph # (Auto) 1.1 10^3/uL (0.8-4.8) 02/12/25 03:28 Pend[place] # (Auto) 0.7 10^3/uL (0.2-0.9) 02/12/25 03:28 Eos # (Auto) 0.4 10^3/uL (0.0-0.8) 02/12/25 03:28 Baso # (Auto) 0.1 10^3/uL (0.0-0.1) 02/12/25 03:28 Absolute Gran (auto) Cancelled 02/08/25 09:04 Nucleated RBC % (auto) 0 % 02/12/25 03:28 Nucleated RBCs # 0.0 /100WBC 02/12/25 03:28 Haptoglobin 280.0 mg/L (30-200) H 02/10/25 03:35 PT 15.50 SECONDS (12.1-14.9) H 02/05/25 13:06 INR 1.15 (0.8-1.2) 02/05/25 13:06 APTT 25.0 SECONDS (23.9-36.7) 02/05/25 13:06 Specimen Type Arterial 02/10/25 00:54 Sample Site Brachial, right 02/10/25 00:54 ABG pH 7.41 (7.35-7.45) 02/10/25 00:54 ABG pCO2 37.7 mmHg (35-45) 02/10/25 00:54 ABG pO2 70.0 mmHg (80.0-100.0) L 02/10/25 00:54 ABG PO2/FiO2 Ratio 333 02/10/25 00:54 ABG HCO3 23.7 mmol/L (22-26) 02/10/25 00:54 ABG O2 Saturation 94.5 02/10/25 00:54 ABG Base Excess -0.8 mmol/L (-2.0-2.0) 02/10/25 00:54 Manny Test N/a 02/10/25 00:54 A-a O2 Gradient 4.4 mmHg (5-10) L 02/10/25 00:54 Hematocrit 31.8 % (42-52) L 02/10/25 00:54 Hgb O2 Saturation 98.2 % (95-100) 02/10/25 00:54 Carboxyhemoglobin 0.7 %THgb (0.4-20.1) 02/10/25 00:54 Methemoglobin < 0.0 % (0.4-1.5) L 02/10/25 00:54 Total Hemoglobin 10.4 g/dL (14-18) L 02/10/25 00:54 Sodium 140.0 mmol/L (131-143) 02/10/25 00:54 Potassium 3.6 mmol/L (3.5-5.0) 02/10/25 00:54 Glucose 180.0 mg/dL (70-115) H 02/10/25 00:54 Ionized Calcium 1.5 mmol/L (1.1-1.4) H 02/10/25 00:54 O2 Delivery Device None 02/10/25 00:54 FiO2 21.0 % 02/10/25 00:54 Gas Engine Performance Engineer ID Juan 02/10/25 00:54 Sodium 142 mmol/L (136-145) 02/12/25 03:28 Potassium 3.9 mmol/L (3.5-5.1) 02/12/25 03:28 Chloride 111 mmol/L (98-107) H 02/12/25 03:28 Carbon Dioxide 23 mmol/L (22-29) 02/12/25 03:28 Anion Gap 11.9 (5-19) 02/12/25 03:28 BUN 8 mg/dL (8-23) 02/12/25 03:28 Creatinine 0.5 mg/dL (0.7-1.2) L 02/12/25 03:28 GFR Calculation 165.9 mL/min (90-130) H 02/12/25 03:28 Glucose 201 mg/dL (65-115) H 02/12/25 03:28 POC Glucose 178 mg/dL (70-110) H 02/12/25 12:34 Estimat Average Glucose 157 02/05/25 13:06 Hemoglobin A1c 7.1 % (4.0-6.0) H 02/05/25 13:06 Calculated Osmolality 298 mOsm/kg (285-295) H 02/12/25 03:28 Lactic Acid 2.0 mmol/L (0.5-2.2) 02/05/25 13:06 Calcium 10.3 mg/dL (8.5-10.5) 02/12/25 03:28 Phosphorus 2.4 mg/dL (2.5-4.5) L 02/12/25 03:28 Magnesium 1.7 mg/dL (1.7-2.3) 02/12/25 03:28 Total Bilirubin 0.3 mg/dL (0.15-1.2) 02/12/25 03:28 AST 12 U/L (0-40) 02/12/25 03:28 ALT 11 U/L (0-41) 02/12/25 03:28 Alkaline Phosphatase 96 U/L (40-130) 02/12/25 03:28 Ammonia 24 umol/L (16-60) 02/09/25 21:45 Lactate Dehydrogenase 157 U/L (135-225) 02/10/25 03:35 C-Reactive Protein 78.1 mg/L (0.0-4.9) H 02/12/25 03:28 NT-Pro-B Natriuret Pep 162 pg/mL (0-125) H 02/08/25 09:04 Total Protein 6.1 g/dL (6.6-8.7) L 02/12/25 03:28 Albumin 2.5 g/dL (3.5-5.2) L 02/12/25 03:28 Globulin 3.6 g/dL (1.3-4.6) 02/12/25 03:28 Triglycerides 99 mg/dL (0-150) 02/05/25 13:06 Cholesterol 96 mg/dL (0-200) 02/05/25 13:06 LDL Cholesterol, Calc 44 mg/dL (50-129) L 02/05/25 13:06 HDL Cholesterol 32 mg/dL (60-100) L 02/05/25 13:06 LDL/HDL Ratio 1.38 RATIO (0.00-3.22) 02/05/25 13:06 Cholesterol/HDL Ratio 3.00 mg/dL (1.0-5.00) 02/05/25 13:06 25-OH Vitamin D Total 8 ng/mL (30-100) L 02/08/25 09:04 Procalcitonin 0.07 ng/mL (0-0.5) 02/12/25 03:28 TSH 0.96 uIU/mL (0.27-4.20) 02/05/25 13:06 PTH Intact 6.0 pg/mL (15-65) L 02/08/25 09:04 Calcium (PTH Intact) 11.9 mg/dL (8.5-10.5) H 02/08/25 09:04 Urine Color Yellow (Yellow) 02/05/25 12:09 Urine Appearance Clear (CLEAR) 02/05/25 12:09 Urine pH 5.5 (5-7) 02/05/25 12:09 Ur Specific Glidden 1.021 (1.005-1.030) 02/05/25 12:09 Urine Protein 1+ (Negative) A 02/05/25 12:09 Urine Glucose (UA) Negative (Normal) 02/05/25 12:09 Urine Ketones 1+ (Negative) H 02/05/25 12:09 Urine Blood 1+ (Negative) A 02/05/25 12:09 Urine Nitrate Positive (Negative) A 02/05/25 12:09 Urine Bilirubin Negative (Negative) 02/05/25 12:09 Urine Urobilinogen 1.0 mg/dL (Negative) 02/05/25 12:09 Ur Leukocyte Esterase Trace (Negative) A 02/05/25 12:09 Urine RBC 0-2 /hpf (0-2) 02/05/25 12:09 Urine WBC 21-50 /hpf (0-5) H 02/05/25 12:09 Ur Squamous Epith Cells 0-5 /hpf (0-5) 02/05/25 12:09 Amorphous Sediment Not Reportable 02/05/25 12:09 Urine Bacteria 4+ /hpf (NONE) H 02/05/25 12:09 Hyaline Casts 2.46 /lpf 02/05/25 12:09 Vancomycin Trough 14.0 ug/mL (10-15) 02/10/25 18:52 Ethyl Alcohol < 10 mg/dL (0-10) 02/05/25 13:06 HSV I IgG Ab 21.00 index H 02/10/25 18:52 HSV II IgG <0.90 index 02/10/25 18:52 Radiology Impressions Cervical Spine CT 02/05/25 11:56 IMPRESSION: No evidence of acute fracture or dislocation. Chest/Abdomen/Pelvis CT 02/05/25 11:56 IMPRESSION: Exam is limited due to body habitus and exam performed with arms down resulting in beam hardening artifact. 1. Subpleural 12 mm nodule in the RIGHT upper lobe similar to previous. Metastatic disease not excluded. 2. Cavitating lower back mass described above suspicious for neoplasm. This extends down to the posterior spinous processes in the lumbar spine. This was partially evaluated on the prior pelvis CT 08/28/2024 3. No other acute findings considering significant limitations. Head CT 02/07/25 17:13 IMPRESSION: No acute intracranial abnormality. Chest X-Ray 02/11/25 09:44 IMPRESSION: NG tube tip is not included on this study. Included view of the NG tube shows the tube is in the stomach. Recent Clincial Data Last Vital Signs Temp 97.9 F 02/12/25 12:00 Pulse 74 02/12/25 12:00 Resp 20 H 02/12/25 12:00 BP 148/73 02/12/25 12:00 Pulse Ox 96 02/12/25 12:00 O2 Del Method Nasal Cannula 02/12/25 10:00 O2 Flow Rate 2 02/12/25 10:00 FiO2 30 02/08/25 16:21 Vital Signs Temp Pulse Resp BP Pulse Ox O2 Del Method O2 Flow Rate 02/12/25 12:00 97.9 F 74 20 H 148/73 96 02/12/25 11:55 97.9 F 72 19 H 148/73 95 02/12/25 11:50 72 19 H 148/73 95 02/12/25 11:45 77 22 H 148/73 95 02/12/25 11:40 76 17 148/73 96 02/12/25 11:35 75 20 H 148/73 96 02/12/25 11:30 76 22 H 148/73 95 02/12/25 11:25 75 19 H 148/73 95 02/12/25 11:20 75 17 148/73 96 02/12/25 11:15 75 22 H 148/73 96 02/12/25 11:10 78 22 H 148/73 96 02/12/25 11:05 79 23 H 148/73 95 02/12/25 11:00 129 H 25 H 153/85 99 02/12/25 10:55 71 21 H 153/85 97 02/12/25 10:50 71 22 H 153/85 97 02/12/25 10:45 71 21 H 153/85 98 02/12/25 10:40 73 19 H 153/85 98 02/12/25 10:35 73 19 H 153/85 97 02/12/25 10:30 72 20 H 153/85 97 02/12/25 10:25 70 21 H 125/51 98 02/12/25 10:20 69 19 H 125/51 97 02/12/25 10:15 70 20 H 125/51 96 02/12/25 10:10 70 20 H 125/51 96 02/12/25 10:05 68 22 H 125/51 96 02/12/25 10:00 67 19 H 141/49 95 02/12/25 10:00 71 18 98 Nasal Cannula 2 02/12/25 09:55 72 21 H 141/49 96 02/12/25 09:51 18 95 02/12/25 09:50 74 18 141/49 95 02/12/25 09:45 76 19 H 141/49 95 02/12/25 09:40 75 20 H 141/49 95 02/12/25 09:35 75 20 H 141/49 95 02/12/25 09:30 76 20 H 152/58 96 02/12/25 09:25 76 19 H 152/58 95 02/12/25 09:20 75 18 152/58 96 02/12/25 09:15 75 19 H 152/58 96 02/12/25 09:10 75 19 H 152/58 96 02/12/25 09:05 76 19 H 152/58 97 02/12/25 09:00 75 17 171/58 97 02/12/25 08:55 75 19 H 171/58 98 02/12/25 08:50 74 18 171/58 97 02/12/25 08:45 76 20 H 171/58 97 02/12/25 08:40 77 19 H 171/58 96 02/12/25 08:35 79 171/58 97 02/12/25 08:30 163/81 97 02/12/25 08:00 98.3 F 82 18 139/53 96 02/12/25 07:30 76 20 H 150/55 96 02/12/25 07:00 78 20 H 153/57 97 02/12/25 06:30 78 20 H 131/76 96 02/12/25 06:00 79 21 H 153/62 96 02/12/25 06:00 84 02/12/25 05:30 83 19 H 130/54 95 02/12/25 05:00 81 27 H 148/51 94 02/12/25 04:30 77 20 H 165/60 96 02/12/25 04:00 98.4 F 80 16 134/83 97 02/12/25 04:00 98 15 109/70 Intake & Output/Weight 02/10/25 02/11/25 02/12/25 02/13/25 06:59 06:59 06:59 06:59 Intake Total 600 / 600 3362 / 3362 3335 / 3335 Output Total 1200 / 1200 1150 / 1150 Balance 600 / 600 2162 / 2162 2185 / 2185 Weight 165.833 kg 165.8 kg Vitals Last Vital Signs Temp 97.9 F 02/12/25 12:00 Pulse 74 02/12/25 12:00 Resp 20 H 02/12/25 12:00 BP 148/73 02/12/25 12:00 Pulse Ox 96 02/12/25 12:00 O2 Del Method Nasal Cannula 02/12/25 10:00 O2 Flow Rate 2 02/12/25 10:00 FiO2 30 02/08/25 16:21 TS Medications Medications Acetaminophen (Acetaminophen 325 Mg Tablet) 650 mg PO Q6H PRN PRN Reason: Mild/Mod Pain Or Temp >/= 101 Albuterol/Ipratropium (Ipratropium-Albuterol 3 Ml Neb) 3 ml INHALATION QID.RESPIRATORY PRN PRN Reason: SHORTNESS OF BREATH Amitriptyline HCl (Amitriptyline 25 Mg Tablet) 25 mg PO QPM [facility] Last Admin: 02/11/25 17:53 Dose: 25 mg Atorvastatin Calcium (Atorvastatin 40 Mg Tablet) 20 mg PO QPM [facility] Last Admin: 02/11/25 17:53 Dose: 20 mg Cefepime HCl (Cefepime 2,000 Mg Sdv) 2,000 mg IVP Q8H [facility]; Protocol Last Admin: 02/12/25 05:29 Dose: 2,000 mg Enoxaparin Sodium (Enoxaparin 40 Mg/0.4 Ml Syringe) 40 mg SUBCUT Q24H ALICIA Last Admin: 02/10/25 20:33 Dose: 40 mg Gabapentin (Gabapentin 100 Mg Capsule) 100 mg PO QID [facility] Last Admin: 02/12/25 12:53 Dose: Not Given Glucagon (Glucagon 1 Mg/Ml Kit 1 Ml) 1 mg IM ONCE PRN; Protocol PRN Reason: Adult Acute Hypoglycemia Nursing Prot. Hydralazine HCl (Hydralazine 20 Mg/Ml Inj 1 Ml) 10 mg IVP Q4H PRN PRN Reason: sbp>180 or dbp>90 Last Admin: 02/10/25 06:26 Dose: 10 mg Dextrose (D5w) 500 mls @ 0 mls/hr IV ONCE PRN; Protocol PRN Reason: Adult Acute Hypoglycemia Prot Dextrose (D10w) 125 mls @ 750 mls/hr IV PRN PRN; Protocol PRN Reason: Adult Acute Hypoglycemia Nursing Protocol Dextrose (D10w) 250 mls @ 1,000 mls/hr IV PRN PRN; Protocol PRN Reason: Adult Acute Hypoglycemia Nursing Protocol Vancomycin HCl (Vancocin) 1,500 mg in 300 mls @ 200 mls/hr IV Q12H [facility] Last Infusion: 02/12/25 10:36 Dose: Infused Dextrose/Sodium Chloride (Dextrose 5%-Sod Chloride 0.9%) 1,000 mls @ 50 mls/hr IV .Q20H [facility] Last Admin: 02/12/25 13:06 Dose: 50 mls/hr Acyclovir 1,000 mg/ Sodium (Chloride) 270 mls @ 270 mls/hr IV Q8H [facility] Last Infusion: 02/12/25 11:59 Dose: Infused Voriconazole 600 mg/ Sodium (Chloride) 250 mls @ 166.667 mls/hr IV Q12H [facility] Insulin Human Lispro (Insulin Lispro 100 Unit/1 Ml) 0 unit SUBCUT TIDWM [facility]; Protocol Last Admin: 02/12/25 12:52 Dose: Not Given Lorazepam (Lorazepam 2 Mg/Ml Inj 1 Ml) 1 mg IV Q4H PRN PRN Reason: AGITATION Last Admin: 02/12/25 13:07 Dose: 1 mg Morphine Sulfate (Morphine Ir 15 Mg Tablet) 30 mg PO BID [facility] Last Admin: 02/12/25 09:51 Dose: 30 mg Naloxone HCl (Naloxone 0.4 Mg/Ml Sdv) 0.1 mg IVP Q2M PRN PRN Reason: OPIATERV Nystatin (Nystatin Powder 15 Gm Btl) 1 applic TOPICAL BID [facility] Last Admin: 02/12/25 09:52 Dose: 1 applic Olanzapine (Olanzapine 10 Mg Vial) 5 mg IM Q6H PRN PRN Reason: SEVERE AGITATION Olanzapine (Olanzapine 10 Mg Vial) 5 mg IM Q12H [facility] Last Admin: 02/12/25 09:53 Dose: 5 mg Ondansetron HCl (Ondansetron 2 Mg/Ml Sdv 2 Ml) 4 mg IVP Q8H PRN PRN Reason: vomiting, or N/V if npo Oxycodone HCl (Oxycodone 5 Mg Ir Tab/Cap) 10 mg PO Q6H PRN PRN Reason: pain Pantoprazole Sodium (Pantoprazole 40 Mg Sdv) 40 mg IVP Q24H [facility] Last Admin: 02/11/25 20:31 Dose: 40 mg Discontinued Medications Albuterol/Ipratropium (Ipratropium-Albuterol 3 Ml Neb) 3 ml INHALATION QID.RESPIRATORY [facility] Last Admin: 02/11/25 08:49 Dose: Not Given Calcitonin Palmetto (Calcitonin,Palmetto 200 Unit/Ml Sdv 2ml) 100 unit SUBCUT DAILY [facility] Last Admin: 02/10/25 12:50 Dose: 100 unit Ceftriaxone Sodium (Ceftriaxone 1,000 Mg Sdv) 1,000 mg IVP ONCE ONE; Protocol Stop: 02/05/25 11:57 Last Admin: 02/05/25 13:11 Dose: 1,000 mg Furosemide (Furosemide 10 Mg/Ml Sdv 4ml) 40 mg IVP ONCE ONE Stop: 02/09/25 17:38 Gabapentin (Gabapentin 100 Mg Capsule) 100 mg PO QID [facility] Last Admin: 02/10/25 13:03 Dose: Not Given Gabapentin (Gabapentin 100 Mg Capsule) 100 mg NG-TUBE ONCE [facility] Last Admin: 02/10/25 16:03 Dose: 100 mg Haloperidol Lactate (Haloperidol Inj 5 Mg/Ml Inj 1 Ml) 5 mg IM NOW ONE Stop: 02/05/25 15:10 Last Admin: 02/05/25 15:12 Dose: 5 mg Hydromorphone HCl (Hydromorphone 0.5 Mg/0.5 Ml Inj) 1 mg IVP ONCE ONE Stop: 02/10/25 09:03 Last Admin: 02/10/25 09:37 Dose: 1 mg Hydromorphone HCl (Hydromorphone 0.5 Mg/0.5 Ml Inj) 1 mg IVP Q4H PRN PRN Reason: PAIN Last Admin: 02/10/25 14:12 Dose: 1 mg Sodium Chloride (Sodium Chloride 0.9%) 1,000 mls @ 999 mls/hr IV .Q1H1M ONE Stop: 02/05/25 12:56 Last Infusion: 02/05/25 14:55 Dose: Infused Vancomycin HCl 1,000 mg/ (Sodium Chloride) 250 mls @ 250 mls/hr IV ONCE ONE; Protocol Stop: 02/05/25 12:55 Last Infusion: 02/05/25 14:55 Dose: Infused Vancomycin HCl (Vancocin) 1,500 mg in 300 mls @ 200 mls/hr IV Q8H [facility] Last Admin: 02/07/25 07:39 Dose: Not Given Sodium Chloride (Sodium Chloride 0.9%) 1,000 mls @ 75 mls/hr IV .[id number] [facility] Last Infusion: 02/07/25 07:39 Dose: Infused Sterile Water (Water) Confirm Administered Dose 10 mls @ as directed .ROUTE .STK-MED ONE Stop: 02/07/25 10:54 Last Admin: 02/07/25 11:37 Dose: Not Given Sterile Water (Water) Confirm Administered Dose 10 mls @ as directed .ROUTE .STK-MED ONE Stop: 02/07/25 15:23 Last Admin: 02/07/25 15:32 Dose: Not Given Sodium Chloride (Sodium Chloride 0.9%) 1,000 mls @ 50 mls/hr IV .Q20H ALICIA Last Admin: 02/09/25 16:56 Dose: Not Given Sterile Water (Water) Confirm Administered Dose 10 mls @ as directed .ROUTE .ST K-MED ONE Stop: 02/07/25 18:54 Last Admin: 02/07/25 19:24 Dose: Not Given Sterile Water (Water) Confirm Administered Dose 10 mls @ as directed .ROUTE .STK-MED ONE Stop: 02/08/25 00:20 Last Admin: 02/08/25 01:40 Dose: Not Given Sterile Water (Water) Confirm Administered Dose 10 mls @ as directed .ROUTE .STK-MED ONE Stop: 02/08/25 08:35 Last Admin: 02/08/25 10:40 Dose: Not Given Sterile Water (Water) Confirm Administered Dose 10 mls @ as directed .ROUTE .STK-MED ONE Stop: 02/08/25 11:20 Last Admin: 02/08/25 12:28 Dose: Not Given Sterile Water (Water) Confirm Administered Dose 10 mls @ as directed .ROUTE .STK-MED ONE Stop: 02/08/25 13:58 Last Admin: 02/08/25 14:53 Dose: Not Given Dexmedetomidine/Sodium Chloride (Precedex) Confirm Administered Dose 400 mcg in 100 mls @ as directed .ROUTE .STK-MED ONE Stop: 02/08/25 17:46 Last Admin: 02/08/25 17:49 Dose: 0.1 mls/hr Dexmedetomidine/Sodium Chloride (Precedex) 400 mcg in 100 mls @ 0 mls/hr IV .Q0M ALICIA; Protocol Last Titration: 02/08/25 23:20 Dose: 0 mcg/kg/hr, 0 mls/hr Sterile Water (Water) Confirm Administered Dose 10 mls @ as directed .ROUTE .STK-MED ONE Stop: 02/09/25 10:51 Last Admin: 02/09/25 12:32 Dose: Not Given Levetiracetam (Keppra) 1,000 mg in 100 mls @ 400 mls/hr IV ONCE ONE Stop: 02/09/25 17:49 Last Admin: 02/09/25 18:18 Dose: 400 mls/hr Sterile Water (Water) Confirm Administered Dose 10 mls @ as directed .ROUTE .[facility]-MED ONE Stop: 02/09/25 22:30 Last Infusion: 02/10/25 19:35 Dose: Infused Sterile Water (Water) Confirm Administered Dose 10 mls @ as directed .ROUTE .ST-MED ONE Stop: 02/10/25 09:53 Last Infusion: 02/10/25 10:43 Dose: Infused Sterile Water (Water) Confirm Administered Dose 20 mls @ as directed .ROUTE .[facility] ONE Stop: 02/10/25 12:48 Last Infusion: 02/10/25 13:07 Dose: Infused Sterile Water (Water) Confirm Administered Dose 10 mls @ as directed .ROUTE .[facility] ONE Stop: 02/10/25 19:55 Last Admin: 02/10/25 20:34 Dose: Not Given Sterile Water (Water) Confirm Administered Dose 10 mls @ as directed .ROUTE .[facility] ONE Stop: 02/11/25 09:07 Last Admin: 02/11/25 13:09 Dose: Not Given Voriconazole 1,000 mg/ Sodium (Chloride) 250 mls @ 250 mls/hr IV Q12H [facility] Stop: 02/12/25 04:59 Last Infusion: 02/11/25 18:15 Dose: Infused Voriconazole 1,000 mg/ Sodium (Chloride) 250 mls @ 250 mls/hr IV Q12H [facility] Stop: 02/12/25 06:59 Last Infusion: 02/12/25 10:09 Dose: Infused Sterile Water (Water) Confirm Administered Dose 10 mls @ as directed .ROUTE .[facility] ONE Stop: 02/11/25 20:17 Last Infusion: 02/12/25 03:09 Dose: Infused Sodium Chloride (Sodium Chloride 0.9%) Confirm Administered Dose 250 mls @ as directed .ROUTE .[facility] ONE Stop: 02/12/25 04:02 Last Admin: 02/12/25 05:16 Dose: Not Given Sterile Water (Water) Confirm Administered Dose 10 mls @ as directed .ROUTE .[facility]-MED ONE Stop: 02/12/25 09:34 Last Admin: 02/12/25 09:54 Dose: Not Given Iohexol (Iohexol 350 Mg/Ml 500 Ml Btl (Per Ml)) 0 ml IV ONCE ONE Stop: 02/05/25 12:26 Last Admin: 02/05/25 12:26 Dose: 100 ml Lorazepam (Lorazepam 2 Mg/Ml Inj 1 Ml) 1 mg IVP Q8H PRN PRN Reason: AGITATION Lorazepam (Lorazepam 2 Mg/Ml Inj 1 Ml) 1 mg IM Q8H PRN PRN Reason: AGITATION Last Admin: 02/09/25 14:36 Dose: 1 mg Lorazepam (Lorazepam 2 Mg/Ml Inj 1 Ml) 1 mg IV Q8H PRN PRN Reason: AGITATION Lorazepam (Lorazepam 2 Mg/Ml Inj 1 Ml) 1 mg IVP ONCE ONE Stop: 02/09/25 17:35 Last Admin: 02/09/25 17:38 Dose: 1 mg Meropenem (Meropenem 1,000 Mg Sdv) 1,000 mg IVP Q8H ALICIA; Protocol Last Admin: 02/09/25 13:25 Dose: 1,000 mg Meropenem (Meropenem 1,000 Mg Sdv) 1,000 mg IVP Q8H ALICIA; Protocol Last Admin: 02/11/25 13:08 Dose: 1,000 mg Morphine Sulfate (Morphine Er (12 Hr) 30 Mg Tablet) 30 mg PO BID ALICIA Last Admin: 02/10/25 19:34 Dose: Not Given Morphine Sulfate (Morphine 4 Mg/Ml Sdv 1 Ml) 2 mg IVP Q4H PRN PRN Reason: SEVERE PAIN Last Admin: 02/09/25 21:01 Dose: 2 mg Morphine Sulfate (Morphine Er (12 Hr) 30 Mg Tablet) 30 mg PO Q12H ALICIA Morphine Sulfate (Morphine Er (12 Hr) 30 Mg Tablet) 30 mg PO Q12H ALICIA Last Admin: 02/10/25 16:28 Dose: Not Given Morphine Sulfate (Morphine Er (12 Hr) 30 Mg Tablet) 30 mg PO Q12H ALICIA Morphine Sulfate (Morphine Ir 15 Mg Tablet) 30 mg PO ONCE ONE Stop: 02/10/25 15:52 Last Admin: 02/10/25 16:16 Dose: Not Given Morphine Sulfate (Morphine Er (12 Hr) 30 Mg Tablet) 30 mg PO ONCE ALICIA Last Admin: 02/10/25 16:04 Dose: 30 mg Olanzapine (Olanzapine 10 Mg Vial) 5 mg IM BID ALICIA Last Admin: 02/08/25 09:04 Dose: 5 mg Olanzapine (Olanzapine 10 Mg Vial) Confirm Administered Dose 10 mg .ROUTE .STK- MED ONE Stop: 02/07/25 10:54 Last Admin: 02/07/25 11:37 Dose: Not Given Olanzapine (Olanzapine 10 Mg Vial) 5 mg IM ONCE ONE Stop: 02/07/25 15:20 Last Admin: 02/07/25 15:31 Dose: 5 mg Olanzapine (Olanzapine 10 Mg Vial) Confirm Administered Dose 10 mg .ROUTE .STK- MED ONE Stop: 02/07/25 15:23 Last Admin: 02/07/25 15:32 Dose: Not Given Olanzapine (Olanzapine 10 Mg Vial) 5 mg IM Q12H PRN PRN Reason: SEVERE AGITATION Last Admin: 02/08/25 00:28 Dose: 5 mg Olanzapine (Olanzapine 10 Mg Vial) Confirm Administered Dose 10 mg .ROUTE .STK- MED ONE Stop: 02/07/25 18:54 Last Admin: 02/07/25 19:24 Dose: Not Given Olanzapine (Olanzapine 10 Mg Vial) Confirm Administered Dose 10 mg .ROUTE .STK- MED ONE Stop: 02/08/25 00:20 Olanzapine (Olanzapine 10 Mg Vial) Confirm Administered Dose 10 mg .ROUTE .STK- MED ONE Stop: 02/08/25 08:35 Last Admin: 02/08/25 10:40 Dose: Not Given Olanzapine (Olanzapine 10 Mg Vial) Confirm Administered Dose 10 mg .ROUTE .STK- MED ONE Stop: 02/09/25 10:51 Last Admin: 02/09/25 12:32 Dose: Not Given Olanzapine (Olanzapine 10 Mg Vial) Confirm Administered Dose 10 mg .ROUTE .STK- MED ONE Stop: 02/09/25 22:30 Last Admin: 02/09/25 22:35 Dose: 10 mg Olanzapine (Olanzapine 10 Mg Vial) Confirm Administered Dose 10 mg .ROUTE .STK- MED ONE Stop: 02/10/25 09:53 Last Admin: 02/10/25 10:36 Dose: 10 mg Olanzapine (Olanzapine 10 Mg Vial) Confirm Administered Dose 10 mg .ROUTE .STK- MED ONE Stop: 02/10/25 19:55 Olanzapine (Olanzapine 10 Mg Vial) Confirm Administered Dose 10 mg .ROUTE .STK- MED ONE Stop: 02/11/25 09:07 Last Admin: 02/11/25 09:45 Dose: Not Given Olanzapine (Olanzapine 10 Mg Vial) Confirm Administered Dose 10 mg .ROUTE .STK- MED ONE Stop: 02/11/25 20:17 Olanzapine (Olanzapine 10 Mg Vial) Confirm Administered Dose 10 mg .ROUTE .STK- MED ONE Stop: 02/12/25 09:34 Oxycodone HCl (Oxycodone 5 Mg Ir Tab/Cap) 10 mg PO QID ALICIA Last Admin: 02/10/25 19:38 Dose: Not Given Ziprasidone (Ziprasidone 20 Mg/Ml Sdv) 10 mg IM NOW ONE Stop: 02/08/25 11:11 Last Admin: 02/08/25 12:26 Dose: 10 mg Ziprasidone (Ziprasidone 20 Mg/Ml Sdv) Confirm Administered Dose 20 mg .ROUTE .STK-MED ONE Stop: 02/08/25 11:20 Last Admin: 02/08/25 12:28 Dose: Not Given Ziprasidone (Ziprasidone 20 Mg/Ml Sdv) 10 mg IM NOW ONE Stop: 02/08/25 13:52 Last Admin: 02/08/25 14:13 Dose: 10 mg Ziprasidone (Ziprasidone 20 Mg/Ml Sdv) Confirm Administered Dose 20 mg .ROUTE .STK-MED ONE Stop: 02/08/25 13:58 Last Admin: 02/08/25 14:53 Dose: Not Given Allergies Penicillins Allergy (Verified 08/28/24 14:42) Unknown Home Medications atorvastatin 20 mg tablet 20 mg PO QPM 08/28/24 [History Confirmed 02/05/25] fluticasone propionate 50 mcg/actuation nasal spray,suspension 2 spray intranasal DAILY 08/28/24 [History Confirmed 02/05/25] gabapentin 100 mg capsule 100 mg PO QID 08/28/24 [History Confirmed 02/05/25] glipizide 10 mg tablet 10 mg PO DAILY 08/28/24 [History Confirmed 02/05/25] hydralazine 10 mg tablet 10 mg PO TID 08/28/24 [History Confirmed 02/05/25] insulin glargine 100 unit/mL (3 mL) subcutaneous pen (Lantus Solostar U-100 Insulin) See Rx Instructions .Route .COMPLEX 08/28/24 [History Confirmed 02/05/25] lisinopril 40 mg tablet 40 mg PO DAILY 08/28/24 [History Confirmed 02/05/25] metformin 1,000 mg tablet 1,000 mg PO BID 08/28/24 [History Confirmed 02/05/25] sitagliptin phosphate 100 mg tablet (Januvia) 100 mg PO DAILY 08/28/24 [History Confirmed 02/05/25] ipratropium 20 mcg-albuterol 100 mcg/actuation mist for inhalation (Combivent Respimat) 1 puff inhalation QID #4 grams 11/25/24 [Rx Confirmed 02/05/25] amitriptyline 25 mg tablet 25 mg PO QPM 02/05/25 [History Confirmed 02/05/25] morphine 30 mg tablet,extended release 30 mg PO BID 02/05/25 [History Confirmed 02/05/25] oxycodone 10 mg tablet 10 mg PO QID 02/05/25 [History Confirmed 02/05/25] Discharge Plan Discharge Patient Disposition: Home Condition: Stable Prescriptions: No Action hydralazine 10 mg tablet 10 mg PO TID atorvastatin 20 mg tablet 20 mg PO QPM glipizide 10 mg tablet 10 mg PO DAILY metformin 1,000 mg tablet 1,000 mg PO BID gabapentin 100 mg capsule 100 mg PO QID lisinopril 40 mg tablet 40 mg PO DAILY fluticasone propionate 50 mcg/actuation spray,suspension 2 spray INTRANASAL DAILY Januvia 100 mg tablet 100 mg PO DAILY insulin glargine [Lantus Solostar U-100 Insulin] 100 unit/mL (3 mL) insulin pen See Rx Instructions .ROUTE .COMPLEX Rx Instructions: INJECT 50 UNITS subcutaneously DAILY; INCREASE BY 2 UNITS EVERY TUESDAY AND TUESDAY IF PRIOR BLOOd SUGAR > 140. MAX 100 UNITS DAILY morphine 30 mg tablet extended release 30 mg PO BID amitriptyline 25 mg tablet 25 mg PO QPM oxycodone 10 mg tablet 10 mg PO QID Combivent Respimat 20-100 mcg/actuation mist 1 puff inhalation QID Qty: 4 0RF Rx Instructions: space evenly during waking hours Referrals: OCTAVIO Peters, [employer] [Primary Care Provider] - Patient Instructions: Opioid Safety Transfer Attestations Time Spent in Transfer Care: greater than 30 min Quality Metrics Clinical Quality Measures [ No reported AMI, CVA or VTE this stay] Coding Level of Care Code Acute Code for Chg Fwd Diagnoses Type 2 diabetes mellitus E11.9 Acute lower UTI N39.0 Acute confusion R41.0 Acute encephalopathy G93.40 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
--- NOTE | 2025-02-12 18:49 | PC.NURSE ---
Patient left facility at 1848 via [facility] to [place]. Report called to BYRON Rooney at [place]. Liset at [place] transfer called and notified the time patient left the unit. Patients medications put in return to pharmacy bin. notified of patients transfer. Ramón at [facility] notified of patients condition and AMS.
[2025-02-14 11:00] LABS: Blastomyces Antigen Interpret NEGATIVE; Blastomyces Antigen Result NONE DETECTED
[2025-02-14 15:05] LABS: Aspergillus AG,EIA,Serum NOT DETECTED; Aspergillus Galactomannan Inde <0.50
[2025-02-14 18:05] LABS: Fungitell 1-3-B Glucan Assay <31 pg/mL (<60); Interpretation Negative (Negative)
[2025-02-16 18:48] LABS: Coccidioides IgG Antibody NEGATIVE; Coccidioides IgM Antibody NEGATIVE; Histoplasma capsulatum H Ab NEGATIVE; Histoplasma capsulatum M Ab NEGATIVE
== END 2025-02-12 18:47 | disposition short-term general hospital (02) | DRG 871 ==
LOC: ER 15:06 → MEDSURG 16:09 → ICU 02-08 17:18
PROVIDERS: Internal Medicine; Admitting Provider Family Medicine; Emergency Provider Emergency Medicine; PCP Nurse Practitioner Family; Visit Provider Family Medicine
DX: A41.9 Sepsis, unspecified organism (principal); G00.9 Bacterial meningitis, unspecified; G93.41 Metabolic encephalopathy; G03.8 Meningitis due to other specified causes; N39.0 Urinary tract infection, site not specified; D84.821 Immunodeficiency due to drugs; A86 Unspecified viral encephalitis; Z68.43 Body mass index [BMI] 50.0-59.9, adult; C43.9 Malignant melanoma of skin, unspecified; K21.9 Gastro-esophageal reflux disease without esophagitis; E78.00 Pure hypercholesterolemia, unspecified; E11.9 Type 2 diabetes mellitus without complications; I10 Essential (primary) hypertension; E78.5 Hyperlipidemia, unspecified; Z66 Do not resuscitate; T45.1X5A Adverse effect of antineoplastic and immunosuppressive drugs, initial encounter; Z79.899 Other long term (current) drug therapy; Z79.51 Long term (current) use of inhaled steroids; Z79.4 Long term (current) use of insulin; Z79.84 Long term (current) use of oral hypoglycemic drugs; Z79.891 Long term (current) use of opiate analgesic; Z87.891 Personal history of nicotine dependence; E83.52 Hypercalcemia; E66.01 Morbid (severe) obesity due to excess calories; Z88.0 Allergy status to penicillin; G96.198 Other disorders of meninges, not elsewhere classified
CPT/HCPCS: 36415; 36416; 36592; 36600; 51702; 70450; 71045; 71260; 72125; 74177; 80051; 80053; 80061; 80202; 80307; 81001; 82140; 82306; 82310; 82330; 82805; 82962; 83010; 83036; 83605; 83615; 83735; 83880; 83970; 84100; 84145; 84443; 85025; 85610; 85730; 86140; 86403; 86635; 86695; 86696; 86698; 86787; 87040; 87086; 87305; 87449; 87798; 92523; 92526; 92610; 93005; 94640; 94660; 94664; 96365; 96372; 96374; 96375; 96376; 97110; 97162; 97530; 99285; A4570; C1751; J0133; J0360; J0630; J0692; J0696; J1171; J1630; J1650; J1815; J1953; J2060; J2185; J2270; J2470; J3370; J3465; J3486; J3490; J7030; J7042; J7050; J9999; Q3014